=== PATIENT | female | born 1930 | race African-American/Black ===

== ENCOUNTER 2017-12-28 12:47 | Outpatient (CLI) | payer MEDICARE, BC ==
--- NOTE | 2017-12-28 15:48 | MRI ---
MRI OF BRAIN PERFORMED WITHOUT CONTRAST ENHANCEMENT: History: Unstable gait and dizziness for about a month. FINDINGS: There is some generalized ventricular and sulcal prominence. The ventricular size appears fairly cons istent with the degree of sulcal atrophy. There is increased T2 and FLAIR signal change within the wh ite matter most compatible with chronic ischemic white matter ischemic change in a patient of this ag e. On the diffusion weighted sequence there are no signs to suggest any type of acute infarct. No eviden ce of hemorrhage or mass effect. Incidental note is made of empty sella. IMPRESSION: 1. Atrophy and chronic white matter change. 2. Empty sella. POS: LUPE
== END 2017-12-28 12:48 | disposition home or self-care (01) ==
LOC: BICMRI 12:47
PROVIDERS: ATTEND Family Medicine
DX: R26.9 Unspecified abnormalities of gait and mobility (principal); G31.9 Degenerative disease of nervous system, unspecified
CPT/HCPCS: 70551

== ENCOUNTER 2018-05-31 12:52 | Outpatient (CLI) | payer MEDICARE, BC ==
--- NOTE | 2018-05-31 14:07 | ULT ---
RENAL ULTRASOUND: Comparison: 03-08-18 History: Chronic kidney disease stage IV. Technique: Multiplanar grayscale and color doppler images were obtained in a renal ultrasound. FINDINGS: There are anechoic cysts in both kidneys. The largest is seen on the left measuring 3.1 cm in greates t dimension. The kidneys demonstrate normal cortical echogenicity without hydronephrosis or calculi a nd measure 9.3 and 9.2 cm in length on the right and left, respectively. Urinary bladder is decompressed. IMPRESSION: Bilateral renal cysts. POS: TONO
== END 2018-05-31 12:53 | disposition home or self-care (01) ==
LOC: BICULT 12:52
PROVIDERS: ATTEND Internal Medicine Nephrology
DX: N18.4 Chronic kidney disease, stage 4 (severe) (principal); N28.1 Cyst of kidney, acquired
CPT/HCPCS: 76770

== ENCOUNTER 2018-06-27 17:05 | Inpatient (IN) | payer MEDICARE, BC ==
[2018-06-27 18:12] LABS: #Lymphocytes 1.3 thou/uL (1.20-3.40); #Monocytes 0.7 thou/uL (0.11-0.59); #Neutrophils 6.4 thou/uL (1.40-6.50); %Basophils 0.4 % (0.0-1.0); %Eosinophils 0.6 % (0.0-10.0); %Lymphocytes 15.1 % (21.0-51.0); %Monocytes 8.2 % (0.0-10.0); %Neutrophils 75.8 % (42.0-75.0); Hemoglobin 8.9 g/dL (12.0-16.0); Mean Corpuscular HGB CONC 30.5 g/dL (32.0-36.0); Mean Corpuscular Hemoglobin 26.1 pg (27.0-31.0); Mean Corpuscular Volume 85.6 fL (78.0-98.0); Mean Platelet Volume 10.7 fL (7.4-10.4); Platelet Count 192 thou/uL (130-400); RBC Distribution Width 14.7 % (11.5-14.5); Red Blood Cell (RBC) Count 3.41 mill/uL (4.20-5.40); White Blood Cell (WBC) Count 8.4 thou/uL (4.8-10.8)
--- NOTE | 2018-06-27 18:19 | RAD ---
CHEST ONE VIEW: History: Dyspnea. Comparison: 03-08-18 FINDINGS: Cardiac silhouette is magnified and enlarged. Pulmonary vasculature upper limits of normal. Ill-defin ed opacity at the left lateral lung base now obscures the left lateral cardiophrenic angle. Slight le ftward shift of the mediastinum with aortic calcification. No evidence of pneumothorax. Prominent deg enerative changes of the shoulders. IMPRESSION: 1. Increasing atelectasis at the left lung base. Cause is not evident. 2. Atherosclerosis. POS: TONO
[2018-06-27 18:25] LABS: ALT (SGPT) 28 U/L (8-55); AST (SGOT) 27 U/L (5-34); Alkaline Phosphatase 142 U/L (40-150); Anion Gap 14 mmol/L (10-20); BUN (Urea Nitrogen) 54 mg/dL (9.8-20.1); Bilirubin, Total 0.2 mg/dL (0.2-1.2); Calc. Creatinine Clearance 0 mL/min (70-130); Calcium 9.9 mg/dL (7.8-10.44); Carbon Dioxide 20 mmol/L (23-31); Chloride 109 mmol/L (98-107); Estimated GFR-MDRD 16; Globulin 4.1 g/dL (2.4-3.5); Glucose 122 mg/dL (83-110); Protein, Total 8.1 g/dL (6.0-8.3); Sodium 136 mmol/L (136-145)
[2018-06-27 18:51] LABS: Potassium 7.3 mmol/L (3.5-5.1)
[2018-06-27] MEDS ORDERED: Furosemide 40 MG/4 ML VIAL ONE (19:23)
[2018-06-27] MEDS ORDERED: Albumin 25% 25 GM/100 ML BOT IVPB SCH (19:45)
[2018-06-27 21:08] LABS: Bilirubin Negative (Negative); Blood, Urine Negative (Negative); Clarity CLOUDY (Clear); Glucose, Urine (Dipstick) Negative (Negative); Leukocyte Negative (Negative); Nitrite Negative (Negative); Protein, Urine (Dipstick) 100 mg/dL (Neg-Trace); Specific Gravity, Urine 1.021 (1.002-1.036); Urobilinogen 0.2 mg/dL (0.2-1.0)
[2018-06-27 21:13] LABS: Bacteria/HPF None Seen HPF (None Seen); Hyaline Casts/LPF 4-6 HYALINE CAST LPF (0-3 Hyaline); Pathc Cast-AUWi Flag 0.54 (0-2.49)
[2018-06-27 21:23] LABS: RBC/HPF 0-3 HPF (0-3)
[2018-06-27 21:33] LABS: Troponin I 0.015 ng/mL (< 0.028)
[2018-06-27] MEDS ORDERED: Calcium Chloride 1 GM/10 ML Abboject SYRINGE IVP SCH (22:30)
--- NOTE | 2018-06-27 23:25 | HP ---
PRIMARY CARE PHYSICIAN: Dr. Gutierrez. THE PATIENT'S LABORER BITUMINOUS PAVING: Dr. Ferrell. CHIEF COMPLAINT: "Swelling and I can't breathe." HISTORY OF PRESENT ILLNESS: Ms. Howard is a pleasant 88-year-old female, who has a history of hypertension as well as chronic kidney disease. She was in her usual state of health until she says about 3 weeks ago after she left the hospital. She was placed on a new medication for her diabetes and she says ever since then, she has been swelling and she could not breathe. She says it has been more or less progressive to the point where she had to come to the hospital for evaluation. She also notes some cramping in her legs and she says when she would wake up in the morning, her face and hands would be swollen. She notices a little bit of nausea as well. She denies any chest pain, however. She denies any orthopnea, but she does say that she has to get up through the night short of breath off and on. She is also noted to eat quite a bit of bananas a day and when she came to the ER for evaluation, she was found to have a potassium of 7.3, her creatinine was 3.2, a bit higher than her baseline and she was found to have some borderline cardiomegaly. Nephrology has been called from the ER and she has been given Kayexalate as well as Lasix and she is being admitted for further evaluation. REVIEW OF SYSTEMS: All systems were reviewed and are negative except for that mentioned in the history of present illness. PAST MEDICAL HISTORY: Significant for chronic kidney disease stage 4, hypertension, diabetes mellitus type 2, and hypothyroidism. PAST SURGICAL HISTORY: She has had thyroid surgery, appendectomy, and hysterectomy. ALLERGIES: NO KNOWN DRUG ALLERGIES. SOCIAL HISTORY: She is . She had 6 children, three are living. Her code status, she would like to be a full code. She has never designated a medical power of emr implementation specialist, but says her children will "know what to do." She has a history of cerebrovascular disease in her mother, and her father had cerebrovascular disease. FAMILY HISTORY: Significant for a mother who had heart disease. CURRENT MEDICATIONS: 1. Januvia 50 mg daily. 2. Tramadol 50 mg q.6 hours as needed. 3. Levothyroxine 75 mcg p.o. daily. 4. Crestor 40 mg p.o. at bedtime. 5. Omeprazole 20 mg daily. 6. Calcitriol 0.25 mcg daily. 7. Hydralazine 25 mg t.i.d. 8. Metoprolol 25 mg twice a day. 9. Vitamin D daily. 10. Iron daily. PHYSICAL EXAMINATION: GENERAL: She is alert and oriented. She appears to be in no acute distress. She is well developed and well nourished and very cooperative with the exam and a bit chronically ill appearing. VITAL SIGNS: Blood pressure was 151/80, heart rate 45, respiratory rate of 18, temperature is 98.6. HEENT: Her pupils are equal, round, and reactive to light. Extraocular muscles are intact. Her sclerae anicteric. Throat, she has poor dentition, no erythema, no exudates. NECK: There is no jugular venous distention. No bruits. LUNGS: She has some bibasilar rales and an occasional expiratory wheeze. No rhonchi. CARDIOVASCULAR: Heart rate is irregular and bradycardic. She has a grade 2/6 systolic murmur to the carotids. ABDOMEN: Obese, it is soft, it is nontender and nondistended. Positive for bowel sounds. There is no rebound, no guarding. No organomegaly. EXTREMITIES: She has 2+ pitting edema bilaterally. No calf pain. NEUROLOGIC: Her cranial nerves are intact. Her muscle strength is 5/5 in both her lower extremities. SKIN AND INTEGUMENT: No significant skin changes, although she does have some mycotic nails and some long nails. IMAGING STUDIES: On her chest x-ray, she has cardiomegaly as well as increased pulmonary vascular markings and this is by my reading. On her EKG, she has atrial fibrillation. Her heart rates in the 40s. There was some left axis deviation and some T-wave abnormality in leads II and III. LABORATORY DATA: Sodium 136, potassium 7.3, chloride is 109, CO2 is 20, BUN of 54, creatinine 3.2, glucose is 122. Her white blood cell count is 8.4, hemoglobin 8.9, hematocrit is 29.2, and platelet count is 192. Urinalysis is essentially negative. ASSESSMENT: This is a pleasant 88-year-old female, who presents to the emergency room with shortness of breath. She was also found to be hyperkalemic dangerously so and the hyperkalemia is the most critical aspect of her presentation. 1. Hyperkalemia. This is likely due to dietary intake of excessive potassium rich foods in the face of renal insufficiency. She has been given Lasix and Kayexalate in the ER. Calcium chloride was considered; however, her heart rate is bradycardic and this could exacerbate the bradycardia; therefore, we will hold on this. Nephrology has already been consulted and we will recheck her potassium through the night and further recommendations are from Nephrology. We will also consult dietitian for a low-potassium diet and renal appropriate diet. 2. Acute respiratory failure, likely as a result of congestive heart failure exacerbation. She has been given Lasix in the ER and we will also get an echocardiogram as well. Consider Cardiology consult if necessary. 3. Hypertension. We will reconcile and restart her home medications and adjust as needed. 4. Diabetes mellitus. Due to her advanced kidney disease, we will discontinue all oral medications, and insulin is likely the safest medication in her situation. She will need to be taught on how to use insulin and we will start with a low-dose Lantus as well as adding a sliding scale. 5. Hypothyroidism. Continue her home medications and she does appear to be euthyroid. Job ID: [id number]
[2018-06-27] MEDS ORDERED: HumaLOG 300 UNITS/3 ML VIAL SC PRN ×2 (23:50)
[2018-06-27] MEDS ORDERED: Dextrose 5% in Water 1,000 ML IV PRN (23:50)
[2018-06-27] MEDS ORDERED: Dextrose 50% Abboject 50 ML SYRINGE SLOW IVP PRN (23:50)
[2018-06-28 00:36] LABS: Troponin I 0.017 ng/mL (< 0.028)
[2018-06-28 01:30] LABS: Potassium 5.7 mmol/L (3.5-5.1)
[2018-06-28 02:03] VITALS: BMI 27.2
[2018-06-28] MEDS: hydrALAZINE 20 MG/ML VIAL SLOW IVP PRN ×2 (03:37→11:19)
[2018-06-28 05:37] LABS: #Eosinphils 0.1 thou/uL (0.0-0.7); #Lymphocytes 1.8 thou/uL (1.20-3.40); #Monocytes 1.1 thou/uL (0.11-0.59); #Neutrophils 5.1 thou/uL (1.40-6.50); %Basophils 0.5 % (0.0-1.0); %Eosinophils 0.7 % (0.0-10.0); %Lymphocytes 22.2 % (21.0-51.0); %Monocytes 13.8 % (0.0-10.0); %Neutrophils 62.8 % (42.0-75.0); Hemoglobin 8.3 g/dL (12.0-16.0); Mean Corpuscular HGB CONC 30.5 g/dL (32.0-36.0); Mean Corpuscular Hemoglobin 26.4 pg (27.0-31.0); Mean Corpuscular Volume 86.5 fL (78.0-98.0); Mean Platelet Volume 11.5 fL (7.4-10.4); Platelet Count 158 thou/uL (130-400); RBC Distribution Width 14.6 % (11.5-14.5); Red Blood Cell (RBC) Count 3.16 mill/uL (4.20-5.40); White Blood Cell (WBC) Count 8.1 thou/uL (4.8-10.8)
[2018-06-28 05:58] LABS: Anion Gap 18 mmol/L (10-20); BUN (Urea Nitrogen) 54 mg/dL (9.8-20.1); Calc. Creatinine Clearance 14 mL/min (70-130); Calcium 9.9 mg/dL (7.8-10.44); Carbon Dioxide 19 mmol/L (23-31); Chloride 112 mmol/L (98-107); Estimated GFR-MDRD 17; Glucose 86 mg/dL (83-110); Potassium 5.9 mmol/L (3.5-5.1); Sodium 143 mmol/L (136-145)
[2018-06-28] MEDS: Levothyroxine Sodium 75 MCG TAB PO SCH (06:30)
[2018-06-28] MEDS: Furosemide 100 MG/10 ML VIAL SLOW IVP SCH ×2 (06:31→15:04)
[2018-06-28] MEDS ORDERED: Albumin 25% 25 GM/100 ML BOT IVPB ONE (08:55)
[2018-06-28] MEDS: Heparin 5,000 UNITS/ML VIAL SC SCH ×3 (08:57→21:29)
[2018-06-28] MEDS: hydrALAZINE 25 MG TAB PO SCH ×3 (08:58→21:31)
[2018-06-28] MEDS: Metoprolol Tartrate 25 MG TAB PO SCH ×2 (08:58→21:32)
[2018-06-28] MEDS ORDERED: Epoetin (ESRD) 20,000 UNITS/ML SC SCH (09:00)
--- NOTE | 2018-06-28 09:27 | PDOC.PN ---
- Subjective Encounter Start Date: 06/28/18 Encounter Start Time: 11:10 Subjective: Patient reports decreased SOB. No chest pain. No cough. - Objective Resuscitation Status - Order Detail: 06/27/18 22:43 Resuscitation Status Routine Resuscitation Status: FULL: Full Resuscitation MAR Reviewed: Yes Vital Signs & Weight: Vital Signs (12 hours) Temp Pulse Resp BP BP Pulse Ox 06/28/18 08:58 65 141/69 H 06/28/18 07:20 98.1 F 63 16 136/67 97 06/28/18 06:35 59 L 154/82 H 06/28/18 04:00 98.2 F 63 19 191/77 H 96 06/28/18 03:37 67 191/77 H 06/27/18 23:50 98.8 F 72 16 146/67 H 95 Weight Weight 158 lb 9.6 oz I&O: 06/27/18 06/28/18 06/29/18 06:59 06:59 06:59 Intake Total 0 Balance 0 Result Diagrams: 06/28/18 05:13 06/28/18 05:13 Additional Labs: Accuchecks 06/28/18 05:24 POC Glucose 99 Phys Exam - Physical Examination Constitutional: NAD HEENT: moist MMs Respiratory: no wheezing, no rales, no rhonchi Cardiovascular: RRR, no significant murmur Gastrointestinal: soft Neurological: non-focal, moves all 4 limbs Psychiatric: normal affect, A&O x 3 Dx/Plan (1) Hyperkalemia Code(s): E87.5 - HYPERKALEMIA Status: Acute (2) Acute renal failure superimposed on stage 4 chronic kidney disease Code(s): N17.9 - ACUTE KIDNEY FAILURE, UNSPECIFIED; N18.4 - CHRONIC KIDNEY DISEASE, STAGE 4 (SEVERE) Status: Acute (3) DM2 (diabetes mellitus, type 2) Status: Chronic Comment: controlled off meds currently (4) HTN (hypertension) Code(s): I10 - ESSENTIAL (PRIMARY) HYPERTENSION Status: Chronic Comment: moderate elevations (5) Shortness of breath Code(s): R06.02 - SHORTNESS OF BREATH Status: Acute Comment: possibly due to volume overload/CHF from renal failure, given Lasix in ER, not requiring oxygen, ECHO pending (6) Hypothyroidism Code(s): E03.9 - HYPOTHYROIDISM, UNSPECIFIED Status: Chronic Comment: continue home medication (7) Tobacco abuse Code(s): Z72.0 - TOBACCO USE Status: Chronic - Plan cont current plan of care, DVT proph w/heparin, DVT proph w/SCDs * . - Discharge Day Encounter end time: 11:20
--- NOTE | 2018-06-28 09:55 | CON ---
DATE OF CONSULTATION: HISTORY OF PRESENT ILLNESS: Ms. Howard is an 88-year-old black female with known history of chronic renal failure secondary to a presumed diabetic nephropathy. She was admitted due to her hyperkalemia. She was also complaining of some leg edema as well as mild shortness of breath. Chest x-ray on admission shows no overt CHF per se. However, potassium was noted at 7.3, and for that reason, she was admitted for further management. In addition, her renal function slightly worse than her baseline. We are being consulted for her acute kidney injury on top of her chronic renal failure. Potassium this morning is much improved. It is currently at 5.9. She is currently being diuresed at the same time due to her mild shortness of breath and leg edema. I have decided to place her on a regular salt poor albumin infusion. REVIEW OF SYSTEMS: Positive for leg edema. Positive for mild shortness of breath. No chest pain. No syncopal episode. No productive cough. No diarrhea. No constipation. Appetite and energy level is fair. No headache. No diplopia. No fever or chills. No hematochezia. No melena. No dysuria. No urinary frequency. No abdominal pain. MEDICATIONS: Currently on, 1. Albumin 25 g IV q.6. 2. Procrit 7500 units subcu daily. 3. Ferrous sulfate 325 mg b.i.d. 4. Furosemide 80 mg IV q.12. 5. Humalog sliding scale. 6. Synthroid 75 mcg daily. 7. Lopressor 25 mg p.o. b.i.d. 8. Protonix 40 mg tablet once a day. PAST MEDICAL HISTORY: 1. Chronic renal failure from diabetic nephropathy, hypertension, status post acute kidney injury - prerenal. 2. Hypothyroidism. 3. Chronic anemia from chronic renal disease. 4. History of hyperlipidemia. 5. GERD. 6. DJD. PAST SURGICAL HISTORY: Status post hysterectomy, status post appendectomy, status post excision of lung nodule - benign finding, and status post colonoscopy. SOCIAL HISTORY: The patient has 3 children. She lives alone. She lives in [place]. She is . Smoked about one pack a day for the last 50 years. Alcohol, none. No IV drug abuse. No blood transfusion. Sedentary lifestyle. FAMILY HISTORY: No family history of ESRD. ALLERGIES: NONE. TRAUMA: None. IMMUNIZATIONS: Not up-to-date. HOSPITALIZATIONS: Please see past medical history. PHYSICAL EXAMINATION: VITAL SIGNS: Blood pressure is noted at 136/67, heart rate 63, respiratory rate 16, temperature 98.1, and pulse ox 97%. GENERAL: Noted to be awake, comfortable, but somewhat lethargic, not in overt distress. SKIN: Adequate turgor. HEENT: Pale conjunctivae. Anicteric sclerae. NECK: No neck mass. No carotid bruits. No JVD. CHEST: No deformities. LUNGS: Decreased breath sounds. No wheezing. No crackles. HEART: Normal sinus rhythm. No murmur. No gallops. No rubs. ABDOMEN: Globular, soft, and nontender. No masses. EXTREMITIES: Positive for edema. NEUROLOGICAL: Awake, intermittently confused, not in distress. LABORATORY DATA: Laboratories of June 28, 2018; white count 8.1, hemoglobin 8.3. Sodium 143, potassium 5.9, chloride 112, carbon dioxide 19, BUN 54, creatinine 3.19, GFR 17 mL/minute, glucose 86, and calcium 9.9. Troponin I 0.017. IMAGING DATA: Chest x-ray, no overt CHF. ASSESSMENT AND PLAN: 1. Leg edema - currently on Lasix at 80 mg IV q.12. Adjust Lasix as needed. Continue to monitor renal function. 2. Acute kidney injury on top of her chronic renal failure. I suspect a prerenal etiology. Due to the current diuretic regimen, I have added albumin 25 g IV q.6 in the hope that she will tolerate the current diuretic regimen. I do not see any indication for acute dialysis with this patient. 3. Anemia. Start iron supplementation and Epogen. This patient may eventually need prison placement. I do not think she is able to care for herself at home. We will recheck basic metabolic panel and CBC in a.m. Job ID: [id number]
[2018-06-28] MEDS: Albumin 25% 25 GM/100 ML BOT IVPB SCH ×2 (11:07→18:06)
[2018-06-28] MEDS: Ferrous Sulfate 325 MG TAB PO SCH (18:06)
--- NOTE | 2018-06-28 18:58 | CON ---
DATE OF CONSULTATION: REASON FOR CONSULTATION: Shortness of breath, bradycardia, and atrial fibrillation. HISTORY OF PRESENT ILLNESS: Ms. Howard is an 88-year-old woman with no previous coronary artery disease, recently presented with a shortness of breath and ? atrial fibrillation with slow ventricular response. After reviewing her EKG, it appeared to be a junctional rhythm with PACs. Her shortness of breath per family and the patient have been slowly increasing over the last several months. She is also complaining of lower extremity edema. Her most recent echo suggested a normal LVEF with moderate aortic insufficiency and diastolic dysfunction. Current rate is a sinus rhythm. She has been on beta ajit therapy for hypertension. PAST MEDICAL HISTORY: Chronic kidney disease, diastolic dysfunction, hypertension, diabetes mellitus, and hypothyroidism. ALLERGIES: NONE. SOCIAL HISTORY: Currently . She has 3 living children. REVIEW OF SYSTEMS: Ten-point review of systems is reviewed and as above, otherwise negative. PHYSICAL EXAMINATION: VITAL SIGNS: Blood pressure 200/80 and down to 141/63, pulse 71, and respirations 20. GENERAL: Patient is a pleasant female, who is in no acute distress. The patient appears their stated age. NEUROLOGIC: The patient is alert and oriented x3 with no focal neurologic deficits. HEENT: Sclerae without icterus. Mouth has moist mucous membranes with normal pallor. NECK: No JVD. Carotid upstroke brisk. No bruits bilaterally. LUNGS: Clear to auscultation with unlabored respirations. BACK: No scoliosis or kyphosis. CARDIAC: Regular rate and rhythm with normal S1 and S2. No S3 or S4 noted. No significant rubs, murmurs, thrills, or gallops noted throughout the precordium. PMI is not displaced. There is no parasternal heave. ABDOMEN: Soft, nontender, nondistended. No peritoneal signs present. No hepatosplenomegaly. No abnormal striae. EXTREMITIES: 2+ femoral and 2+ dorsalis pedis pulses. No cyanosis, clubbing, or edema. SKIN: No gross abnormalities. PERTINENT LABORATORY DATA: Hemoglobin 8.3. Creatinine 3.19, potassium 5.9, and sodium 143. EKG as above. IMPRESSION: 1. Bradycardia. 2. Diastolic dysfunction. 3. Moderate aortic insufficiency. 4. Chronic kidney disease. RECOMMENDATIONS: At this point, we will stop beta ajit therapy. We would like to see her heart rate increased. She did appear to have junctional rhythm. May consider outpatient 3-week event recorder. Diuresis per Dr. Ferrell. She is currently on Lasix. Otherwise, aggressive blood pressure management is recommended. Continue conservative therapy. Job ID: [id number]
[2018-06-29] MEDS: Albumin 25% 25 GM/100 ML BOT IVPB SCH ×5 (00:36→20:13)
[2018-06-29 05:03] LABS: #Eosinphils 0.1 thou/uL (0.0-0.7); #Lymphocytes 1.5 thou/uL (1.20-3.40); #Monocytes 0.9 thou/uL (0.11-0.59); #Neutrophils 3.5 thou/uL (1.40-6.50); %Basophils 0.7 % (0.0-1.0); %Eosinophils 1.2 % (0.0-10.0); %Lymphocytes 25.3 % (21.0-51.0); %Monocytes 14.5 % (0.0-10.0); %Neutrophils 58.3 % (42.0-75.0); Hemoglobin 7.3 g/dL (12.0-16.0); Mean Corpuscular HGB CONC 31.8 g/dL (32.0-36.0); Mean Corpuscular Hemoglobin 26.9 pg (27.0-31.0); Mean Corpuscular Volume 84.8 fL (78.0-98.0); Mean Platelet Volume 10.7 fL (7.4-10.4); Platelet Count 150 thou/uL (130-400); RBC Distribution Width 14.4 % (11.5-14.5); Red Blood Cell (RBC) Count 2.69 mill/uL (4.20-5.40)
[2018-06-29 05:12] LABS: Anion Gap 15 mmol/L (10-20); BUN (Urea Nitrogen) 55 mg/dL (9.8-20.1); Calc. Creatinine Clearance 14 mL/min (70-130); Calcium 9.8 mg/dL (7.8-10.44); Carbon Dioxide 25 mmol/L (23-31); Chloride 106 mmol/L (98-107); Estimated GFR-MDRD 16; Glucose 75 mg/dL (83-110); Potassium 4.3 mmol/L (3.5-5.1); Sodium 142 mmol/L (136-145)
[2018-06-29] MEDS: Furosemide 100 MG/10 ML VIAL SLOW IVP SCH ×2 (05:41→10:18)
[2018-06-29] MEDS: Levothyroxine Sodium 75 MCG TAB PO SCH (05:41)
--- NOTE | 2018-06-29 06:10 | PDOC.CTH ---
Cardiology Progress Note - Subjective feels better overall. No complaints. - Objective Vital Signs Temp Pulse Resp BP BP Pulse Ox 06/28/18 21:31 65 138/61 06/28/18 19:30 99.3 F 65 16 138/61 99 Weight 158 lb 9.6 oz 06/27/18 06/28/18 06/29/18 06:59 06:59 06:59 Intake Total 0 500 Output Total 600 Balance 0 -100 - Physical Examination General/Neuro: NAD Neck: carotid US brisk, no JVD present Lungs: CTA, unlabored respirations Heart: PMI normal, RRR Abdomen: NT/ND, soft Extremities: + femoral B - Labs Result Diagrams: 06/29/18 03:50 06/29/18 03:50 Troponin/CKMB Troponin I 0.017 ng/mL (< 0.028) 06/28/18 00:03 - Assessment/Plan Dysrythmia SOB Anemia Moderate AI Diastolic dysfunction CKD Symptoms multifactorial Pt with CKD, Grade I diastolic dysfunction, anemia and moderate AI which all con contribute to current symptoms Treat each condition separately Pt with moderate AI(conservative treatment) in addition to diastolic dysfunction. Treat conservatively with lasix for now (Treatment per Dr. Ferrell) No new recommendations
[2018-06-29] MEDS ORDERED: Albumin 25% 25 GM/100 ML BOT IVPB ONE (07:57)
[2018-06-29] MEDS ORDERED: Furosemide 100 MG/10 ML VIAL SLOW IVP SCH (08:15)
--- NOTE | 2018-06-29 08:21 | PRG ---
DATE OF SERVICE: 06/29/2018 SUBJECTIVE: Ms. Howard is an 88-year-old black female with chronic renal failure, was admitted for mild shortness of breath as well as worsening leg edema. She has been started on diuretics. In addition, due to the worsening renal dysfunction, I started her on albumin infusion. Furthermore, Cardiology has evaluated this patient. The feeling is that she may have some degree of diastolic dysfunction. Creatinine is relatively stable. We will continue current management. The patient is feeling better. OBJECTIVE: VITAL SIGNS: Blood pressure 163/79, heart rate 64, respiratory rate 16, temperature 98.5, and pulse ox 96%. GENERAL: Awake, alert, comfortable, not in distress. SKIN: Adequate turgor. HEENT: Slightly pale conjunctivae. Anicteric sclerae. No neck mass. No carotid bruits. No JVD. CHEST: No deformities. LUNGS: Clear breath sounds. No wheezing. HEART: Normal sinus rhythm. Grade 2/6 systolic murmur. No gallops. No rubs. ABDOMEN: Globular, soft, nontender. EXTREMITIES: Positive for edema. MEDICATIONS: Medications of June 29, 2018, was reviewed. LABORATORY DATA: Laboratories of June 29, 2018; white count 6.6, hemoglobin 7.3, sodium 142, potassium 4.3, chloride 106, carbon dioxide 25, BUN 55, creatinine 3.28, GFR 16 mL/minute, calcium 9.8. ASSESSMENT AND PLAN: 1. Hyperkalemia much improved. Serum potassium is now within normal. 2. Mild congestive heart failure-diastolic dysfunction-clinically much improved. Adjust Lasix to 40 mg IV q.12. 3. Anemia, continuing weekly Epogen. Since the patient is symptomatic, we will give 1 unit of packed RBC. 4. Acute kidney injury on top of her chronic renal failure, relatively stable renal function. Continue albumin infusion. Continue judicious use of diuretics. There is no indication for any emergent dialysis with this patient. Recheck basic metabolic profile and CBC in a.m. Job ID: [id number]
[2018-06-29] MEDS: Ferrous Sulfate 325 MG TAB PO SCH ×2 (08:41→16:23)
[2018-06-29] MEDS: Metoprolol Tartrate 25 MG TAB PO SCH ×2 (08:43→20:23)
[2018-06-29] MEDS: Heparin 5,000 UNITS/ML VIAL SC SCH ×3 (08:43→20:22)
[2018-06-29] MEDS: hydrALAZINE 25 MG TAB PO SCH ×3 (08:43→20:23)
--- NOTE | 2018-06-29 09:11 | PDOC.PN ---
- Subjective Encounter Start Date: 06/29/18 Encounter Start Time: 11:00 Subjective: Patient feeling better. Diuresing well. No SOB/Cough. - Objective Resuscitation Status - Order Detail: 06/27/18 22:43 Resuscitation Status Routine Resuscitation Status: FULL: Full Resuscitation MAR Reviewed: Yes Vital Signs & Weight: Vital Signs (12 hours) Temp Pulse Resp BP BP Pulse Ox 06/29/18 07:33 98.5 F 64 16 163/79 H 96 06/28/18 21:31 65 138/61 Weight Weight 158 lb 9.6 oz I&O: 06/28/18 06/29/18 06/30/18 06:59 06:59 06:59 Intake Total 0 950 Output Total 2250 Balance 0 -1300 Result Diagrams: 06/29/18 03:50 06/29/18 03:50 Additional Labs: Accuchecks 06/29/18 06/28/18 06/28/18 05:57 20:40 17:31 POC Glucose 90 90 128 H 06/28/18 10:41 POC Glucose 89 Phys Exam - Physical Examination Constitutional: NAD HEENT: moist MMs Respiratory: no rales, no rhonchi occ wheeze Cardiovascular: RRR, no significant murmur Gastrointestinal: soft, non-tender, positive bowel sounds trace edema Psychiatric: normal affect, A&O x 3 Dx/Plan (1) Hyperkalemia Code(s): E87.5 - HYPERKALEMIA Status: Resolved (2) Acute renal failure superimposed on stage 4 chronic kidney disease Code(s): N17.9 - ACUTE KIDNEY FAILURE, UNSPECIFIED; N18.4 - CHRONIC KIDNEY DISEASE, STAGE 4 (SEVERE) Status: Acute Comment: stable, albumin and lasix (3) DM2 (diabetes mellitus, type 2) Status: Chronic Comment: controlled off meds currently (4) HTN (hypertension) Code(s): I10 - ESSENTIAL (PRIMARY) HYPERTENSION Status: Chronic Comment: moderate elevations (5) Shortness of breath Code(s): R06.02 - SHORTNESS OF BREATH Status: Acute Comment: possibly due to volume overload/CHF from renal failure, given Lasix in ER, not requiring oxygen, ECHO with AI and mild diastolic dysfunction, treat with diuresis as tolerated (6) Hypothyroidism Code(s): E03.9 - HYPOTHYROIDISM, UNSPECIFIED Status: Chronic Comment: continue home medication (7) Tobacco abuse Code(s): Z72.0 - TOBACCO USE Status: Chronic - Plan cont current plan of care, PT/OT, DVT proph w/heparin, DVT proph w/SCDs * . - Discharge Day Encounter end time: 11:10
[2018-06-30] MEDS: hydrALAZINE 20 MG/ML VIAL SLOW IVP PRN ×2 (03:54→16:56)
[2018-06-30] MEDS: Albumin 25% 25 GM/100 ML BOT IVPB SCH ×4 (03:58→20:36)
[2018-06-30] MEDS: Acetaminophen 325 MG TAB PO PRN (03:58)
[2018-06-30] MEDS: Levothyroxine Sodium 75 MCG TAB PO SCH (06:33)
[2018-06-30] MEDS: Furosemide 100 MG/10 ML VIAL SLOW IVP SCH (06:33)
[2018-06-30 07:29] LABS: Anion Gap 19 mmol/L (10-20); BUN (Urea Nitrogen) 59 mg/dL (9.8-20.1); Calc. Creatinine Clearance 13 mL/min (70-130); Calcium 10.6 mg/dL (7.8-10.44); Carbon Dioxide 24 mmol/L (23-31); Chloride 104 mmol/L (98-107); Eosinophils 1 % (0-10); Estimated GFR-MDRD 16; Glucose 77 mg/dL (83-110); Hemoglobin 8.9 g/dL (12.0-16.0); Lymphocytes 24 % (21-51); MDiff Complete? YES; Mean Corpuscular HGB CONC 31.6 g/dL (32.0-36.0); Mean Corpuscular Hemoglobin 26.5 pg (27.0-31.0); Mean Platelet Volume 10.7 fL (7.4-10.4); Monocytes 16 % (0-10); Neutrophil 59 % (42-75); Platelet Count 151 thou/uL (130-400); Platelet Morphology Comment Appears Adequate; Potassium 3.7 mmol/L (3.5-5.1); RBC Distribution Width 14.6 % (11.5-14.5); Red Blood Cell (RBC) Count 3.34 mill/uL (4.20-5.40); Sodium 143 mmol/L (136-145); White Blood Cell (WBC) Count 7.3 thou/uL (4.8-10.8)
[2018-06-30] MEDS ORDERED: Albumin 25% 25 GM/100 ML BOT IVPB ONE (08:17)
[2018-06-30] MEDS: Ferrous Sulfate 325 MG TAB PO SCH ×2 (08:25→16:56)
[2018-06-30] MEDS: Metoprolol Tartrate 25 MG TAB PO SCH ×2 (08:26→20:36)
[2018-06-30] MEDS: hydrALAZINE 25 MG TAB PO SCH ×3 (08:26→20:36)
[2018-06-30] MEDS: Furosemide 40 MG/4 ML VIAL SLOW IVP SCH (08:34)
[2018-06-30] MEDS: Heparin 5,000 UNITS/ML VIAL SC SCH ×3 (08:35→20:36)
--- NOTE | 2018-06-30 08:39 | PRG ---
DATE OF SERVICE: 06/30/2018 SUBJECTIVE: Ms. Howard is an 88-year-old black female, who was admitted from mild shortness of breath with leg edema. She was started on diuresis. In addition, cardiac echo showed diastolic dysfunction. Cardiology is also following. I have further adjusted her Lasix downwards. Albumin infusion was given in the last 2 days. She was also noted to be anemic, and we gave her 1 unit of packed RBC. In addition, she has been started on iron and Procrit. No new complaints today. Denies any chest pain or shortness of breath. OBJECTIVE: VITAL SIGNS: Blood pressure 149/67, heart rate 65, respiratory rate 16, temperature 99.7, and pulse ox 97% on room air. GENERAL: Awake, alert, comfortable, not in distress. SKIN: Adequate turgor. HEENT: Slightly pale conjunctivae. Anicteric sclerae. No neck mass. No carotid bruits. No JVD. CHEST: No deformities. LUNGS: Decreased breath sounds. HEART: Normal sinus rhythm. No murmurs, no gallops, no rubs. ABDOMEN: Globular, soft, nontender. No masses. EXTREMITIES: No edema. MEDICATIONS: Medications of June 30, 2018, was reviewed. LABORATORY DATA: Laboratories of June 30, 2018; white count 7.3, hemoglobin 8.9, hematocrit 28.1. Sodium 143, potassium 3.7, chloride 104, carbon dioxide 24, BUN 59, creatinine 3.32, glucose 77, and calcium 10.6. ASSESSMENT AND PLAN: 1. Acute kidney injury/chronic renal failure. Creatinine minimally elevated 3.32 when compared yesterday. I have decreased the furosemide from 40 mg IV q.12 to once a day. We will give her one more day of albumin infusion. No indication for any dialytic intervention. 2. Anemia, status post blood transfusion. Continuing iron supplementation and Procrit. 3. Shortness of breath secondary to diastolic dysfunction. Currently, on a diuretic regimen. Diuretics have been adjusted. 4. Recheck basic metabolic profile, CBC in a.m. Job ID: [id number]
[2018-06-30] MEDS ORDERED: Furosemide 100 MG/10 ML VIAL SLOW IVP SCH (09:00)
--- NOTE | 2018-06-30 09:30 | PDOC.PN ---
- Subjective Encounter Start Date: 06/30/18 Encounter Start Time: 11:10 Subjective: No CP/SOB/Cough/Wheezing. Doing well. - Objective Resuscitation Status - Order Detail: 06/27/18 22:43 Resuscitation Status Routine Resuscitation Status: FULL: Full Resuscitation MAR Reviewed: Yes Vital Signs & Weight: Vital Signs (12 hours) Temp Pulse Resp BP BP Pulse Ox 06/30/18 08:26 68 06/30/18 08:19 97.9 F 68 20 179/75 H 96 06/30/18 05:12 65 149/67 H 06/30/18 03:54 65 190/78 H 06/30/18 03:34 99.7 F H 63 16 190/78 H 97 06/29/18 23:32 98.5 F 56 L 22 H 169/69 H 99 Weight Weight 149 lb 3.2 oz I&O: 06/29/18 06/30/18 07/01/18 06:59 06:59 06:59 Intake Total 950 1950 Output Total 2250 2000 Balance -1300 -50 Result Diagrams: 06/30/18 06:43 06/30/18 06:43 Additional Labs: Accuchecks 06/30/18 06/29/18 06/29/18 05:12 20:12 16:44 POC Glucose 81 137 H 87 06/29/18 11:09 POC Glucose 112 H Phys Exam - Physical Examination Constitutional: NAD HEENT: moist MMs Respiratory: no wheezing, no rales, no rhonchi Cardiovascular: RRR Gastrointestinal: soft, positive bowel sounds Neurological: non-focal, moves all 4 limbs Psychiatric: normal affect, A&O x 3 Dx/Plan (1) Hyperkalemia Code(s): E87.5 - HYPERKALEMIA Status: Resolved (2) Acute renal failure superimposed on stage 4 chronic kidney disease Code(s): N17.9 - ACUTE KIDNEY FAILURE, UNSPECIFIED; N18.4 - CHRONIC KIDNEY DISEASE, STAGE 4 (SEVERE) Status: Acute Comment: stable, albumin and lasix (3) DM2 (diabetes mellitus, type 2) Status: Chronic Comment: controlled off meds currently (4) HTN (hypertension) Code(s): I10 - ESSENTIAL (PRIMARY) HYPERTENSION Status: Chronic Comment: moderate elevations (5) Shortness of breath Code(s): R06.02 - SHORTNESS OF BREATH Status: Acute Comment: possibly due to volume overload/CHF from renal failure, given Lasix in ER, not requiring oxygen, ECHO with AI and mild diastolic dysfunction, treat with diuresis as tolerated (6) Hypothyroidism Code(s): E03.9 - HYPOTHYROIDISM, UNSPECIFIED Status: Chronic Comment: continue home medication (7) Tobacco abuse Code(s): Z72.0 - TOBACCO USE Status: Chronic - Plan cont current plan of care, PT/OT, DVT proph w/heparin, DVT proph w/SCDs Dr. Ferrell decreasing Lasix, one more day of albumin, possibly home tomorrow -: if ok from renal standpoint * . - Discharge Day Encounter end time: 11:20
[2018-06-30] MEDS ORDERED: Rosuvastatin 10 MG TAB PO SCH (21:00)
[2018-07-01] MEDS: Levothyroxine Sodium 75 MCG TAB PO SCH (04:47)
[2018-07-01] MEDS: Albumin 25% 25 GM/100 ML BOT IVPB SCH (04:47)
[2018-07-01 06:43] LABS: Anion Gap 18 mmol/L (10-20); BUN (Urea Nitrogen) 68 mg/dL (9.8-20.1); Calc. Creatinine Clearance 13 mL/min (70-130); Calcium 10.6 mg/dL (7.8-10.44); Carbon Dioxide 23 mmol/L (23-31); Chloride 104 mmol/L (98-107); Estimated GFR-MDRD 15; Glucose 82 mg/dL (83-110); Potassium 3.6 mmol/L (3.5-5.1); Sodium 141 mmol/L (136-145)
[2018-07-01 07:14] LABS: Hemoglobin 9.1 g/dL (12.0-16.0); Mean Corpuscular HGB CONC 31.5 g/dL (32.0-36.0); Mean Corpuscular Hemoglobin 26.7 pg (27.0-31.0); Mean Platelet Volume 10.7 fL (7.4-10.4); Platelet Count 158 thou/uL (130-400); RBC Distribution Width 14.6 % (11.5-14.5); Red Blood Cell (RBC) Count 3.41 mill/uL (4.20-5.40); White Blood Cell (WBC) Count 7.2 thou/uL (4.8-10.8)
[2018-07-01 07:52] LABS: Anisocytosis SLIGHT = 6-15 cells (100X) (0-5/hpf); Band 2 % (5-11); Elliptocytes SLIGHT = 2-5 cells (100X) (0-1/hpf); Eosinophils 1 % (0-10); Hypochromia SLIGHT = 6-15 cells (100X) (0-5/hpf); Lymphocytes 23 % (21-51); MDiff Complete? YES; Monocytes 3 % (0-10); Neutrophil 70 % (42-75); Ovalocytes SLIGHT = 2-5 cells (100X) (0-1/hpf); Platelet Morphology Comment Appears Adequate; Poikilocytosis SLIGHT = 6-15 cells (100X) (0-5/hpf); Polychromasia SLIGHT = 2-3 cells (100X) (0-2/hpf); Schistocytes SLIGHT = 2-5 cells (100X) (0-1/hpf)
[2018-07-01] MEDS: Heparin 5,000 UNITS/ML VIAL SC SCH (08:14)
[2018-07-01] MEDS: Metoprolol Tartrate 25 MG TAB PO SCH (08:15)
[2018-07-01] MEDS: Ferrous Sulfate 325 MG TAB PO SCH (08:15)
[2018-07-01] MEDS: hydrALAZINE 25 MG TAB PO SCH (08:15)
[2018-07-01] MEDS: Furosemide 40 MG/4 ML VIAL SLOW IVP SCH (08:15)
[2018-07-01] MEDS ORDERED: Furosemide 20 MG/2 ML VIAL SLOW IVP SCH (09:00)
[2018-07-01] MEDS ORDERED: Calcitriol 0.25 MCG CAP PO SCH (09:00)
[2018-07-01] MEDS ORDERED: Furosemide 40 MG/4 ML VIAL SLOW IVP SCH (09:21)
--- NOTE | 2018-07-01 09:54 | PRG ---
DATE OF SERVICE: 07/01/2018 SUBJECTIVE: Ms. Howard is an 88-year-old black female, who was seen by the Renal Service for her hyperkalemia and acute kidney injury on top of her chronic renal failure. She initially was admitted for mild shortness of breath and complained of leg edema. She has been diuresing given albumin infusion. Renal function is relatively stable except for the smaller incremental increase in the creatinine. I have further adjusted the diuretics today downwards. Her leg edema is much improved. She denies any chest pain or shortness of breath. OBJECTIVE: VITAL SIGNS: Blood pressure 179/69, heart rate 60, respiratory rate 17, temperature 98.8, and pulse ox 97%. GENERAL: Awake, alert, sitting comfortable, not in distress. SKIN: Adequate turgor. HEENT: She has a slightly pale conjunctivae. Anicteric sclerae. NECK: No neck mass. No carotid bruits. No JVD. CHEST: No deformities. LUNGS: Clear breath sounds. No wheezing. No crackles. HEART: Normal sinus rhythm. No murmurs. No gallops. No rubs. ABDOMEN: Globular, soft, and nontender. No masses. EXTREMITIES: No edema. No deformities. MEDICATIONS: Medications of July 01, 2018, reviewed. LABORATORY DATA: Laboratories of July 01, 2018, white count 7.2 and hemoglobin 9.1. On June 30, 2018; sodium was 143, potassium 3.7, chloride 104, carbon dioxide 24, BUN 59, creatinine 3.32, and calcium 10.6. ASSESSMENT AND PLAN: 1. Acute kidney injury/chronic renal failure - superimposed prerenal azotemia. Continue adjusting diuretics downwards. No indication for any dialytic intervention. 2. Anemia. The patient has been started on iron supplementation and Epogen. 3. Congestive heart failure, clinically much improved. 4. Leg edema dramatically much improved. Continue current management. Recheck basic metabolic and CBC in a.m. Job ID: [id number]
[2018-07-01 10:19] LABS: Anion Gap 16 mmol/L (10-20); BUN (Urea Nitrogen) 67 mg/dL (9.8-20.1); Calc. Creatinine Clearance 12 mL/min (70-130); Calcium 10.6 mg/dL (7.8-10.44); Carbon Dioxide 24 mmol/L (23-31); Chloride 104 mmol/L (98-107); Estimated GFR-MDRD 15; Glucose 133 mg/dL (83-110); Potassium 3.2 mmol/L (3.5-5.1); Sodium 141 mmol/L (136-145)
--- NOTE | 2018-07-01 11:04 | DIS ---
DATE OF ADMISSION: 06/27/2018 DATE OF DISCHARGE: 07/01/2018 DISCHARGE DIAGNOSES: 1. Acute on chronic diastolic heart failure. 2. Acute respiratory failure with hypoxia. 3. Hyperkalemia. 4. Acute kidney injury. 5. Chronic kidney disease, stage 4. 6. Hypothyroidism. 7. Hypertension. 8. Type 2 diabetes mellitus. 9. Anemia of chronic disease/chronic kidney disease. 10. Bradycardia. 11. Moderate aortic regurgitation. 12. Obesity. 13. Physical deconditioning. CONSULTS: 1. Nephrology. 2. Cardiology. HOSPITAL COURSE: An 88-year-old female with known history of CKD, hypertension, and type 2 diabetes, who was admitted due to worsening shortness of breath and swelling. The patient was found on presentation to have severe hyperkalemia with potassium of 7.3. She also was noted to have irregular heart rate and bradycardia. Impression of acute respiratory failure with hypoxia due to acute CHF was made and the patient was treated for hyperkalemia with dextrose/insulin, Kayexalate and others with resolution. She also was started on diuretics with improvement of swelling and shortness of breath and was subsequently weaned off oxygen. Due to irregular heart rate and rhythm, the patient was felt to have atrial fibrillation and Cardiology consult was obtained. However, review of the rhythm showed junctional rhythm and bradycardia. This was felt to be due to hyperkalemia and beta-ajit. Beta-ajit was stopped and heart rate improved and was subsequently restarted. The patient also was noted to have hypertension, which was not well controlled. Hence, antihypertensives were adjusted appropriately with improvement in blood pressure control. She also was found to have elevation in creatinine consistent with BIRDIE and CKD, stage 4. Nephrology consult was obtained and diuretics was adjusted, and the patient also received colloid with improvement. The patient received physical therapy and was ambulating. She remained hemodynamically stable and was subsequently discharged home with home health. Of note, the patient was on Januvia 50 mg p.o. daily prior to admission, but this was decreased to 25 mg p.o. daily in line with kidney function. PHYSICAL EXAMINATION: VITAL SIGNS: Temperature 98.8, pulse 60, respiratory rate 17, SpO2 of 97 on room air, and blood pressure 179/69. GENERAL: Elderly female, in no obvious distress. Afebrile. Anicteric. Acyanotic. HEENT: Normocephalic, atraumatic. Oral mucosa is moist. Pupils are equal and reacting to light. CARDIOVASCULAR: Regular rhythm and rate with normal sounds 1 and 2. Systolic murmur heard at aortic area. RESPIRATORY: Good air entry bilaterally with no obvious crackle or rhonchi or use of accessory muscles. GASTROINTESTINAL: Abdomen is obese, soft, nontender, and nondistended with normal bowel sounds. EXTREMITIES: Grossly normal looking and atraumatic. No edema was appreciated. NEUROLOGIC: Conscious and alert and oriented x3 with appropriate mental status. Cranial nerves II through XII are intact. The patient moves all extremities. She ambulates with a walker. DISCHARGE MEDICATIONS: 1. Tramadol 50 mg p.o. q.6 p.r.n. 2. Levothyroxine 75 mcg p.o. daily. 3. Omeprazole 20 mg p.o. daily. 4. Crestor 40 mg p.o. daily at bedtime. 5. Tylenol 650 mg p.o. q.6 p.r.n. 6. Amlodipine 5 mg p.o. daily. 7. Calcitriol 0.25 mcg p.o. daily. 8. Cholecalciferol 1000 units p.o. daily. 9. Ferrous sulfate 325 mg p.o. b.i.d. 10. Lasix 40 mg p.o. b.i.d. 11. Hydralazine 50 mg p.o. t.i.d. 12. Metoprolol 25 mg p.o. b.i.d. 13. Januvia 25 mg p.o. daily. CONDITION AT DISCHARGE: Improved and stable. FOLLOWUP: The patient is to follow with PCP in 1 week. She is to follow with economics instructor in 2 weeks. She also is to follow with electrical prospector in 3 to 4 weeks. TIME SPENT: This discharge took more than 38 minutes. Job ID: [id number]
[2018-07-01 11:45] VITALS: BP 146/66; TEMP 98.3
[2018-07-01] MEDS: Acetaminophen 325 MG TAB PO PRN (12:05)
--- NOTE | 2018-07-02 21:51 | EKG ---
Test Reason : Blood Pressure : / mmHG Vent. Rate : 043 BPM Atrial Rate : 040 BPM P-R Int : 000 ms QRS Dur : 088 ms QT Int : 508 ms P-R-T Axes : 000 -36 044 degrees QTc Int : 429 ms Atrial fibrillation with slow ventricular response Left axis deviation Voltage criteria for left ventricular hypertrophy Abnormal ECG Confirmed by BANDAR HADLEY, DRE ([id number]), videotape editor TONY AGARWAL ([id number]) on 07/02/2018 9:51:27 PM Referred By: Confirmed By:DRE PORTILLO MD
== END 2018-07-01 13:46 | disposition home health service (06) | DRG 640 ==
LOC: ERS 17:05 → ERHOLD 21:13 → 2NO 23:27
PROVIDERS: ADMIT Internal Medicine; ATTEND Internal Medicine
DX: E87.5 Hyperkalemia (principal); I50.33 Acute on chronic diastolic (congestive) heart failure; J96.01 Acute respiratory failure with hypoxia; I13.0 Hypertensive heart and chronic kidney disease with heart failure and stage 1 through stage 4 chronic kidney disease, or unspecified chronic kidney disease; N17.9 Acute kidney failure, unspecified; N18.4 Chronic kidney disease, stage 4 (severe); E03.9 Hypothyroidism, unspecified; E11.22 Type 2 diabetes mellitus with diabetic chronic kidney disease; D63.1 Anemia in chronic kidney disease; I35.1 Nonrheumatic aortic (valve) insufficiency; K21.9 Gastro-esophageal reflux disease without esophagitis; M19.90 Unspecified osteoarthritis, unspecified site; Z90.710 Acquired absence of both cervix and uterus; Z90.49 Acquired absence of other specified parts of digestive tract; Z72.0 Tobacco use; Z79.4 Long term (current) use of insulin; Z79.899 Other long term (current) drug therapy
CPT/HCPCS: 36415; 36416; 36430; 71045; 80048; 80053; 81003; 81015; 84132; 84484; 85025; 86850; 86900; 86901; 87086; 93005; 93306; 93798; 96365; 96366; 96375; J0360; J1644; J1940; J7620; P9016; P9047; Q4081

== ENCOUNTER 2018-10-13 01:05 | Inpatient (IN) | payer MEDICARE, BC ==
[2018-10-13] MEDS ORDERED: methylPREDNISolone Sod Succ/PF 125 MG/2 ML VIAL ONE (01:11)
[2018-10-13 01:40] LABS: Mean Corpuscular Volume 86.8 fL (78.0-98.0)
[2018-10-13 01:51] LABS: #Eosinphils 0.1 thou/uL (0.0-0.7); #Lymphocytes 2.9 thou/uL (1.20-3.40); #Neutrophils 4.9 thou/uL (1.40-6.50); %Basophils 0.5 % (0.0-1.0); %Eosinophils 0.8 % (0.0-10.0); %Lymphocytes 32.5 % (21.0-51.0); %Monocytes 11.6 % (0.0-10.0); %Neutrophils 54.5 % (42.0-75.0); ALT (SGPT) 24 U/L (8-55); AST (SGOT) 25 U/L (5-34); Albumin 3.5 g/dL (3.4-4.8); Alkaline Phosphatase 97 U/L (40-150); Anion Gap 13 mmol/L (10-20); Anisocytosis SLIGHT = 6-15 cells (100X) (0-5/hpf); BUN (Urea Nitrogen) 51 mg/dL (9.8-20.1); Bilirubin, Total 0.2 mg/dL (0.2-1.2); Calc. Creatinine Clearance 0 mL/min (70-130); Calcium 9.9 mg/dL (7.8-10.44); Carbon Dioxide 18 mmol/L (23-31); Chloride 114 mmol/L (98-107); Estimated GFR-MDRD 18; Globulin 2.9 g/dL (2.4-3.5); Glucose 119 mg/dL (83-110); Hemoglobin 8.5 g/dL (12.0-16.0); MDiff Complete? YES; Mean Corpuscular HGB CONC 29.5 g/dL (32.0-36.0); Mean Corpuscular Hemoglobin 25.6 pg (27.0-31.0); Mean Platelet Volume 10.8 fL (7.4-10.4); Platelet Count 165 thou/uL (130-400); Potassium 6.4 mmol/L (3.5-5.1); Protein, Total 6.4 g/dL (6.0-8.3); RBC Distribution Width 17.1 % (11.5-14.5); Red Blood Cell (RBC) Count 3.33 mill/uL (4.20-5.40); Sodium 139 mmol/L (136-145)
[2018-10-13] MEDS ORDERED: Furosemide 40 MG/4 ML VIAL ONE (04:13)
[2018-10-13] MEDS ORDERED: traMADol HCl 50 MG TAB ONE ×2 (05:07→05:10)
--- NOTE | 2018-10-13 08:04 | RAD ---
Exam: Chest one view HISTORY:Dyspnea Comparison: 06/27/2018 FINDINGS: Lungs: Interstitial opacities bilaterally Cardiac silhouette:Enlarged Pulmonary vessels: Engorgement is demonstrated, centrally Pleural Spaces: Mild blunting of each costophrenic sulcus, similar appearing. Pneumothorax: None Vascular calcification. Osseous abnormalities: None of acuity. IMPRESSION: CHF with edema
[2018-10-13] MEDS ORDERED: Ondansetron PF 4 MG/2 ML Vial IVP PRN (12:22)
[2018-10-13] MEDS ORDERED: Ondansetron ODT 4 MG TAB PO PRN (12:22)
[2018-10-13] MEDS ORDERED: Acetaminophen 650 MG Suppository PR PRN (12:22)
[2018-10-13] MEDS ORDERED: Dextrose 5% in Water 1,000 ML IV PRN (14:58)
[2018-10-13] MEDS ORDERED: HumaLOG 300 UNITS/3 ML VIAL SC PRN (14:58)
[2018-10-13] MEDS ORDERED: Dextrose 50% Abboject 50 ML SYRINGE SLOW IVP PRN (14:58)
[2018-10-13] MEDS ORDERED: Furosemide 20 MG TAB PO SCH (15:30)
[2018-10-13 15:39] VITALS: BMI 27.6
--- NOTE | 2018-10-13 16:06 | HP ---
CHIEF COMPLAINT: Shortness of breath. HISTORY OF PRESENT ILLNESS: Ms. Christopher Howard is a pleasant 88-year-old woman, who is known to have COPD and uses oxygen at home intermittently, who presented yesterday with complaints of shortness of breath. The patient states she was at home when her daughter had plugged in a new air freshener which she states she does often and the patient suddenly developed cough. She states she could not tolerate the smell of the air freshener and attempted to unplug it, but continued to cough causing her to become short of breath. She therefore called EMS. On arrival of the EMS crew, she was noted to be saturating 100% on room air. She was given 2 nebulizer treatments en route to the hospital. The patient states she often experiences triggers with air fresheners and sometimes with freshly mowed lawn at her home. She is usually able to manage this with her oxygen. The patient states she does continue to smoke, but usually goes through 1 pack in a month. She denies any recent fevers, chills, or sweats. She does have a cough at baseline that is dry and not worse than usual. Denies any hemoptysis. Has not had any chest pain. No abdominal pain or cramping. Reports a decreased appetite since she was diagnosed with hypothyroidism, but she continues to make herself food and eats well in order to take her regular medications. She denies having any headaches, she occasionally feels lightheaded when standing. All other review of systems are negative. PAST MEDICAL HISTORY: 1. End-stage renal disease, seen by Dr. Ferrell. 2. Type 2 diabetes mellitus. 3. Hypothyroidism. 4. Hypertension. 5. COPD. 6. Tobacco use. PAST SURGICAL HISTORY: 1. Left lung, benign tumor removed. 2. Appendectomy. 3. Hysterectomy. 4. Thyroidectomy. 5. Tonsillectomy. SOCIAL HISTORY: The patient lives with her daughter. She continues to smoke and states she will smoke 1 pack per month. Has been smoking for the last 30 years and previously smoked 2 packs per day. Denies any illicit drug use. No alcohol consumption. ALLERGIES: NO KNOWN DRUG ALLERGIES. CURRENT MEDICATIONS: 1. Omeprazole. 2. Tramadol. 3. Hydralazine. 4. Januvia. 5. Calcitriol. 6. Levothyroxine. 7. Metoprolol tartrate. 8. Vitamin D3. 9. Crestor. PHYSICAL EXAMINATION: GENERAL: The patient appears thin, well developed, and in no acute distress. VITAL SIGNS: Temperature 98.5, pulse 43, respirations 22, O2 saturation 97% on room air, blood pressure 123/50. HEENT: Normocephalic and atraumatic. Pupils are equal, round, reactive to light. Sclerae without icterus. Oropharynx is clear. NECK: Supple. CARDIAC: Notable for loud holosystolic murmur. LUNGS: Notable for expiratory wheezing throughout all lung ceron. No crackles. ABDOMEN: Soft, nontender, nondistended. Normoactive bowel sounds present. EXTREMITIES: Without lower leg edema. NEUROLOGIC: Alert and oriented x3. SKIN: Without rash or jaundice. LABORATORY DATA: White blood count 9, hemoglobin 8.5, stable, platelet 165. Sodium 139, potassium 6.4, BUN 51, creatinine 3.1. Glucose 119. LFTs unremarkable. Lactic acid 1.2. BNP 495.9. Troponin negative. IMAGING DATA: Chest x-ray shows mild CHF. IMPRESSION AND PLAN: Ms. Hoawrd is a very pleasant 88-year-old woman, who is being referred for management of the following. 1. Chronic obstructive pulmonary disease exacerbation. The patient states shortness of breath and coughing was triggered by air fresheners. She usually has a reaction to at home. No evidence of infective process. We will continue DuoNeb's as the patient does have wheezing on exam. We will continue to monitor O2 saturations. 2. Congestive heart failure. The patient with known history of heart failure with an elevated BNP. Echocardiogram requested. We will give a low dose of Lasix 20 mg p.o., given she does have end-stage renal disease. We will hold off on any fluids. 3. Bradycardia. Metoprolol held with morning meds in the ED, due to bradycardia , HR remains in 40-low 50s. Cardiology consult requested. 4. End-stage renal disease. Renal function appears stable. We will consult Dr. Ferrell, her gas analyst. 5. Gastrointestinal prophylaxis. 6. Deep venous thrombosis prophylaxis with mechanical sequential compression devices. 7. Code status full. Surrogate decision makers are her daughters, which are Alex Osei and Daniella Osei. The patient's case was discussed with Dr. Keller, who agrees upon care as described above. Job ID: [id number] MTDD
[2018-10-13] MEDS: HumaLOG 300 UNITS/3 ML VIAL SC PRN (16:52)
[2018-10-13] MEDS ORDERED: traMADol HCl 50 MG TAB PO PRN (16:54)
[2018-10-13] MEDS ORDERED: EPOETIN ALFA-EPBX (ESRD) 4,000 UNIT/ML VIAL SC SCH (17:45)
--- NOTE | 2018-10-13 18:05 | CON ---
DATE OF CONSULTATION: 10/13/2018 REASON FOR CONSULTATION: Heart failure. HISTORY OF PRESENT ILLNESS: Ms. Howard is a pleasant 88-year-old female patient of Dr. Escobar, who comes to the hospital for shortness of breath. She was at home and she says that there is an air freshener that is really aggravating to her as far as the smell is concern, eventually started to get short of breath and was brought into the hospital. She had some lower extremity edema, was started on IV Lasix, and has already diuresed some and is feeling much better back to her baseline. She denies any chest pain, tightness, or pressure. Her breathing is at baseline. PAST MEDICAL HISTORY: 1. She has history of COPD, on home oxygen. She only uses it when she needs it at home. 2. Chronic kidney disease stage 4, followed by Dr. Ferrell. 3. Type 2 diabetes. 4. Hypothyroidism. 5. Hypertension. 6. Tobacco use, one pack lasts for about a month. PAST SURGICAL HISTORY: 1. Left lung tumor removed. 2. Appendectomy. 3. Hysterectomy. 4. Thyroidectomy. 5. Tonsillectomy. SOCIAL HISTORY: Lives with her daughter. Continues to smoke a pack lasts for a whole month. She has done so for the last 30 years. Used to be 2 packs a day. No drug use. No alcohol use. OUTPATIENT MEDICATIONS: Include; 1. Omeprazole. 2. Tramadol. 3. Hydralazine. 4. Januvia. 5. Calcitriol. 6. Levothyroxine. 7. Metoprolol tartrate. 8. Vitamin D3. 9. Crestor. ALLERGIES: NO KNOWN DRUG ALLERGIES. REVIEW OF SYSTEMS: A 12-point review of systems was done and was all negative unless stated in the history of present illness. PHYSICAL EXAMINATION: VITAL SIGNS: Temperature 98.1, pulse 63, respiratory rate 20, saturating 98% on room air, and blood pressure 174/89. In the ER, her blood pressure was 144/60 on arrival. GENERAL: Awake, alert, and oriented x3, in no distress. HEENT: Normocephalic and atraumatic. NECK: Supple. LUNGS: Clear. CARDIOVASCULAR: S1 and S2. No S3 or S4. No murmurs. ABDOMEN: Soft. Positive bowel sounds. EXTREMITIES: No edema. SKIN: Warm and dry. LABORATORY DATA: Laboratory work was reviewed. CBC with a white count of 9, hemoglobin of 8.5, hematocrit 28, platelet count of 165. Chemistry; sodium of 139, potassium 6.4, chloride 114, carbon dioxide of 18, anion gap of 13, BUN of 51, creatinine 3.01, GFR of 18, glucose of 119. Lactic acid was normal. BNP was mildly elevated at 495. Troponin was negative x1. IMAGING STUDIES: EKG was reviewed. Most recent echo was done in June of this year, EF of 55% to 60%. There was LVH and diastolic dysfunction. ASSESSMENT AND PLAN: 1. Acute on chronic diastolic heart failure. 2. Chronic obstructive pulmonary disease exacerbation, most likely mild. PLAN: 1. Agree with diuresis. I would give her one more dose of IV Lasix at 20 mg once, and if she remains as she looks right now, she should be able to go home tomorrow as she is quite stable for now. 2. We would continue home regimen, but would increase her hydralazine to 50 t.i.d. to control her blood pressure a little bit better. Thank you for letting us to participate in the care of your patient. We will continue to follow. Job ID: [id number]
[2018-10-13] MEDS ORDERED: hydrALAZINE 25 MG TAB PO SCH (21:00)
[2018-10-13] MEDS: hydrALAZINE 25 MG TAB PO SCH (21:21)
[2018-10-13] MEDS: Rosuvastatin 20 MG TAB PO SCH (21:21)
[2018-10-13] MEDS: Famotidine/PF 20 mg/2ml Vial SLOW IVP SCH (21:22)
--- NOTE | 2018-10-13 23:43 | CON ---
DATE OF CONSULTATION: HISTORY OF PRESENT ILLNESS: Ms. Howard is an 88-year-old black female with chronic renal failure from presumed diabetic nephropathy and admitted for shortness of breath. The etiology of her shortness of breath is multifactorial - COPD exacerbation/from CHF. She was given one-time dose of Lasix in addition. Neb treatment has been started. According to the patient, her shortness of breath was precipitated by exposure to an allergen? She was in the clinic about 2 weeks ago. At that time, she was asymptomatic. Please note, review of her meds shows that she was not on any diuretic at that time. Recently, she has been started on diuresis by her PCP? We are now being consulted for her mild hyperkalemia as well as worsening renal dysfunction - creatinine is now noted at 3.01. Previously, this was 2.54. A Cardiology consult has been also done with Dr. Blair. REVIEW OF SYSTEMS: Positive for shortness of breath. No chest pain. No nausea. No vomiting. No syncopal episode. Positive for nonproductive cough. No abdominal pain. Appetite and energy level are fair. No headache. No diplopia. No syncopal episode. No fever or chills. No dysuria. No melena. No hematemesis. HOME MEDICATIONS: Shows the following, 1. Furosemide 40 mg p.o. b.i.d. 2. Amlodipine 5 mg daily. 3. Acetaminophen 650 mg q.4 p.r.n. 4. Vitamin D3 at 1000 international daily. 5. Ferrous sulfate 325 mg p.o. b.i.d. 6. Furosemide 40 mg p.o. b.i.d. 7. Levothyroxine 75 mcg tablet daily. 8. Rosuvastatin 40 mg tablet at bedtime. 9. Metoprolol tartrate 25 mg p.o. b.i.d. 10. Omeprazole 20 mg once a day. 11. Hydralazine 50 mg p.o. t.i.d. 12. Januvia 25 mg daily. 13. Tramadol 50 mg q.6 p.r.n. 14. Calcitriol 0.25 mcg tablet daily. PAST MEDICAL HISTORY: 1. Status post CHF. 2. Chronic renal failure from diabetic nephropathy. 3. Hypertension. 4. Type 2 diabetes mellitus. 5. Hyperlipidemia. 6. Hypothyroidism. 7. Chronic anemia. 8. Chronic pain. 9. History of GERD. PAST SURGICAL HISTORY: Status post hysterectomy, status post excision of lung nodule, status post appendectomy, status post colonoscopy. SOCIAL HISTORY: The patient lives alone. She has good support from her children. She lives in [place]. She is . Smoked 1 pack a day for the last 50 years - occasional smoking. Alcohol none. No drug abuse. No blood transfusion. Sedentary lifestyle. FAMILY HISTORY: No family history of ESRD. ALLERGIES: NONE. TRAUMA: None. IMMUNIZATION: Not up to date. HOSPITALIZATIONS: Please see past medical history. PHYSICAL EXAMINATION: VITAL SIGNS: Blood pressure is 174/89, heart rate 58, respiratory rate 16, pulse ox 98% on room air. GENERAL: Awake, alert, comfortable, not in distress. SKIN: Adequate turgor. HEENT: Slightly pale conjunctivae. Anicteric sclerae. NECK: No neck mass. No carotid bruits. No JVD. CHEST: No deformities. LUNGS: Decreased breath sounds. HEART: She has normal sinus rhythm. She has grade 2/6 systolic murmur. No gallops. No rubs. ABDOMEN: Globular, soft, nontender. No masses. EXTREMITIES: No edema. No deformities. LABORATORY DATA: Laboratories of October 13, 2018; white count 9, hemoglobin 8.5. Sodium 139, potassium 6.4, chloride 104, carbon dioxide 18, BUN 51, creatinine 3.01, glucose 119, calcium 9.9, AST 25, ALT 24, alkaline phosphatase 97, albumin is 3.5. BNP is 495. Chest x-ray of October 13, 2018, shows interstitial opacities bilaterally. ASSESSMENT AND PLAN: 1. Chronic renal failure from diabetic nephropathy. Creatinine has worsened from 2.54 to most recent value of 3.01. Currently, she is at stage 4 chronic renal failure. There may be a prerenal component - ? from CHF. 2. Continue supportive care. P.r.n. diuretics as needed. I would probably resume her Lasix at 40 mg tablet once a day. 3. Mild hyperkalemia. Kayexalate 30 g with lactulose 30 mL one-time dose. I do not think there is indication for any emergent dialysis with this patient. 4. Anemia. Continue iron supplementation. We will add Epogen at 7500 units subcu q. week. 5. Secondary hyperparathyroidism. Continue calcitriol. 6. Recheck basic metabolic profile, CBC in a.m. 7. Chronic obstructive pulmonary disease exacerbation. Consider starting the patient on neb treatment if she has not been started on this. Job ID: [id number]
[2018-10-14] MEDS: Levothyroxine Sodium 75 MCG TAB PO SCH (04:11)
[2018-10-14 04:46] LABS: #Lymphocytes 1.7 thou/uL (1.20-3.40); #Monocytes 1.4 thou/uL (0.11-0.59); #Neutrophils 10.1 thou/uL (1.40-6.50); %Basophils 0.2 % (0.0-1.0); %Lymphocytes 13.1 % (21.0-51.0); %Monocytes 10.7 % (0.0-10.0); %Neutrophils 76.1 % (42.0-75.0); Hemoglobin 8.5 g/dL (12.0-16.0); Mean Corpuscular HGB CONC 29.9 g/dL (32.0-36.0); Mean Corpuscular Hemoglobin 25.7 pg (27.0-31.0); Mean Platelet Volume 10.5 fL (7.4-10.4); Platelet Count 147 thou/uL (130-400); White Blood Cell (WBC) Count 13.3 thou/uL (4.8-10.8)
[2018-10-14 05:05] LABS: Anion Gap 13 mmol/L (10-20); BUN (Urea Nitrogen) 51 mg/dL (9.8-20.1); Calc. Creatinine Clearance 17 mL/min (70-130); Calcium 9.9 mg/dL (7.8-10.44); Carbon Dioxide 20 mmol/L (23-31); Chloride 110 mmol/L (98-107); Estimated GFR-MDRD 19; Glucose 93 mg/dL (83-110); Potassium 5.1 mmol/L (3.5-5.1); Sodium 138 mmol/L (136-145)
[2018-10-14] MEDS: Acetaminophen 325 MG TAB PO PRN ×2 (06:19→15:20)
[2018-10-14] MEDS: Calcitriol 0.25 MCG CAP PO SCH (08:56)
[2018-10-14] MEDS: Furosemide 40 MG TAB PO SCH (08:56)
[2018-10-14] MEDS: Alogliptin 6.25 MG TAB PO SCH (08:56)
[2018-10-14] MEDS: Doxycycline 100 MG CAP PO SCH ×2 (08:57→20:52)
[2018-10-14] MEDS: hydrALAZINE 25 MG TAB PO SCH ×3 (08:58→20:53)
[2018-10-14] MEDS ORDERED: predniSONE 20 MG TAB PO SCH (09:00)
[2018-10-14 09:06] LABS: Lactic Acid 1.8 mmol/L (0.5-2.2)
--- NOTE | 2018-10-14 09:40 | PRG ---
DATE OF SERVICE: 10/14/2018 SUBJECTIVE: Ms. Howard is 88-year-old black female admitted initially for mild shortness of breath. The feeling of this could be multifactorial. Most likely from chronic obstructive pulmonary disease exacerbation. She was empirically given one time dose of Lasix and currently placed on maintenance at 40 mg tablet once a day. Renal function is now much improved. She was also noted to have been hyperkalemic and she received one dose of Kayexalate. Potassium is also much improved. No new complaints today. No chest pain or shortness of breath. OBJECTIVE: VITAL SIGNS: Blood pressure 129/61, heart rate 86, respiratory rate 16, temperature 98.8, pulse ox 98%. GENERAL: Awake, sitting comfortable, not in distress. SKIN: Adequate turgor. HEENT: Slightly pale conjunctivae. Anicteric sclerae. No neck mass. No carotid bruits. No JVD. CHEST: No deformities. LUNGS: Clear breath sounds. No wheezing. No crackles. HEART: Normal sinus rhythm. Grade 2/6 systolic murmur. No gallops or rubs. ABDOMEN: Globular, soft, nontender. No masses. EXTREMITIES: No edema. No deformities. MEDICATIONS: Medications of October 14, 2018, was reviewed. LABORATORY DATA: Laboratories of October 14, 2018, sodium 138, potassium 5.1, chloride 110, carbon dioxide 20, BUN 51, creatinine 2.82, GFR 19 mL/minute, glucose 93, calcium 9.9. Hemoglobin 8.5. ASSESSMENT AND PLAN: 1. Shortness of breath, multifactorial etiology. Considering chronic obstructive pulmonary disease exacerbation as well as mild congestive heart failure. Currently on neb treatment. Currently on maintenance Lasix 40 mg tablet once a day. She is tolerating the said medication. 2. Acute kidney injury/chronic renal failure, stabilizing renal function. Creatinine now is near baseline. Continue current management. Continue current dose of the diuretics. There is no indication for any dialytic intervention. 3. Anemia. Epogen has been started. 4. Overall agree with current management. Job ID: [id number]
[2018-10-14 11:47] LABS: Bilirubin Negative (Negative); Blood, Urine Negative (Negative); Clarity Clear (Clear); Glucose, Urine (Dipstick) Normal (Negative); Leukocyte Negative Leu/uL (Negative); Nitrite Negative (Negative); Protein, Urine (Dipstick) Negative (Neg-Trace); RBC/HPF 0-3 HPF (0-3); Squamous Epithelial 0-3 HPF (0-3); Urobilinogen Normal mg/dL (Less than 2); WBC/HPF None Seen HPF (0-3)
[2018-10-14 11:57] LABS: Bacteria/HPF None Seen HPF (None Seen)
[2018-10-14 11:58] LABS: Urine Culture Reflex No No
--- NOTE | 2018-10-14 12:50 | PDOC.CTH ---
Cardiology Progress Note - Subjective She is doing well. No chest pain, breathing at baseline on room air. - Objective Vital Signs Temp Pulse Resp BP BP Pulse Ox 10/14/18 10:55 98.4 F 89 20 159/69 H 96 10/14/18 10:41 92 16 97 10/14/18 08:58 86 10/14/18 07:48 98.8 F 86 16 129/61 98 10/14/18 06:37 82 16 98 10/14/18 04:07 99.2 F 84 21 H 109/50 L 97 Weight 162 lb 6.4 oz 10/13/18 10/14/18 10/15/18 06:59 06:59 06:59 Intake Total 625 300 Balance 625 300 - Physical Examination General/Neuro: alert & oriented x3, NAD Neck: no JVD present Lungs: CTA, unlabored respirations Heart: RRR Abdomen: NT/ND Extremities: other: (no edema) - Telemetry Telemetry Rhythm: NSR - Labs Result Diagrams: 10/14/18 04:21 10/14/18 04:21 Troponin/CKMB Troponin I 0.015 ng/mL (< 0.028) 10/13/18 01:21 - Assessment/Plan 1. Acute on chronic diastolic heart failure. 2. COPD. 3. Mild and moderate AR on recent echo. PLAN: - Continue home regimen. - Continue increased dose of Hydralazine at 50 mg TID from now on. - May discharge from cardiac perspective any time. - Follow up in the office with Dr Escobar in 1-2 months.
--- NOTE | 2018-10-14 13:33 | RAD ---
XR Chest Pa Lat STANDARD HISTORY: Cough COMPARISON: Previous day FINDINGS: The heart is enlarged. The aorta is tortuous. There is mild pulmonary vascular congestion w ithout lobar consolidation, pneumothoraces or large effusions.
[2018-10-14] MEDS: Nicotine 7 MG PATCH TD SCH (15:21)
--- NOTE | 2018-10-14 16:00 | PDOC.PN ---
- Subjective Encounter Start Date: 10/14/18 Encounter Start Time: 12:59 Subjective: Patient complaining of SOB and feeling weak. Denies any chest pain. -: No cough. When seen this morning she was feeling great and without any -: complaints. She states she feels generally unwell. Noted to be tachy. She denies any palpitations. Has been getting scheduled nebs. No other complaints. Eating/drinking without difficulty. No n/v. - Objective Resuscitation Status - Order Detail: 10/13/18 12:22 Resuscitation Status Routine Co-Sign Provider: Resuscitation Status: FULL: Full Resuscitation Vital Signs & Weight: Vital Signs (12 hours) Temp Pulse Resp BP BP BP Pulse Ox 10/14/18 15:35 98.7 F 122 H 20 187/74 H 98 10/14/18 14:45 110 H 16 170/72 H 96 10/14/18 14:30 106 H 16 98 10/14/18 10:55 98.4 F 89 20 159/69 H 96 10/14/18 10:41 92 16 97 10/14/18 08:58 86 10/14/18 07:48 98.8 F 86 16 129/61 98 10/14/18 06:37 82 16 98 10/14/18 04:07 99.2 F 84 21 H 109/50 L 97 Weight Weight 162 lb 6.4 oz I&O: 10/13/18 10/14/18 10/15/18 06:59 06:59 06:59 Intake Total 625 540 Balance 625 540 Result Diagrams: 10/14/18 04:21 10/14/18 04:21 Additional Labs: Accuchecks 10/14/18 10/13/18 10/13/18 11:07 20:45 16:49 POC Glucose 132 H 200 H 182 H Phys Exam - Physical Examination Appears fatigued, no severe distress HEENT: moist MMs, sclera anicteric, oral pharynx no lesions Neck: no nodes, supple, full ROM Respiratory: no wheezing, no rales, no rhonchi, clear to auscultation bilateral diminished at the bases bilaterally Cardiovascular: RRR Gastrointestinal: soft, non-tender, no distention Musculoskeletal: no edema, pulses present Neurological: non-focal, normal sensation, moves all 4 limbs Psychiatric: normal affect, A&O x 3 Skin: no rash, normal turgor Dx/Plan (1) CHF (congestive heart failure) Code(s): I50.9 - HEART FAILURE, UNSPECIFIED Status: Chronic Plan: (2) Acute renal failure superimposed on stage 4 chronic kidney disease Code(s): N17.9 - ACUTE KIDNEY FAILURE, UNSPECIFIED; N18.4 - CHRONIC KIDNEY DISEASE, STAGE 4 (SEVERE) Status: Acute Comment: stable, albumin and lasix (3) Chronic obstructive asthma with exacerbation Code(s): J44.1 - CHRONIC OBSTRUCTIVE PULMONARY DISEASE W (ACUTE) EXACERBATION; J45.901 - UNSPECIFIED ASTHMA WITH (ACUTE) EXACERBATION Status: Acute (4) DM2 (diabetes mellitus, type 2) Status: Chronic Comment: controlled off meds currently (5) HTN (hypertension) Code(s): I10 - ESSENTIAL (PRIMARY) HYPERTENSION Status: Chronic Comment: moderate elevations - Plan cont current plan of care CXR: Mild CHF with edema, treated with Lasix 40 mg. -: Tachy in 100s to 130s. No chest pain/palpitations. EKG HR 106. -: Per Dr. Blair, give Lasix IV and monitor overnight, possible d/c tmrw. -: Nebs scheduled and possibly contributing to tachycardia, changed to PRN. -: Patient now agreeable to Nicotine patch. Dr. Keller aware and in agreement with plan as above. Of note, I was notified by [facility] Echo was cancelled at Dr. Ruiz direction due to Echo done in 06/2018.
[2018-10-14] MEDS: HumaLOG 300 UNITS/3 ML VIAL SC PRN (17:01)
[2018-10-14] MEDS ORDERED: Furosemide 40 MG/4 ML VIAL SLOW IVP SCH (17:30)
[2018-10-14] MEDS: Rosuvastatin 20 MG TAB PO SCH (20:53)
[2018-10-14] MEDS: Famotidine/PF 20 mg/2ml Vial SLOW IVP SCH (20:53)
[2018-10-15] MEDS: Levothyroxine Sodium 75 MCG TAB PO SCH (05:55)
[2018-10-15 06:04] LABS: #Lymphocytes 1.2 thou/uL (1.20-3.40); #Monocytes 1.3 thou/uL (0.11-0.59); #Neutrophils 8.6 thou/uL (1.40-6.50); %Basophils 0.1 % (0.0-1.0); %Eosinophils 0.1 % (0.0-10.0); %Lymphocytes 10.5 % (21.0-51.0); %Monocytes 11.4 % (0.0-10.0); %Neutrophils 77.9 % (42.0-75.0); Hemoglobin 8.3 g/dL (12.0-16.0); Mean Corpuscular HGB CONC 28.8 g/dL (32.0-36.0); Mean Corpuscular Hemoglobin 24.7 pg (27.0-31.0); Mean Corpuscular Volume 85.7 fL (78.0-98.0); Mean Platelet Volume 10.8 fL (7.4-10.4); Platelet Count 159 thou/uL (130-400); RBC Distribution Width 17.1 % (11.5-14.5); Red Blood Cell (RBC) Count 3.35 mill/uL (4.20-5.40); White Blood Cell (WBC) Count 11.1 thou/uL (4.8-10.8)
[2018-10-15 06:25] LABS: Anion Gap 15 mmol/L (10-20); BUN (Urea Nitrogen) 55 mg/dL (9.8-20.1); Calc. Creatinine Clearance 16 mL/min (70-130); Calcium 9.8 mg/dL (7.8-10.44); Carbon Dioxide 21 mmol/L (23-31); Chloride 109 mmol/L (98-107); Estimated GFR-MDRD 19; Glucose 81 mg/dL (83-110); Potassium 4.8 mmol/L (3.5-5.1); Sodium 140 mmol/L (136-145)
--- NOTE | 2018-10-15 06:56 | PRG ---
DATE OF SERVICE: 10/15/2018 HISTORY OF PRESENT ILLNESS: Ms. Howard is an 88-year-old black female, who was admitted for shortness of breath. Chest x-ray showed CHF. The other possibility, there is also contribution of COPD exacerbation. This morning, she is feeling better. She is currently on maintenance Lasix at 40 mg tablet once a day. Yesterday afternoon, she developed some shortness of breath. A chest x-ray was repeated. This was relatively unchanged from admission. There is a suggestion that there is a mild CHF. The patient denies any chest pain. OBJECTIVE: VITAL SIGNS: Blood pressure is 145/67, heart rate 108, respiratory rate 18, temperature 98.3, and pulse ox 99 percent room air. GENERAL EXAM: Awake, alert, comfortable, not in overt distress. SKIN: Adequate turgor. HEENT: She has a slightly pale conjunctivae. Anicteric sclerae. No neck mass. No carotid bruits. No JVD. LUNGS: Clear breath sounds with occasional wheezing. HEART: Normal sinus rhythm. Grade 2/6 systolic murmur. No gallops. No rubs. ABDOMEN: Globular, soft, nontender. EXTREMITIES: No edema, no deformities. MEDICATIONS: Medications of October 15, 2018, was reviewed. LABORATORY DATA: Laboratories of October 15, 2018; white count 11.1, hemoglobin 8.3. Sodium 140, potassium 4.8, chloride 109, carbon dioxide 21, BUN 55, creatinine 2.82, glucose 81, calcium 9.8. ASSESSMENT AND PLAN: 1. Acute kidney injury/chronic renal failure, superimposed prerenal azotemia, improving renal function, tolerating current diuretic regimen. Continue Lasix 40 mg tablet once daily. There is no indication for any dialytic intervention with this patient. 2. Hyperkalemia, resolved. 3. Shortness of breath, multifactorial etiology. 4. Continue Lasix 40 mg tablet once daily. 5. Please note, neb treatment placed on hold due to the tachycardia. 6. She does have some wheezing. However, the patient remains asymptomatic today. We will be rechecking another basic metabolic profile and CBC tomorrow, if the patient is still here. Job ID: [id number]
[2018-10-15] MEDS: Doxycycline 100 MG CAP PO SCH ×2 (08:38→20:45)
[2018-10-15] MEDS: predniSONE 20 MG TAB PO SCH (08:38)
[2018-10-15] MEDS: Calcitriol 0.25 MCG CAP PO SCH (08:38)
[2018-10-15] MEDS: hydrALAZINE 25 MG TAB PO SCH ×3 (08:38→20:45)
[2018-10-15] MEDS: Alogliptin 6.25 MG TAB PO SCH (08:38)
[2018-10-15] MEDS: Furosemide 40 MG TAB PO SCH (08:38)
--- NOTE | 2018-10-15 11:17 | PDOC.PN ---
- Subjective Encounter Start Date: 10/15/18 Encounter Start Time: 11:16 Subjective: Patient states shes feeling weak and short of breath. She had an episode of -: chest pain at 6am this morning, sharp and lasting an hour. It settled on -: its own. She was afraid to bother anyone therefore did not tell her nurse. She is pain free now. Reports feeling weak and lightheaded. Has been up to bedside commode. Denies any fevers or chills. Had a headache last night that resolved with Tylenol. No n/v. Eating without difficulty. - Objective Resuscitation Status - Order Detail: 10/13/18 12:22 Resuscitation Status Routine Co-Sign Provider: Resuscitation Status: FULL: Full Resuscitation Vital Signs & Weight: Vital Signs (12 hours) Temp Pulse Resp BP BP BP Pulse Ox 10/15/18 08:38 84 180/85 H 10/15/18 07:26 98.1 F 84 20 180/85 H 98 10/15/18 03:11 98.3 F 108 H 18 145/67 H 99 10/14/18 23:57 99.4 F 100 20 139/64 97 Weight Weight 157 lb 14.4 oz I&O: 10/14/18 10/15/18 10/16/18 06:59 06:59 06:59 Intake Total 625 890 Output Total 400 Balance 625 490 Result Diagrams: 10/15/18 05:28 10/15/18 05:28 Additional Labs: Accuchecks 10/15/18 10/14/18 10/14/18 06:06 20:52 16:37 POC Glucose 99 202 H 188 H Phys Exam - Physical Examination Constitutional: NAD Appears fatigued. HEENT: PERRLA, sclera anicteric, oral pharynx no lesions Neck: no nodes, no JVD, supple, full ROM Respiratory: wheezing present shallow breaths with expiratory wheezing Cardiovascular: RRR murmur (known moderate ) Gastrointestinal: soft, non-tender, no distention, positive bowel sounds Musculoskeletal: no edema, pulses present Neurological: non-focal, normal sensation, moves all 4 limbs Psychiatric: normal affect, A&O x 3 Skin: no rash Dx/Plan (1) Chest pain Code(s): R07.9 - CHEST PAIN, UNSPECIFIED Status: Acute Plan: Recurring episode of chest pain this am. Repeat EKG. Troponins. For cardiology review. (2) CHF exacerbation Code(s): I50.9 - HEART FAILURE, UNSPECIFIED Status: Acute Plan: - Patient with mild CHF/edema on initial CXR - Started on Lasix 40 mg PO, repeat CXR showed pulmonary congestion. - Patient with SOB. Given additional dose of IV Lasix 40 mg yesterday PM. - Seen and cleared by Dr. Blair, however advised to keep patient overnight given tachycardia (100s to 130s). EKG: Sinus tach HR 106. - Echo was cancelled by [facility] yesterday per Dr. Blair. Recent Echo in 2018 with moderate . (3) Chronic obstructive asthma with exacerbation Code(s): J44.1 - CHRONIC OBSTRUCTIVE PULMONARY DISEASE W (ACUTE) EXACERBATION; J45.901 - UNSPECIFIED ASTHMA WITH (ACUTE) EXACERBATION Status: Acute Plan: Patient improved with Prednisone 40 mg PO daily and Duo nebs Q4H scheduled. Cleared by cardiology and due to persisting tachycardia, prednisone decreased to 20 mg PO daily and duonebs moved to PRN. She has not been receiving them but wheezing again. - ABG. PRN O2 which she uses at home. Continuous O2 sat monitoring. - Duo nebs scheduled Q6H. Continue oral abx. (no evidence of pneumonia on CXR, afebrile, WCC normal). (4) CHF (congestive heart failure) Code(s): I50.9 - HEART FAILURE, UNSPECIFIED Status: Chronic (5) Acute renal failure superimposed on stage 4 chronic kidney disease Code(s): N17.9 - ACUTE KIDNEY FAILURE, UNSPECIFIED; N18.4 - CHRONIC KIDNEY DISEASE, STAGE 4 (SEVERE) Status: Chronic Comment: stable, albumin and lasix (6) DM2 (diabetes mellitus, type 2) Status: Chronic Comment: controlled off meds currently (7) HTN (hypertension) Code(s): I10 - ESSENTIAL (PRIMARY) HYPERTENSION Status: Chronic Comment: moderate elevations - Plan * .
[2018-10-15 14:04] LABS: Actual Bicarbonate (HCO3a) 20.8 mEq/L (22-28); Analyzer IN Cardio OR; CO2 Tension 36.7 mmHg (35.0-45.0); Calcium, Ionized 1.21 mmol/L (1.12-1.30); Carboxyhemoglobin (COHb) 0.2 gm% (0.0-3.0); Hemoglobin (Hb) 10.1 g/dL (12.0-16.0); O2 Tension (PaO2) 83.9 mmHg (> 60.0); Potassium - ABG Lab 4.38 mmol/L (3.70-5.30); pH, Arterial 7.37 (7.35-7.45)
[2018-10-15 14:05] LABS: ALV-art Gradient 19.955 (0-20); Puncture Site LR
--- NOTE | 2018-10-15 14:45 | NM ---
NUCLEAR MEDICINE LUNG VENTILATORY AND PERFUSION EVALUATION INDICATION: Shortness of breath, chest pain, elevated d-dimer, history of COPD, CHF and renal failure Radiopharmaceutical: Ventilation: 15 mCi xenon-133 mCi xenon-133 inhaled. Perfusion: 6 mCi of technetium 99m MAA IV mCi technetium 99m MAA IV. COMPARISON: Chest radiograph dated 10/14/2018 at 1:32 PM FINDINGS: Ventilation: The ventilatory examination was unsuccessful due to patient's inability to achieve a hong p breath and inhale completely. Perfusion: There are patchy areas of subsegmental perfusion defects within the right and left lung. T he cardiac silhouette obscures portions of the lingula and left lower lobe Mismatch: Cannot be assessed Additional findings: None. IMPRESSION: Patchy areas of subsegmental perfusion abnormalities involving the right and left lung ar e nonspecific can be seen with air trapping or small subsegmental pulmonary emboli. Ventilatory examination could not be performed due to patient's inability to perform breath-hold.
--- NOTE | 2018-10-15 16:06 | ULT ---
EXAM: Bilateral lower extremity venous duplex: Deep veins evaluated with color Doppler, spectral analysis, and compression. INDICATIONS: Bilateral lower extremity pain and edema. FINDINGS: Deep veins interrogated include common femoral vein, femoral vein, popliteal vein, and post erior tibial vein. These veins show normal compression and blood flow. No evidence of DVT. IMPRESSION: Negative Bilateral venous duplex exam.
[2018-10-15] MEDS: Nicotine 7 MG PATCH TD SCH (17:07)
[2018-10-15] MEDS: Rosuvastatin 20 MG TAB PO SCH (20:47)
[2018-10-15] MEDS ORDERED: Famotidine 20 MG TAB PO SCH (21:00)
[2018-10-16 06:14] LABS: #Basophils 0.1 thou/uL (0.0-0.2); #Lymphocytes 1.7 thou/uL (1.20-3.40); #Monocytes 1.2 thou/uL (0.11-0.59); #Neutrophils 6.1 thou/uL (1.40-6.50); %Basophils 0.7 % (0.0-1.0); %Eosinophils 0.4 % (0.0-10.0); %Lymphocytes 18.7 % (21.0-51.0); %Monocytes 13.1 % (0.0-10.0); %Neutrophils 67.1 % (42.0-75.0); Hemoglobin 8.1 g/dL (12.0-16.0); Mean Corpuscular HGB CONC 30.3 g/dL (32.0-36.0); Mean Corpuscular Hemoglobin 27.2 pg (27.0-31.0); Mean Corpuscular Volume 89.6 fL (78.0-98.0); Mean Platelet Volume 8.2 fL (7.4-10.4); Platelet Count 192 thou/uL (130-400); RBC Distribution Width 16.8 % (11.5-14.5); Red Blood Cell (RBC) Count 2.97 mill/uL (4.20-5.40); White Blood Cell (WBC) Count 9.1 thou/uL (4.8-10.8)
[2018-10-16] MEDS: Levothyroxine Sodium 75 MCG TAB PO SCH (06:21)
[2018-10-16 06:34] LABS: Anion Gap 12 mmol/L (10-20); BUN (Urea Nitrogen) 61 mg/dL (9.8-20.1); Calc. Creatinine Clearance 17 mL/min (70-130); Calcium 9.6 mg/dL (7.8-10.44); Carbon Dioxide 23 mmol/L (23-31); Chloride 108 mmol/L (98-107); Estimated GFR-MDRD 20; Glucose 80 mg/dL (83-110); Potassium 4.2 mmol/L (3.5-5.1); Sodium 139 mmol/L (136-145)
[2018-10-16] MEDS: Furosemide 40 MG TAB PO SCH (07:58)
[2018-10-16] MEDS: Alogliptin 6.25 MG TAB PO SCH (08:00)
[2018-10-16] MEDS: predniSONE 20 MG TAB PO SCH (08:00)
[2018-10-16] MEDS: hydrALAZINE 25 MG TAB PO SCH ×2 (08:00→15:45)
[2018-10-16] MEDS: Calcitriol 0.25 MCG CAP PO SCH (08:00)
[2018-10-16] MEDS: Doxycycline 100 MG CAP PO SCH (08:00)
--- NOTE | 2018-10-16 10:41 | PRG ---
DATE OF SERVICE: 10/16/2018 SUBJECTIVE: Ms. Howard is an 88-year-old black female with known history of chronic renal failure. She is followed up by the Renal Service for her acute kidney injury. The shortness of breath is multifactorial-COPD exacerbation/mild CHF. Please note, this patient has also underlying aortic stenosis. She has been having still intermittent shortness of breath. This morning, she remains asymptomatic. She denies any chest pain or shortness of breath. Doppler of the lower extremity was done, which showed no DVT. V/Q scan was done on October 15, 2018, and it shows patchy subsegmental perfusion involving the right and left lung and said to be nonspecific and could be seen with air trapping and small subsegmental pulmonary embolism. The ventilatory examination was not done. No other complaints today. OBJECTIVE: VITAL SIGNS: Blood pressure is 177/76, heart rate 77, respiratory rate 18, temperature 98.4, and pulse ox 98%. GENERAL: Awake, alert, comfortable, not in overt distress. SKIN: Adequate turgor. HEENT: She has a slightly pale conjunctivae. Anicteric sclerae. NECK: No neck mass. No carotid bruits. No JVD. CHEST: No deformities. LUNGS: Clear breath sounds. HEART: Normal sinus rhythm. No murmur. No gallops. No rubs. ABDOMEN: Globular, soft, nontender. No masses. EXTREMITIES: No edema. No deformities. MEDICATIONS: Medications of October 16, 2018, reviewed. LABORATORY DATA: Laboratories of October 16, 2018, white count 9.1, hemoglobin 8.1. Sodium 139, potassium 4.2, chloride 108, carbon dioxide 23, BUN 61, creatinine 2.78, glucose 80, calcium 9.6. ASSESSMENT AND PLAN: 1. Shortness of breath-stable. Multifactorial etiology-chronic obstructive pulmonary disease exacerbation/mild congestive heart failure. Currently, on a diuretic regimen. Continue neb treatment. V/Q scan was not definitive-of note doppler of the lower extremities was negative for any deep venous thrombosis. 2. Chronic renal failure from underlying diabetic nephropathy. 3. Acute kidney injury. This is from hemodynamically mediated dysfunction. Tolerating current diuretic regimen. There is no indication for any dialysis with this patient. 4. Anemia. We have started this patient on Epogen at 7500 units subcutaneously weekly. 5. Continue current management. Job ID: [id number]
--- NOTE | 2018-10-16 11:01 | PRG ---
DATE OF SERVICE: 10/15/2018 TIME OF VISIT: 12:40 p.m. SUBJECTIVE: Ms. Howard is stable. She has no new complaints today. Overnight, she did have some nonsustained ventricular tachycardia on telemetry. The nurse also mentioned she continues to have chronic shortness of breath. A D-dimer was drawn, it was elevated at 14. Further workup of that is pending. PHYSICAL EXAMINATION: GENERAL: The patient is alert, awake, and oriented x3. NEUROLOGIC: As above. VITAL SIGNS: Reviewed and stable. The patient was . Weight is 157 pounds. CHEST: Decreased breath sounds bilaterally. No wheezing or rhonchi. CARDIOVASCULAR: Regular rate and rhythm. ABDOMEN: Soft. EXTREMITIES: No cyanosis or edema. LABORATORY DATA: Reviewed. Of note, hemoglobin 8.3, hematocrit 28.7. CMP shows BUN 55, creatinine 2.82 which is relatively stable. IMPRESSION: 1. Shortness of breath. 2. Chronic obstructive pulmonary disease. 3. Elevated D-dimer. 4. Nonsustained ventricular tachycardia. 5. Chronic kidney disease. 6. Chronic anemia. At this time, I have made no adjustments to her medications. Regarding her nonsustained ventricular tachycardia, she had a recent echocardiogram which showed normal EF. She has not had a recent stress test. I am hesitant to do so with hemoglobin of 8.3 and creatinine of 2.82 given the fact that she will be high risk for further angiogram if her stress test was abnormal. She could benefit from a beta ajit. She has been tachycardic in the last few hours here at 100 to 120. Of note, there are multiple EKG tracings upon admission showing a pulse rate of 50 to 51 beats per minute. Nurses mentioned V/Q scan being ordered. I will await and reviewed the V/Q scan results prior to making further recommendations regarding the V/Q. Job ID: [id number]
[2018-10-16] MEDS ORDERED: Metoprolol Tartrate 25 MG TAB PO SCH (12:00)
--- NOTE | 2018-10-16 13:02 | DIS ---
DATE OF ADMISSION: 10/15/2018 DATE OF DISCHARGE: 10/16/2018 DISCHARGE DIAGNOSES: 1. Acute on chronic diastolic congestive heart failure with preserved ejection fraction of 55%. 2. Chronic obstructive pulmonary disease with exacerbation, improved. 3. Tobacco abuse ongoing. 4. Chronic kidney disease, stage 4. 5. Hypertension, stable. 6. Sinus tachycardia, improved. 7. Chronic normocytic anemia. CONSULTATIONS: 1. Dr. Blair with Cardiology Service. 2. Dr. Ferrell with Nephrology Service. PERTINENT LABORATORY AND X-RAY FINDINGS: Creatinine ranged between 2.78 to 3.01. Estimated GFR ranged between 18 to 20. BNP 496. LFTs within normal limits. Magnesium 1.9. CBC showed hemoglobin ranged between 8.1 to 8.5, MCV 90. Portable chest x-ray dated 10/13/2018, showed bilateral pulmonary edema. Portable chest x-ray dated 10/14/2018, showed mild pulmonary vascular congestion. Ventilation perfusion study dated 10/15/2018 showed subsegmental perfusion abnormalities of the right and left lung ceron. Nonspecific in nature likely due to chronic obstructive pulmonary disease. Bilateral lower extremity venous Doppler study dated 10/15/2018, showed no evidence for DVT. HOSPITAL COURSE: The patient was initially admitted for increasing shortness of breath in the context of known chronic obstructive pulmonary disease and ongoing tobacco abuse as well as chest imaging showing evidence of bilateral pulmonary edema and concern for congestive heart failure exacerbation. 2D transthoracic echocardiogram dated 06/28/2018, showed preserved ejection fraction of 55% to 60% with diastolic dysfunction. The patient received IV Lasix and was evaluated by the Cardiology Service. Current recommendations are for medical management with volume removal and general supportive care. The patient was initially noted with bradycardia, at which point, metoprolol was held at the time of admission. The patient developed a sinus tachycardia, at which point, metoprolol was reinstituted with overall improvement in heart rate trend. The patient received general pulmonary supportive management in regard to bronchodilator therapy and prednisone. The patient's overall respiratory status stabilized and the patient was cautioned regarding ongoing tobacco use. Overall, the patient remained clinically stable during the hospital course, tolerating regular oral intake. I have examined the patient at the time of discharge and discussed followup instructions. The patient verbalized understanding and in agreement and ready for discharge on 10/16/2018. DISCHARGE MEDICATIONS: 1. Synthroid 75 mcg p.o. daily. 2. Omeprazole 20 mg p.o. daily. 3. Crestor 40 mg p.o. at bedtime. 4. Tramadol 50 mg p.o. q.6 hours p.r.n. pain. 5. Calcitriol 0.25 mcg p.o. daily. 6. Vitamin D3 of 1000 units p.o. daily. 7. Lasix 40 mg p.o. daily. 8. Hydralazine 50 mg p.o. t.i.d. 9. Metoprolol tartrate 12.5 mg p.o. b.i.d. 10. Prednisone 20 mg 1 tablet p.o. daily x3 days, followed by half a tab p.o. daily x3 days. FOLLOWUP: The patient may follow up with her primary care provider, Dr. Denver Gutierrez within 7 days of discharge. The patient will follow up with Dr. Darion Escobar with Cardiology Service in 2 to 3 weeks after discharge. The patient may follow up with Dr. Ferrell with Nephrology Service. CONDITION ON DISCHARGE: Fair. ACTIVITY: Ad-bart. SPECIAL INSTRUCTIONS: The patient will receive home health services with [facility]. DIET: Heart healthy. CODE STATUS: Full. DISPOSITION: Home on 10/16/2018. TIME SPENT: Total time preparing and coordinating discharge is 32 minutes. Job ID: [id number]
--- NOTE | 2018-10-16 14:15 | PDOC.CTH ---
Cardiology Progress Note - Subjective No complaints. Still with tachycardia. Asymptomatic. - Objective Vital Signs Temp Pulse Pulse Pulse Pulse Resp BP 10/16/18 13:13 101 H 16 10/16/18 11:02 98.3 F 100 18 10/16/18 10:42 10/16/18 09:58 97 122 H 108 H 134/58 L 10/16/18 07:25 65 16 10/16/18 07:16 98.4 F 77 18 10/16/18 04:00 98.6 F 75 17 BP BP BP BP Pulse Ox Pulse Ox Pulse Ox 10/16/18 13:13 98 10/16/18 11:02 163/75 H 98 10/16/18 10:42 147/70 H 10/16/18 09:58 195/86 H 181/79 H 97 99 10/16/18 07:25 95 10/16/18 07:16 177/76 H 98 10/16/18 04:00 145/64 H 98 Pulse Ox 10/16/18 13:13 10/16/18 11:02 10/16/18 10:42 10/16/18 09:58 99 10/16/18 07:25 10/16/18 07:16 10/16/18 04:00 Weight 161 lb 4.8 oz 10/15/18 10/16/18 10/17/18 06:59 06:59 06:59 Intake Total 890 1020 Output Total 400 2850 Balance 490 -1830 - Physical Examination General/Neuro: alert & oriented x3 Neck: no JVD present Lungs: CTA Heart: other: (Regular) Abdomen: NT/ND - Telemetry Telemetry Rhythm: ST; NSR - Labs Result Diagrams: 10/16/18 05:49 10/16/18 05:49 Troponin/CKMB Troponin I 0.015 ng/mL (< 0.028) 10/13/18 01:21 - Assessment/Plan 1. Acute on chronic diastolic heart failure. 2. COPD. 3. NSVT 4. Tachycardia Euvolemic. Low dose metoprolol added. Patient has been discharged by primary team. F/U in office in two weeks.
[2018-10-16 15:45] VITALS: BP 167/77; TEMP 98.7
[2018-10-16] MEDS: Nicotine 7 MG PATCH TD SCH (15:58)
--- NOTE | 2018-10-17 16:58 | EKG ---
Test Reason : Blood Pressure : / mmHG Vent. Rate : 106 BPM Atrial Rate : 106 BPM P-R Int : 160 ms QRS Dur : 086 ms QT Int : 354 ms P-R-T Axes : 066 -47 078 degrees QTc Int : 470 ms Sinus tachycardia Left anterior fascicular block Moderate voltage criteria for LVH, may be normal variant Abnormal ECG Confirmed by JENNIFER CASTAÑEDA ([id number]) on 10/17/2018 4:58:21 PM Referred By: MARCELLO Confirmed By:JENNIFER CASTAÑEDA
--- NOTE | 2018-10-17 17:06 | EKG ---
Test Reason : Blood Pressure : / mmHG Vent. Rate : 095 BPM Atrial Rate : 095 BPM P-R Int : 160 ms QRS Dur : 098 ms QT Int : 368 ms P-R-T Axes : 050 -42 091 degrees QTc Int : 462 ms Sinus rhythm with occasional Premature ventricular complexes Possible Left atrial enlargement Left axis deviation Moderate voltage criteria for LVH, may be normal variant T wave abnormality, consider lateral ischemia Abnormal ECG Confirmed by JENNIFER CASTAÑEDA ([id number]) on 10/17/2018 5:06:41 PM Referred By: MARCELLO Confirmed By:JENNIFER CASTAÑEDA
== END 2018-10-16 16:40 | disposition home health service (06) | DRG 291 ==
LOC: ERS 01:05 → ERHOLD 05:40 → 2SW 15:35 → OBSVTOIN 10-15 18:29 → 2NO 10-15 20:15
PROVIDERS: ADMIT Family Medicine; ATTEND Family Medicine
DX: I13.0 Hypertensive heart and chronic kidney disease with heart failure and stage 1 through stage 4 chronic kidney disease, or unspecified chronic kidney disease (principal); I50.33 Acute on chronic diastolic (congestive) heart failure; J44.1 Chronic obstructive pulmonary disease with (acute) exacerbation; N25.81 Secondary hyperparathyroidism of renal origin; N17.9 Acute kidney failure, unspecified; N18.4 Chronic kidney disease, stage 4 (severe); I47.2 Ventricular tachycardia; F17.210 Nicotine dependence, cigarettes, uncomplicated; E03.9 Hypothyroidism, unspecified; E11.22 Type 2 diabetes mellitus with diabetic chronic kidney disease; E11.21 Type 2 diabetes mellitus with diabetic nephropathy; E78.5 Hyperlipidemia, unspecified; D63.1 Anemia in chronic kidney disease; K21.9 Gastro-esophageal reflux disease without esophagitis; E87.5 Hyperkalemia; I35.2 Nonrheumatic aortic (valve) stenosis with insufficiency; Z90.710 Acquired absence of both cervix and uterus; Z99.81 Dependence on supplemental oxygen; Z79.4 Long term (current) use of insulin; Z79.899 Other long term (current) drug therapy
CPT/HCPCS: 36415; 36416; 71045; 71046; 78582; 80048; 80053; 81001; 82805; 83605; 83735; 83880; 84484; 85025; 85379; 93005; 93010; 93970; 94640; 96374; 96375; A9540; A9558; J1940; J2930; J7512; J7620; Q5105; S0028

== ENCOUNTER 2018-12-27 12:16 | Emergency (ER) | payer MEDICARE, BC ==
--- NOTE | 2018-12-27 13:00 | RAD ---
Right hand 3 views: 12/27/2018 COMPARISON: None HISTORY: Right hand pain FINDINGS: No fracture or dislocation. There is osteopenia. There is prominent degenerative change at the first carpometacarpal joint with joint space narrowing, subchondral sclerosis, and osteophyte formation. There is significant degenerative change at the first carpometacarpal joint as well. IMPRESSION: Osteopenia and prominent degenerative change with no acute fracture or dislocation seen.
[2018-12-27] MEDS ORDERED: Acetaminophen 500 MG TAB ONE (13:28)
== END 2018-12-27 13:38 | disposition home or self-care (01) ==
LOC: ERS 12:16
DX: M10.9 Gout, unspecified (principal); E03.9 Hypothyroidism, unspecified; J44.9 Chronic obstructive pulmonary disease, unspecified; E11.22 Type 2 diabetes mellitus with diabetic chronic kidney disease; I12.0 Hypertensive chronic kidney disease with stage 5 chronic kidney disease or end stage renal disease; F17.210 Nicotine dependence, cigarettes, uncomplicated; Z79.891 Long term (current) use of opiate analgesic; Z79.899 Other long term (current) drug therapy
CPT/HCPCS: 36415; 84550; 93005

== ENCOUNTER 2019-01-12 09:27 | Outpatient (CLI) | payer MEDICARE, BC ==
--- NOTE | 2019-01-12 09:55 | RAD ---
EXAM: Left hip 2 views: HISTORY: Left hip pain COMPARISON: None FINDINGS: Vascular calcifications. Degenerative changes. No acute fracture or dislocation or other significant acute osseous abnormality. IMPRESSION: No significant acute process.
--- NOTE | 2019-01-12 09:56 | RAD ---
EXAM: Right hip 2 views: HISTORY: Right hip pain COMPARISON: 09/13/2015 FINDINGS: Bony demineralization with some arthrosis of the right hip joint. Minimal vascular calcifications. Degenerative changes. No acute fracture or dislocation or other significant acute osseous abnormality. IMPRESSION: No significant acute process.
== END 2019-01-12 09:28 | disposition home or self-care (01) ==
LOC: BICRAD 09:27
PROVIDERS: ATTEND Family Medicine
DX: M25.551 Pain in right hip (principal); M25.552 Pain in left hip

== ENCOUNTER 2019-01-16 01:52 | Inpatient (IN) | payer MEDICARE, BC ==
[2019-01-16 02:44] LABS: #Lymphocytes 1.5 thou/uL (1.20-3.40); #Monocytes 0.9 thou/uL (0.11-0.59); %Basophils 0.1 % (0.0-1.0); %Eosinophils 0.1 % (0.0-10.0); %Monocytes 7.2 % (0.0-10.0); %Neutrophils 80.7 % (42.0-75.0); Hemoglobin 9.9 g/dL (12.0-16.0); Mean Corpuscular HGB CONC 31.5 g/dL (32.0-36.0); Mean Corpuscular Hemoglobin 25.4 pg (27.0-31.0); Mean Corpuscular Volume 80.4 fL (78.0-98.0); Mean Platelet Volume 10.6 fL (7.4-10.4); Platelet Count 194 thou/uL (130-400); RBC Distribution Width 15.8 % (11.5-14.5); Red Blood Cell (RBC) Count 3.91 mill/uL (4.20-5.40); White Blood Cell (WBC) Count 12.4 thou/uL (4.8-10.8)
[2019-01-16] MEDS ORDERED: Ondansetron PF 4 MG/2 ML Vial ONE (02:52)
[2019-01-16] MEDS ORDERED: Morphine 4 MG/ML VIAL ONE (02:52)
[2019-01-16 02:57] LABS: ALT (SGPT) 29 U/L (8-55); AST (SGOT) 21 U/L (5-34); Albumin 3.9 g/dL (3.4-4.8); Alkaline Phosphatase 86 U/L (40-110); Anion Gap 14 mmol/L (10-20); BUN (Urea Nitrogen) 72 mg/dL (9.8-20.1); Bilirubin, Total 0.4 mg/dL (0.2-1.2); CK (CPK) 51 U/L (29-168); Calc. Creatinine Clearance 0 mL/min (70-130); Calcium 10.3 mg/dL (7.8-10.44); Carbon Dioxide 25 mmol/L (23-31); Chloride 104 mmol/L (98-107); Estimated GFR-MDRD 21; Globulin 3.4 g/dL (2.4-3.5); Glucose 135 mg/dL (83-110); Lipase 29 U/L (8-78); Potassium 4.1 mmol/L (3.5-5.1); Protein, Total 7.3 g/dL (6.0-8.3); Sodium 139 mmol/L (136-145)
[2019-01-16 03:20] LABS: Bacteria/HPF None Seen HPF (None Seen); Bilirubin Negative (Negative); Blood, Urine Negative (Negative); Clarity Clear (Clear); Glucose, Urine (Dipstick) Normal (Negative); Leukocyte Negative Leu/uL (Negative); Nitrite Negative (Negative); Protein, Urine (Dipstick) 30 mg/dL (Neg-Trace); RBC/HPF 0-3 HPF (0-3); Squamous Epithelial 0-3 HPF (0-3); Urobilinogen Normal mg/dL (Less than 2); WBC/HPF 0-3 HPF (0-3)
[2019-01-16] MEDS ORDERED: Piperacillin/Tazobactam 4.5 GM VIAL ONE (04:30)
[2019-01-16 06:34] LABS: Lactic Acid 2.2 mmol/L (0.5-2.2)
[2019-01-16] MEDS ORDERED: Acetaminophen 325 MG TAB PO PRN (07:09)
[2019-01-16] MEDS ORDERED: Ondansetron ODT 4 MG TAB SL PRN (07:09)
[2019-01-16] MEDS ORDERED: Ondansetron PF 4 MG/2 ML Vial IVP PRN (07:09)
[2019-01-16 07:17] VITALS: BMI 28.3
[2019-01-16] MEDS: Dextrose 5 %-0.45 % NaCl 1,000 ML IV SCH ×2 (08:50→22:44)
[2019-01-16] MEDS: Sodium Chloride 0.9% 1,000 ML IV SCH (08:51)
[2019-01-16] MEDS: metroNIDAZOLE 500 MG in Premix Bag 1 BAG IVPB SCH ×3 (08:51→23:05)
--- NOTE | 2019-01-16 08:54 | CT ---
PRELIMINARY REPORT/[facility]/EMERGENCY AFTER HOURS PROCEDURE PROCEDURE INFORMATION: Exam: CT Abdomen And Pelvis Without Contrast Exam date and time: 01/16/2019 4:09 AM Clinical history: 89 years old, female; Patient HX: 89 yo F with pmh dm, HTN, hypothyroidism, gout pr esents for "unable to have a bowel movement. " patient reports it has been 3 days since she stooled. She took milk of magnesia which did not help. She reports vomiting x3 that was white. Reports muscle pain in her legs. Denies headache/fever/chills. Reports lower abdominal pain. TECHNIQUE: Imaging protocol: Computed tomography of the abdomen and pelvis without contrast. COMPARISON: No relevant prior studies available. FINDINGS: Limitations: Study is limited by the absence of contrast. Heart: Mild/moderate cardiac enlargement. Liver: Normal. No mass. Gallbladder and bile ducts: Gallbladder distention. Mild intra-and extrahepatic biliary duct dilatati on. Pancreas: Normal. No ductal dilation. Spleen: Normal. No splenomegaly. Adrenals: Left adrenal 3 cm adrenal myelolipoma calcifications and macroscopic fat. Kidneys and ureters: Vague low attenuating area in the left kidney measuring 2.8 cm without meeting c riteria for a simple cyst. Consider followup with ultrasound or contrast images. Mild left renal mey ecting system dilatation. Stomach and bowel: Excess stool in the colon and especially the rectum with some minimal adjacent str anding, question stercoral colitis. Moderate diverticulosis coli without acute inflammation. Gastric wall thickening and distention, correlate for gastritis, or delayed emptying. Appendix: Appendectomy. Intraperitoneal space: Unremarkable. No free air. No significant fluid collection. Vasculature: Pronounced aortic atherosclerosis with suspected at least moderate distal aortic stenosi s. Phlebolith versus 3 mm calculus in the left ureter as it abuts the iliac branches on series 2 imag e 55. Lymph nodes: Unremarkable. No enlarged lymph nodes. Bladder: Unremarkable as visualized. Reproductive: Unremarkable as visualized. Bones/joints: Severe lumbar spondylosis with multilevel severe spinal stenosis. Chronic pubic rami fractures are healed. Bones are demineralized. Soft tissues: Tiny right inguinal/femoral fat protruding hernia. IMPRESSION: 1. Excess stool in the colon and especially the rectum with some minimal adjacent stranding, question stercoral colitis. 2. Moderate diverticulosis coli without acute inflammation. 3. Severe lumbar spondylosis with multilevel severe spinal stenosis. 4. Pronounced aortic atherosclerosis with suspected at least moderate distal aortic stenosis. 5. Gastric wall thickening and distention, correlate for gastritis, or delayed emptying. 6. Left adrenal 3 cm adrenal myelolipoma calcifications and macroscopic fat. 7. Vague low attenuating area in the left kidney measuring 2.8 cm without meeting criteria for a simp le cyst. Consider followup with ultrasound or contrast images. 8. Phlebolith versus 3 mm calculus in the left ureter as it abuts the iliac branches on series 2 imag e 55. Thank you for allowing us to participate in the care of your patient. Dictated and Authenticated by: Rudi Vu MD 01/16/2019 5:02 AM Central Time ([place] & [place]) FINAL REPORT CT ABDOMEN AND PELVIS WITHOUT CONTRAST: HISTORY: Unable to have a bowel movement. COMPARISON: 03/08/2018 FINDINGS: ABDOMEN: Limited evaluation due to lack of IV contrast. Grossly no solid organ abnormality. The heart is enlarged. No significant pericardial fluid. Stable hypodensity emanating from the left renal cortex, measuring 3 cm, compatible with a complex cy st. Bilaterally no obstructive uropathy. Mixed attenuation lesion associated with the left adrenal gland with areas of calcification, unchange d. There is evidence of microscopic fat. Bilaterally no obstructive uropathy. There is diverticulosis. There is a copious amount of fecal material in the rectum with fat stranding . Correlate for stercoral colitis. IMPRESSION: This report is in agreement with the preliminary report by C. Excessive stool, worrisome for stercoral colitis. Additional findings as detailed in the preliminary report by C. CODE QA POS: [facility]
[2019-01-16] MEDS ORDERED: Cefepime 1 GM in Sodium Chloride 0.9% 100 ML IVPB SCH ×2 (09:00→11:00)
--- NOTE | 2019-01-16 09:02 | CT ---
PRELIMINARY REPORT/[facility]/EMERGENCY AFTER HOURS PROCEDURE: PROCEDURE INFORMATION: Exam: CT Head Without Contrast Exam date and time: 01/16/2019 4:04 AM Clinical history: 89 years old, female; Patient HX: 89 yo F with pmh dm, HTN, hypothyroidism, gout pr esents for "unable to have a bowel movement. " patient reports it has been 3 days since she stooled. She took milk of magnesia which did not help. She reports vomiting x3 that was white. Reports muscle pain in her legs. Denies headache/fever/chills. Reports lower abdominal pain. Dizzines s TECHNIQUE: Imaging protocol: Computed tomography of the head without contrast. COMPARISON: No relevant prior studies available. FINDINGS: Brain: No midline shift, mass, fluid collection, or evidence of hemorrhage. Moderate chronic white ma tter disease and cerebral volume loss. Falx calcifications. Ventricles: Normal. No ventriculomegaly. Bones/joints: Mild incidental hyperostosis frontalis of the calvarium. Sinuses: Visualized sinuses are unremarkable. No fluid levels. Mastoid air cells: Visualized mastoid air cells are well aerated. Soft tissues: Left forehead protuberance with soft tissue density measuring 2.1 cm, question hematoma . Other findings: Mild motion artifact limited. IMPRESSION: Left forehead protuberance with soft tissue density measuring 2.1 cm, question hematoma. Thank you for allowing us to participate in the care of your patient. Dictated and Authenticated by: Rudi Vu MD 01/16/2019 4:49 AM Central Time ([place] & [place]) FINAL REPORT EMERGENT AFTER HOURS CT OF THE BRAIN WITHOUT CONTRAST: FINDINGS/IMPRESSION: I agree with the findings and impression given in the preliminary report per [facility] physician. No michel dence of acute intracranial abnormality. POS: [facility]
[2019-01-16] MEDS ORDERED: Mineral Oil ENEMA PR SCH (09:15)
[2019-01-16] MEDS ORDERED: Dextrose 50% Abboject 50 ML SYRINGE SLOW IVP PRN (09:28)
[2019-01-16] MEDS ORDERED: Dextrose 5% in Water 1,000 ML IV PRN (09:28)
[2019-01-16] MEDS ORDERED: HumaLOG 300 UNITS/3 ML VIAL SC PRN ×2 (09:28)
[2019-01-16] MEDS ORDERED: Piperacillin/Tazobactam 4.5 GM in Sodium Chloride 0.9% 100 ML IVPB SCH (10:30)
--- NOTE | 2019-01-16 10:55 | HP ---
PRIMARY CARE PHYSICIAN: Denver Gutierrez MD CHIEF COMPLAINT: Abdominal pain and constipation. HISTORY OF PRESENT ILLNESS: Ms. Howard is an 89-year-old female with past medical history of hypertension, diabetes mellitus type 2, hypothyroidism, gout, presents to the ED late last night due to unable to have a bowel movement over the last three days. She states that she has also become nauseous with 3 episodes of vomiting since . She states that she has been taking her home milk of magnesia, which has not helped. She then also stated that she had noticed the left lower quadrant abdominal pain began about Wednesday morning and progressively getting worse over the last few days. She also reports some pain and cramping in her legs and some generalized weakness. She had, however, denied any fever or chills; any headache, blurred vision, or dizziness; any chest pain, palpitations, or shortness of breath. In the ED, she underwent a CT abdomen and pelvis, which reveals an excess stool in colon and especially in the rectum with some adjacent straining, question for stercoral colitis, with moderate diverticulosis coli without acute inflammation noted with gastric wall thickening and distention for possible gastritis. She was treated with IV antibiotics including Zosyn and was given morphine and Zofran for her symptoms. Currently, the patient feels better; however, is still having the pain. She also reported having a small bowel movement earlier this morning. REVIEW OF SYSTEMS: All other systems reviewed and found to be negative unless mentioned in the HPI. PAST MEDICAL HISTORY: Hypertension, hypothyroidism, diabetes mellitus type 2, chronic obstructive pulmonary disease, chronic kidney disease. 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 PSYCHIATRIC HISTORY: None. SOCIAL HISTORY: The patient denies alcohol or illicit drug use. She is a current tobacco smoker. She smokes about 2 packs per week. KNOWN ALLERGIES: No known drug allergies. CURRENT HOME MEDICATIONS: 1. Calcitriol 0.25 mcg p.o. daily. 2. Furosemide 40 mg p.o. daily. 3. Hydralazine 50 mg p.o. t.i.d. 4. Levothyroxine 75 mcg p.o. daily. 5. Metoprolol 12.5 mg p.o. b.i.d. 6. Rosuvastatin 40 mg p.o. at bedtime. 7. Januvia 25 mg p.o. daily. 8. Tramadol 50 mg p.o. q.6 hours as needed for pain. PHYSICAL EXAMINATION: VITAL SIGNS: BP 124/74, pulse 85, respirations 14, temp 98.3, O2 saturation 99% on room air. GENERAL: The patient is awake, alert, and oriented x3. She is currently lying comfortably in bed and in no acute distress. HEENT: Atraumatic and normocephalic. Pupils are round and reactive to light. Extraocular muscles intact. Moist mucous membranes noted. Poor oral hygiene noted. NECK: Soft and supple. Trachea midline. CARDIOVASCULAR: Positive S1 and S2. Regular rate and rhythm. A 2/6 systolic murmur auscultated. RESPIRATORY: Clear to auscultation bilaterally. No wheezes, rales, rhonchi. ABDOMEN: Soft. Mild tenderness in the left lower quadrant with faint bowel sounds present. EXTREMITIES: Moves all extremities equal. Pedal and radial pulses 2+ bilaterally. No edema noted. NEUROLOGIC: Cranial nerves 2 through 12 grossly intact. No focal deficits noted. Speech intact and normal. Gait not assessed. SKIN: Warm, dry, and intact. No rashes. No ulceration noted. PSYCHIATRIC: Good mood and affect. LABORATORY DATA: WBC 12.4, RBC 3.91, hemoglobin 9.9, hematocrit 31.4, platelets 194. Sodium 139, potassium 4.1, anion gap 14, BUN 72, creatinine 2.61, estimated GFR 21, glucose 135. Lactic acid 2.8 down to 2.2. CK 51. Lipase 29. Urinalysis shows 30 proteins, otherwise unremarkable. DIAGNOSTIC IMAGING: CT abdomen and pelvis shows excess stool in the colon and especially in the rectum with some minimal adjacent stranding. Question for stercoral colitis. Moderate diverticulosis coli without acute inflammation. Severe lumbar spondylosis with multilevel severe spinal stenosis noted. Pronounced aortic atherosclerosis with suspected at least moderate distal right aortic stenosis, gastric wall thickening, and distention. Correlate for gastritis or delayed emptying. CT brain without contrast showed left forehead protuberance with soft tissue density measuring 2.1 cm, question hematoma. ASSESSMENT AND PLAN: 1. Constipation. The patient will be started on a bowel regimen at this time including Senokot, milk of magnesia, and enema. We will monitor the patient for any further bowel movements. At this time, we will monitor her symptoms closely. We will also order PT and OT and encourage increased activity. 2. Gastritis. 3. Questionable colitis. The patient was treated with IV antibiotics in the ED, and was started on IV cefepime and metronidazole, we will await blood cultures at this time and repeat CBC and BMP in the morning. Her lactic acid is trending down to 2.2. 4. Hypertension, currently stable. Monitor blood pressure and other vital signs closely and restart home medications. 5. Diabetes mellitus. Continue home regimen, started on insulin sliding scale with frequent Accu-Cheks. 6. Hypothyroidism. Continue home dose of levothyroxine. 7. Chronic kidney disease, currently at her baseline. She follows with Dr. Ferrell as outpatient. 8. History of chronic obstructive pulmonary disease, currently stable at this time. 9. Deep venous thrombosis and gastrointestinal prophylaxis. 10. Code status, full code. 11. Surrogate decision maker is her daughters, Abbey. DISPOSITION: Pending further workup and clinical findings. Job ID: [id number]
[2019-01-16] MEDS: Milk Of Magnesia 30 ML UDCUP PO PRN (12:27)
[2019-01-16] MEDS: hydrALAZINE 25 MG TAB PO SCH ×2 (16:01→22:34)
[2019-01-16] MEDS: Piperacillin/Tazobactam 2.25 GM in Sodium Chloride 0.9% 100 ML IVPB SCH (16:05)
[2019-01-16] MEDS ORDERED: Glycerin Adult Supp. (12 ct jar) PR PRN (18:45)
[2019-01-16] MEDS ORDERED: Rosuvastatin 20 MG TAB PO SCH (21:00)
[2019-01-16] MEDS: Metoprolol Tartrate 25 MG TAB PO SCH (22:35)
[2019-01-16] MEDS: Famotidine 20 MG TAB PO SCH (22:35)
[2019-01-16] MEDS: Senokot S 8.6-50 MG TAB PO SCH (22:35)
[2019-01-17 04:55] LABS: #Lymphocytes 1.3 thou/uL (1.20-3.40); #Monocytes 1.2 thou/uL (0.11-0.59); #Neutrophils 10.7 thou/uL (1.40-6.50); %Basophils 0.2 % (0.0-1.0); %Eosinophils 0.2 % (0.0-10.0); %Lymphocytes 9.6 % (21.0-51.0); %Monocytes 9.3 % (0.0-10.0); %Neutrophils 80.6 % (42.0-75.0); Hemoglobin 8.5 g/dL (12.0-16.0); Mean Corpuscular HGB CONC 31.2 g/dL (32.0-36.0); Mean Corpuscular Hemoglobin 25.9 pg (27.0-31.0); Mean Corpuscular Volume 82.9 fL (78.0-98.0); Mean Platelet Volume 10.5 fL (7.4-10.4); Platelet Count 164 thou/uL (130-400); RBC Distribution Width 15.8 % (11.5-14.5); Red Blood Cell (RBC) Count 3.29 mill/uL (4.20-5.40); White Blood Cell (WBC) Count 13.3 thou/uL (4.8-10.8)
[2019-01-17 05:11] LABS: Anion Gap 9 mmol/L (10-20); BUN (Urea Nitrogen) 48 mg/dL (9.8-20.1); Calc. Creatinine Clearance 21 mL/min (70-130); Calcium 9.2 mg/dL (7.8-10.44); Carbon Dioxide 25 mmol/L (23-31); Chloride 110 mmol/L (98-107); Estimated GFR-MDRD 26; Glucose 99 mg/dL (83-110); Potassium 4.6 mmol/L (3.5-5.1); Sodium 139 mmol/L (136-145)
[2019-01-17] MEDS: Levothyroxine Sodium 75 MCG TAB PO SCH (05:14)
[2019-01-17] MEDS: Piperacillin/Tazobactam 2.25 GM in Sodium Chloride 0.9% 100 ML IVPB SCH (05:14)
[2019-01-17] MEDS: Acetaminophen 325 MG TAB PO PRN ×2 (06:38→10:30)
[2019-01-17] MEDS ORDERED: Furosemide 40 MG TAB PO SCH (07:30)
[2019-01-17] MEDS: metroNIDAZOLE 500 MG in Premix Bag 1 BAG IVPB SCH (08:13)
[2019-01-17] MEDS: Calcitriol 0.25 MCG CAP PO SCH (08:20)
[2019-01-17] MEDS: Senokot S 8.6-50 MG TAB PO SCH ×2 (08:21→21:31)
[2019-01-17] MEDS: Metoprolol Tartrate 25 MG TAB PO SCH ×2 (08:21→21:31)
[2019-01-17] MEDS: Enoxaparin Sodium 30 MG/0.3 ML SYRINGE SC SCH (08:28)
[2019-01-17] MEDS: hydrALAZINE 25 MG TAB PO SCH ×3 (08:35→21:31)
[2019-01-17] MEDS: Alogliptin 6.25 MG TAB PO SCH (10:25)
[2019-01-17] MEDS: Milk Of Magnesia 30 ML UDCUP PO PRN (10:39)
[2019-01-17] MEDS ORDERED: Cefepime 0.5 GM, Admixture Fee 1 EACH in Sodium Chloride 0.9% 100 ML IVPB SCH (11:00)
[2019-01-17] MEDS ORDERED: Bisacodyl 10 MG SUPP PR PRN (12:36)
--- NOTE | 2019-01-17 12:38 | PDOC.HOSPP ---
- Subjective Encounter Date: 01/17/19 Encounter Time: 11:15 Subjective: still has lower quadrant colic says she didn't pass much stool with enema/digital evacuation attempts - Objective Vital Signs & Weight: Vital Signs (12 hours) Temp Pulse Resp BP BP BP Pulse Ox 01/17/19 08:35 76 145/74 H 01/17/19 07:25 97.7 F 76 14 145/74 H 94 L 01/17/19 03:38 98.8 F 74 16 136/76 95 Weight Weight 165 lb I&O: 01/16/19 01/17/19 01/18/19 06:59 06:59 06:59 Intake Total 3040 Balance 3040 Result Diagrams: 01/17/19 04:06 01/17/19 04:06 Additional Labs: Accuchecks 01/17/19 01/17/19 01/16/19 12:03 05:55 21:57 POC Glucose 117 H 101 139 H 01/16/19 01/16/19 15:46 11:38 POC Glucose 122 H 146 H Hospitalist ROS - Medication Medications: Active Medications Generic Name Dose Route Start Last Admin Trade Name Freq PRN Reason Stop Dose Admin Acetaminophen 650 mg 01/17/19 05:38 01/17/19 10:30 Tylenol PO 650 mg Q4H PRN Administration Headache/Fever or Pain Alogliptin Benzoate 6.25 mg 01/17/19 09:00 01/17/19 10:25 Alogliptin PO 6.25 mg DAILY ANNA Administration Calcitriol 0.25 mcg 01/17/19 09:00 01/17/19 08:20 Rocaltrol PO 0.25 mcg DAILY ANNA Administration Enoxaparin Sodium 30 mg 01/17/19 09:00 01/17/19 08:28 Lovenox SC 30 mg 0900 ANNA Administration Famotidine 20 mg 01/16/19 21:00 01/16/19 22:35 Pepcid PO 20 mg Q24HR ANNA Administration Furosemide 40 mg 01/17/19 07:30 01/17/19 06:38 Lasix PO 40 mg DAILY-AC ANNA Administration Glycerin 1 each 01/16/19 18:45 01/16/19 19:18 Adult Glycerin [place] 1 each DAILYPRN PRN Administration Constipation Hydralazine HCl 50 mg 01/16/19 15:00 01/17/19 08:35 Apresoline PO 50 mg TID ANNA Administration Metronidazole 500 mg/ Device 100 mls @ 100 mls/hr 01/16/19 08:00 01/17/19 08: 13 IVPB 100 mls 0800,1600,2359 ANNA Administration Dextrose/Sodium Chloride 1,000 mls @ 75 mls/hr 01/16/19 06:15 01/16/19 22:44 D5 1/2 Ns IV 1,000 mls .[id number] ANNA Administration Piperacillin Sod/Tazobactam 100 mls @ 200 mls/hr 01/16/19 17:00 01/17/19 05: 14 Sod 2.25 gm/ Sodium Chloride IVPB 100 mls 0500,1700 ANNA Administration Cefepime HCl 0.5 gm/ 100 mls @ 200 mls/hr 01/17/19 11:00 01/17/19 11:44 Miscellaneous Medication 1 IVPB 100 mls each/ Sodium Chloride 1100 ANNA Administration Levothyroxine Sodium 75 mcg 01/17/19 06:00 01/17/19 05:14 Synthroid PO 75 mcg 0600 ANNA Administration Magnesium Hydroxide 30 ml 01/16/19 09:10 01/17/19 10:39 Milk Of Magnesium PO 30 ml DAILYPRN PRN Administration Constipation Metoprolol Tartrate 12.5 mg 01/16/19 21:00 01/17/19 08:21 Lopressor PO 12.5 mg BID ANNA Administration Senna/Docusate Sodium 1 tab 01/16/19 21:00 01/17/19 08:21 Senokot S PO 1 tab BID ANNA Administration - Exam General Appearance: NAD, awake alert Eye: PERRL, anicteric sclera ENT: no oropharyngeal lesions, moist mucosa Neck: supple, no JVD Heart: RRR, no murmur Respiratory: no wheezes, no rales Gastrointestinal: soft, non-distended, normal bowel sounds, no guarding, no rigidity Extremities: no cyanosis, 1+ LE edema Neurological: cranial nerve grossly intact, no focal deficits Psychiatric: normal affect, A&O x 3 Hosp A/P (1) Fecal impaction Code(s): K56.41 - FECAL IMPACTION Status: Acute (2) BIRDIE (acute kidney injury) Code(s): N17.9 - ACUTE KIDNEY FAILURE, UNSPECIFIED Status: Acute (3) CKD (chronic kidney disease) Code(s): N18.9 - CHRONIC KIDNEY DISEASE, UNSPECIFIED Status: Chronic Qualifiers: Chronic kidney disease stage: stage 3 (moderate) Qualified Code(s): N18.3 - Chronic kidney disease, stage 3 (moderate) (4) CHF (congestive heart failure) Code(s): I50.9 - HEART FAILURE, UNSPECIFIED Status: Chronic Qualifiers: Heart failure type: unspecified (5) DM2 (diabetes mellitus, type 2) Status: Chronic Qualifiers: Diabetes mellitus long term acute care registered nurse insulin use: without long term acute care registered nurse use Diabetes mellitus complication status: with kidney complications Diabetes mellitus complication detail: with chronic kidney disease Chronic kidney disease stage : stage 3 (moderate) Qualified Code(s): E11.22 - Type 2 diabetes mellitus with diabetic chronic kidney disease; N18.3 - Chronic kidney disease, stage 3 ( moderate) (6) HTN (hypertension) Code(s): I10 - ESSENTIAL (PRIMARY) HYPERTENSION Status: Chronic Qualifiers: Hypertension type: essential hypertension Qualified Code(s): I10 - Essential (primary) hypertension (7) Hypochromic microcytic anemia Code(s): D50.9 - IRON DEFICIENCY ANEMIA, UNSPECIFIED Status: Chronic (8) Hypothyroidism Code(s): E03.9 - HYPOTHYROIDISM, UNSPECIFIED Status: Chronic Qualifiers: Hypothyroidism type: unspecified Qualified Code(s): E03.9 - Hypothyroidism , unspecified (9) Tobacco abuse Code(s): Z72.0 - TOBACCO USE Status: Chronic - Plan dulcolax suppository q8h, senna, colace and 1 liter golytely will get GI opinion may dc antibiotics continue iv fluids, hydralazine, alogliptin, synthroid and lopressor to ambulate as tolerated
[2019-01-17] MEDS ORDERED: GoLYTELY 4,000 ml Bottle PO SCH (12:45)
[2019-01-17] MEDS: Dextrose 5 %-0.45 % NaCl 1,000 ML IV SCH ×2 (16:43→23:49)
--- NOTE | 2019-01-17 17:13 | CON ---
DATE OF CONSULTATION: 01/17/2019 REQUESTING PHYSICIAN: Dr. Bedolla. REASON FOR CONSULTATION: Rectal fecal impaction. HISTORY OF PRESENT ILLNESS: Vivien Howard is an 89-year-old woman previously seen by my GI colleague, Dr. Prisca Mccray. She has a history of diabetes, gout, COPD, and chronic kidney disease, as well as hypothyroidism. It looks like she had a colonoscopy in 2010, which demonstrated left-sided diverticulosis and tortuous colon. Ms. Howard was admitted to the hospital yesterday reporting 3 days, now 4 days, without any bowel movement. She normally does not deal with such severe constipation and will take some milk of magnesia p.r.n. She took some at home, but this had no effect. She had worsening lower abdominal pain, particularly in the left lower quadrant, as well as nausea and a few episodes of nonbloody emesis and this is what prompted her presentation. Overnight, she received more milk of magnesia, Senokot, and glycerin suppository. This morning, she has gotten through about half a bottle of GoLYTELY. Nursing reports she had one large liquidy bowel movement. Earlier today, the patient continues to have lower abdominal discomfort, though her nausea has improved a bit. REVIEW OF SYSTEMS: Full review of systems including constitutional, head, eyes, ears, nose, throat, GI, , cardiovascular, respiratory, musculoskeletal, and neurologic systems is negative except as noted in the HPI. PAST MEDICAL HISTORY: Diabetes, hypertension, gout, hypothyroidism, COPD, chronic kidney disease, appendectomy, hysterectomy, and thyroidectomy. SOCIAL HISTORY: She does smoke. No alcohol or drug abuse. FAMILY HISTORY: Noncontributory. ALLERGIES: NO KNOWN DRUG ALLERGIES. OUTPATIENT MEDICATIONS: 1. Milk of magnesia p.r.n. 2. Calcitriol. 3. Furosemide. 4. Hydralazine. 5. Levothyroxine. 6. Metoprolol. 7. Rosuvastatin. 8. Januvia. 9. Tramadol p.r.n. PHYSICAL EXAMINATION: VITAL SIGNS: Temperature 97.7, pulse 76, blood pressure 135/78, and 94% oxygen saturation on room air. GENERAL: Elderly 89-year-old woman, frail, lying in bed, in mild distress from lower abdominal discomfort. HEENT: Eyes; no scleral icterus. Extraocular movements intact. ENT, mucous membranes moist. No oral lesions. SKIN: No jaundice. No rashes were palpable. She has some bruising to the face from a recent fall. LYMPH: No submandibular or supraclavicular lymphadenopathy. THYROID: Nontender to palpation. HEART: Regular rate and rhythm. LUNGS: Clear to auscultation bilaterally. ABDOMEN: Mild distention, soft. Bowel sounds are present, but faint throughout some mild tenderness to palpation in the lower abdomen, but no guarding or rebound tenderness. EXTREMITIES: No peripheral edema. VESSELS: Radial pulses 2+ bilaterally. NEUROLOGIC: Cranial nerves 2 through 12 intact bilaterally. No focal deficits. RECTAL: Rectal exam was performed. The patient has a copious amount of hard solid stool within the rectal vault with liquid stool sliding around it. I spent about 5 minutes manually disimpacting the patient. Thankfully, I was eventually able to completely clear the rectum of impacted stool as far as I can reach. No palpable masses within the rectal vault. The patient does have hemorrhoids. LABORATORY STUDIES: WBC 13.3, hemoglobin 8.5, platelets 164, MCV 82.9. Sodium 139, potassium 4.6, BUN 48, creatinine 2.19, glucose 117, calcium 9.2. LFTs all normal with total bilirubin 0.4, alkaline phosphatase 86, AST 21, ALT 29, and albumin 3.9. Lipase only 29. Urinalysis negative. IMAGING STUDIES: CT of the abdomen and pelvis without contrast showed normal appearing liver and spleen. There was some distention of the gallbladder. Mild intra and extrahepatic biliary dilation. The left renal cyst, colonic diverticulosis, and extensive stool throughout the colon and particularly in the rectum with some adjacent stranding in the rectum suggestive of stercoral colitis. She also has severe atherosclerotic disease of the aorta. ASSESSMENT AND PLAN: 1. Rectal fecal impaction, now resolved after manual disimpaction at bedside today. 2. Constipation, acute on chronic. I advised the patient that she ought to just continue with a gallon of GoLYTELY and try to completely finish it over the course of the rest of the day. Now that the rectal impaction is resolved, hopefully this will give her a good cleanout. At that point, would simply recommend being more aggressive with a daily bowel regimen to keep this from happening again. I would advise that she be on MiraLAX 17 g. This should be titrated from 1 to 4 times daily as needed for a goal of daily bowel movement. Milk of magnesia or magnesium citrate could be used on top of this on a p.r.n. basis. The patient can follow up in the GI outpatient Clinic with Dr. Mccray. GI will sign off, but please call back with questions or concerns. Job ID: [id number]
[2019-01-17] MEDS: Docusate 100 MG CAP PO SCH (21:31)
[2019-01-17] MEDS: Famotidine 20 MG TAB PO SCH (21:31)
[2019-01-18] MEDS: Levothyroxine Sodium 75 MCG TAB PO SCH (05:12)
[2019-01-18] MEDS: Docusate 100 MG CAP PO SCH ×2 (08:47→19:52)
[2019-01-18] MEDS: Calcitriol 0.25 MCG CAP PO SCH (08:47)
[2019-01-18] MEDS: hydrALAZINE 25 MG TAB PO SCH ×3 (08:47→19:51)
[2019-01-18] MEDS: Senokot S 8.6-50 MG TAB PO SCH ×2 (08:47→19:52)
[2019-01-18] MEDS: Polyethylene Glycol 3350 17 GM Packet PO SCH (08:48)
[2019-01-18] MEDS: Metoprolol Tartrate 25 MG TAB PO SCH ×2 (08:50→19:50)
[2019-01-18] MEDS: Enoxaparin Sodium 30 MG/0.3 ML SYRINGE SC SCH (08:50)
--- NOTE | 2019-01-18 10:37 | PQF ---
CLINICAL DOCUMENTATION IMPROVEMENT CLARIFICATION FORM: ICD-10 Updated PLEASE DO AN ADDENDUM TO THE PROGRESS NOTE WITH ANY DOCUMENTATION UPDATES OR ADDITIONS AND CARRY THROUGH TO DC SUMMARY. THANK YOU. DATE: 01/18/19 ATTN: DR. ABDUL Please exercise your independent, professional judgment in responding to the clarification form. Clinical indicators are provided on the bottom of this form for your review Please check appropriate box(s) to clarify if the following diagnosis has been ruled in or ruled out: "SEPSIS" [ ] Ruled in diagnosis [ ] Continue to treat [ ] Resolved [ x ] Ruled out diagnosis [ ] Cannot rule out diagnosis [ ] Other diagnosis [ ] Unable to determine In addition, please specify: Present on Admission (POA): [ ] Yes [ ] No [ ] Unable to determine For continuity of documentation, please document condition throughout progress notes and discharge summary. Thank You. CLINICAL INDICATORS - SIGNS / SYMPTOMS / LABS ER NOTE 01/14: "PT WAS ADMITTED FOR SEPSIS 2/2 STERCOLITIS" "MEETS SEVERE SEPSIS CRITERIA W/ TACHYCARDIA, LEUKOCYTOSIS, LACTIC ACID OVER 2. PULSE 125 RR 20 WBC 01/17: 13.3 LACTIC ACID 01/16: 2.8 RISKS: STERCOLITIS (ER NOTE 01/14) H/O DIABETES (H&P 01/16) BIRDIE (PROGRESS NOTE 01/17) TREATMENT: IV ZOSYN (ER 01/14) IV FLUIDS (ER 01/14-PRESENT) [employer] (This form is maintained as a part of the permanent medical record) 2014 [employer]. All Rights Reserved [email or web address] Office: [phone] [facility]
[2019-01-18] MEDS: Alogliptin 6.25 MG TAB PO SCH (11:23)
[2019-01-18] MEDS: Dextrose 5 %-0.45 % NaCl 1,000 ML IV SCH (14:52)
[2019-01-18] MEDS ORDERED: Hydrocortisone Sod Succ/PF 100 mg/2 ml Vial IVP SCH (15:15)
[2019-01-18] MEDS: Famotidine 20 MG TAB PO SCH (19:52)
[2019-01-19] MEDS: Dextrose 5 %-0.45 % NaCl 1,000 ML IV SCH ×2 (02:50→13:05)
[2019-01-19] MEDS: Levothyroxine Sodium 75 MCG TAB PO SCH (05:23)
[2019-01-19 08:29] LABS: #Lymphocytes 1.2 thou/uL (1.20-3.40); #Neutrophils 6.7 thou/uL (1.40-6.50); %Basophils 0.1 % (0.0-1.0); %Eosinophils 0.3 % (0.0-10.0); %Lymphocytes 13.5 % (21.0-51.0); Hemoglobin 8.3 g/dL (12.0-16.0); Mean Corpuscular HGB CONC 30.1 g/dL (32.0-36.0); Mean Corpuscular Hemoglobin 25.5 pg (27.0-31.0); Mean Corpuscular Volume 84.7 fL (78.0-98.0); Mean Platelet Volume 10.3 fL (7.4-10.4); Platelet Count 142 thou/uL (130-400); RBC Distribution Width 15.7 % (11.5-14.5); Red Blood Cell (RBC) Count 3.26 mill/uL (4.20-5.40); White Blood Cell (WBC) Count 8.9 thou/uL (4.8-10.8)
[2019-01-19] MEDS: Polyethylene Glycol 3350 17 GM Packet PO SCH ×2 (08:41)
[2019-01-19] MEDS: Alogliptin 6.25 MG TAB PO SCH (08:41)
[2019-01-19] MEDS: Enoxaparin Sodium 30 MG/0.3 ML SYRINGE SC SCH (08:41)
[2019-01-19] MEDS: hydrALAZINE 25 MG TAB PO SCH ×2 (08:42→16:05)
[2019-01-19] MEDS: Calcitriol 0.25 MCG CAP PO SCH (08:42)
[2019-01-19] MEDS: Metoprolol Tartrate 25 MG TAB PO SCH (08:43)
[2019-01-19] MEDS: Docusate 100 MG CAP PO SCH (08:45)
[2019-01-19] MEDS: Senokot S 8.6-50 MG TAB PO SCH (08:45)
[2019-01-19 08:51] LABS: Anion Gap 9 mmol/L (10-20); BUN (Urea Nitrogen) 31 mg/dL (9.8-20.1); Calc. Creatinine Clearance 24 mL/min (70-130); Calcium 9.3 mg/dL (7.8-10.44); Carbon Dioxide 26 mmol/L (23-31); Chloride 108 mmol/L (98-107); Estimated GFR-MDRD 30; Glucose 120 mg/dL (83-110); Potassium 3.9 mmol/L (3.5-5.1); Sodium 139 mmol/L (136-145)
--- NOTE | 2019-01-19 12:25 | PDOC.HOSPP ---
- Subjective Encounter Date: 01/19/19 Encounter Time: 09:00 Subjective: stool is still watery after drinking golytely no abd pain or nausea but has loss of appetite she can drink 3 cans of ensure/boost. - Objective Vital Signs & Weight: Vital Signs (12 hours) Temp Pulse Resp BP BP Pulse Ox 01/19/19 08:42 72 121/67 01/19/19 08:00 98 01/19/19 07:35 98.9 F 72 20 121/67 98 01/19/19 05:37 75 16 100 01/19/19 04:15 98.8 F 73 16 159/71 H 95 Weight Weight 165 lb I&O: 01/18/19 01/19/19 01/20/19 06:59 06:59 06:59 Intake Total 2835 1000 Balance 2835 1000 Result Diagrams: 01/19/19 08:14 01/19/19 08:14 Additional Labs: Accuchecks 01/19/19 01/19/19 01/18/19 11:15 05:24 20:20 POC Glucose 107 112 H 287 H 01/18/19 15:52 POC Glucose 111 H Hospitalist ROS - Medication Medications: Active Medications Generic Name Dose Route Start Last Admin Trade Name Freq PRN Reason Stop Dose Admin Acetaminophen 650 mg 01/17/19 05:38 01/17/19 10:30 Tylenol PO 650 mg Q4H PRN Administration Headache/Fever or Pain Albuterol/Ipratropium 3 ml 01/18/19 01:57 01/19/19 05:37 Duoneb NEB 3 ml Q4H PRN Administration SOB &/or Wheezing Alogliptin Benzoate 6.25 mg 01/17/19 09:00 01/19/19 08:41 Alogliptin PO 6.25 mg DAILY ANNA Administration Calcitriol 0.25 mcg 01/17/19 09:00 01/19/19 08:42 Rocaltrol PO 0.25 mcg DAILY ANNA Administration Docusate Sodium 100 mg 01/17/19 21:00 01/19/19 08:45 Colace PO 100 mg BID ANNA Administration Enoxaparin Sodium 30 mg 01/17/19 09:00 01/19/19 08:41 Lovenox SC 30 mg 0900 ANNA Administration Famotidine 20 mg 01/16/19 21:00 01/18/19 19:52 Pepcid PO 20 mg Q24HR ANNA Administration Hydralazine HCl 50 mg 01/16/19 15:00 01/19/19 08:42 Apresoline PO 50 mg TID ANNA Administration Dextrose/Sodium Chloride 1,000 mls @ 75 mls/hr 01/16/19 06:15 01/19/19 02:50 D5 1/2 Ns IV Not Given .[id number] [facility] Insulin Human Lispro 0 units 01/16/19 09:28 01/18/19 20:37 Humalog SC 3 unit .BEDTIME SLIDING SC PRN Administration Bedtime Correctional Scale Levothyroxine Sodium 75 mcg 01/17/19 06:00 01/19/19 05:23 Synthroid PO 75 mcg 0600 ANNA Administration Magnesium Hydroxide 30 ml 01/16/19 09:10 01/17/19 10:39 Milk Of Magnesium PO 30 ml DAILYPRN PRN Administration Constipation Metoprolol Tartrate 12.5 mg 01/16/19 21:00 01/19/19 08:43 Lopressor PO 12.5 mg BID ANNA Administration Polyethylene Glycol 17 gm 01/18/19 09:00 01/19/19 08:41 Miralax PO 17 gm DAILY ANNA Administration Senna/Docusate Sodium 1 tab 01/16/19 21:00 01/19/19 08:45 Senokot S PO 1 tab BID ANNA Administration - Exam General Appearance: NAD, awake alert Eye: PERRL, anicteric sclera ENT: no oropharyngeal lesions, moist mucosa Neck: supple, no JVD Heart: RRR, no murmur Respiratory: no wheezes, no rales Gastrointestinal: soft, non-tender, non-distended, normal bowel sounds Extremities: no cyanosis, no edema Neurological: cranial nerve grossly intact, no focal deficits Psychiatric: normal affect, A&O x 3 Hosp A/P (1) Fecal impaction Code(s): K56.41 - FECAL IMPACTION Status: Resolved (2) BIRDIE (acute kidney injury) Code(s): N17.9 - ACUTE KIDNEY FAILURE, UNSPECIFIED Status: Acute (3) CKD (chronic kidney disease) Code(s): N18.9 - CHRONIC KIDNEY DISEASE, UNSPECIFIED Status: Chronic Qualifiers: Chronic kidney disease stage: stage 3 (moderate) Qualified Code(s): N18.3 - Chronic kidney disease, stage 3 (moderate) (4) CHF (congestive heart failure) Code(s): I50.9 - HEART FAILURE, UNSPECIFIED Status: Chronic Qualifiers: Heart failure type: unspecified (5) DM2 (diabetes mellitus, type 2) Status: Chronic Qualifiers: Diabetes mellitus fdc insulin use: without fdc use Diabetes mellitus complication status: with kidney complications Diabetes mellitus complication detail: with chronic kidney disease Chronic kidney disease stage : stage 3 (moderate) Qualified Code(s): E11.22 - Type 2 diabetes mellitus with diabetic chronic kidney disease; N18.3 - Chronic kidney disease, stage 3 ( moderate) (6) HTN (hypertension) Code(s): I10 - ESSENTIAL (PRIMARY) HYPERTENSION Status: Chronic Qualifiers: Hypertension type: essential hypertension Qualified Code(s): I10 - Essential (primary) hypertension (7) Hypochromic microcytic anemia Code(s): D50.9 - IRON DEFICIENCY ANEMIA, UNSPECIFIED Status: Chronic (8) Hypothyroidism Code(s): E03.9 - HYPOTHYROIDISM, UNSPECIFIED Status: Chronic Qualifiers: Hypothyroidism type: unspecified Qualified Code(s): E03.9 - Hypothyroidism , unspecified (9) Tobacco abuse Code(s): Z72.0 - TOBACCO USE Status: Chronic - Plan stool impaction resolved. hemostable, has deconditioning, awaiting rehab approval, may dc if approved continue hydralazine, alogliptin, synthroid and lopressor to ambulate as tolerated bowel regimen once her diarrhea resolves
--- NOTE | 2019-01-19 12:27 | PDOC.HOSPP ---
- Subjective Encounter Date: 01/18/19 Encounter Time: 13:00 Subjective: says she got cleaned out no nausea doesn't feel like eating much has ambulated 40ft with PT - Objective Vital Signs & Weight: Vital Signs (12 hours) Temp Pulse Resp BP BP Pulse Ox 01/19/19 08:42 72 121/67 01/19/19 08:00 98 01/19/19 07:35 98.9 F 72 20 121/67 98 01/19/19 05:37 75 16 100 01/19/19 04:15 98.8 F 73 16 159/71 H 95 Weight Weight 165 lb I&O: 01/18/19 01/19/19 01/20/19 06:59 06:59 06:59 Intake Total 2835 1000 Balance 2835 1000 Result Diagrams: 01/19/19 08:14 01/19/19 08:14 Additional Labs: Accuchecks 01/19/19 01/19/19 01/18/19 11:15 05:24 20:20 POC Glucose 107 112 H 287 H 01/18/19 15:52 POC Glucose 111 H Hospitalist ROS - Medication Medications: Active Medications Generic Name Dose Route Start Last Admin Trade Name Freq PRN Reason Stop Dose Admin Acetaminophen 650 mg 01/17/19 05:38 01/17/19 10:30 Tylenol PO 650 mg Q4H PRN Administration Headache/Fever or Pain Albuterol/Ipratropium 3 ml 01/18/19 01:57 01/19/19 05:37 Duoneb NEB 3 ml Q4H PRN Administration SOB &/or Wheezing Alogliptin Benzoate 6.25 mg 01/17/19 09:00 01/19/19 08:41 Alogliptin PO 6.25 mg DAILY ANNA Administration Calcitriol 0.25 mcg 01/17/19 09:00 01/19/19 08:42 Rocaltrol PO 0.25 mcg DAILY ANNA Administration Docusate Sodium 100 mg 01/17/19 21:00 01/19/19 08:45 Colace PO 100 mg BID ANNA Administration Enoxaparin Sodium 30 mg 01/17/19 09:00 01/19/19 08:41 Lovenox SC 30 mg 0900 ANNA Administration Famotidine 20 mg 01/16/19 21:00 01/18/19 19:52 Pepcid PO 20 mg Q24HR ANNA Administration Hydralazine HCl 50 mg 01/16/19 15:00 01/19/19 08:42 Apresoline PO 50 mg TID ANNA Administration Dextrose/Sodium Chloride 1,000 mls @ 75 mls/hr 01/16/19 06:15 01/19/19 02:50 D5 1/2 Ns IV Not Given .[id number] [facility] Insulin Human Lispro 0 units 01/16/19 09:28 01/18/19 20:37 Humalog SC 3 unit .BEDTIME SLIDING SC PRN Administration Bedtime Correctional Scale Levothyroxine Sodium 75 mcg 01/17/19 06:00 01/19/19 05:23 Synthroid PO 75 mcg 0600 ANNA Administration Magnesium Hydroxide 30 ml 01/16/19 09:10 01/17/19 10:39 Milk Of Magnesium PO 30 ml DAILYPRN PRN Administration Constipation Metoprolol Tartrate 12.5 mg 01/16/19 21:00 01/19/19 08:43 Lopressor PO 12.5 mg BID ANNA Administration Polyethylene Glycol 17 gm 01/18/19 09:00 01/19/19 08:41 Miralax PO 17 gm DAILY ANNA Administration Senna/Docusate Sodium 1 tab 01/16/19 21:00 01/19/19 08:45 Senokot S PO 1 tab BID ANNA Administration - Exam General Appearance: NAD, awake alert Eye: PERRL, anicteric sclera ENT: no oropharyngeal lesions, moist mucosa Neck: supple, no JVD Heart: RRR, no murmur Respiratory: no wheezes, no rales Gastrointestinal: soft, non-tender, non-distended, normal bowel sounds Extremities: no cyanosis, no edema Neurological: cranial nerve grossly intact, no focal deficits Psychiatric: normal affect, A&O x 3 Hosp A/P (1) Fecal impaction Code(s): K56.41 - FECAL IMPACTION Status: Resolved (2) BIRDIE (acute kidney injury) Code(s): N17.9 - ACUTE KIDNEY FAILURE, UNSPECIFIED Status: Acute (3) CKD (chronic kidney disease) Code(s): N18.9 - CHRONIC KIDNEY DISEASE, UNSPECIFIED Status: Chronic Qualifiers: Chronic kidney disease stage: stage 3 (moderate) Qualified Code(s): N18.3 - Chronic kidney disease, stage 3 (moderate) (4) CHF (congestive heart failure) Code(s): I50.9 - HEART FAILURE, UNSPECIFIED Status: Chronic Qualifiers: Heart failure type: unspecified (5) DM2 (diabetes mellitus, type 2) Status: Chronic Qualifiers: Diabetes mellitus tank terminal gauger insulin use: without jail use Diabetes mellitus complication status: with kidney complications Diabetes mellitus complication detail: with chronic kidney disease Chronic kidney disease stage : stage 3 (moderate) Qualified Code(s): E11.22 - Type 2 diabetes mellitus with diabetic chronic kidney disease; N18.3 - Chronic kidney disease, stage 3 ( moderate) (6) HTN (hypertension) Code(s): I10 - ESSENTIAL (PRIMARY) HYPERTENSION Status: Chronic Qualifiers: Hypertension type: essential hypertension Qualified Code(s): I10 - Essential (primary) hypertension (7) Hypochromic microcytic anemia Code(s): D50.9 - IRON DEFICIENCY ANEMIA, UNSPECIFIED Status: Chronic (8) Hypothyroidism Code(s): E03.9 - HYPOTHYROIDISM, UNSPECIFIED Status: Chronic Qualifiers: Hypothyroidism type: unspecified Qualified Code(s): E03.9 - Hypothyroidism , unspecified (9) Tobacco abuse Code(s): Z72.0 - TOBACCO USE Status: Chronic - Plan stool impaction resolved. Renal function is slowly trending down to baseline. hemostable, has deconditioning, pt prefers to go home and not be placed. continue hydralazine, alogliptin, synthroid and lopressor to ambulate as tolerated
[2019-01-19 15:46] VITALS: BP 120/73; TEMP 98
--- NOTE | 2019-01-19 20:04 | DIS ---
DATE OF ADMISSION: 01/16/2019 DATE OF DISCHARGE: 01/19/2019 DISCHARGE DISPOSITION: Inpatient rehab. PRIMARY DISCHARGE DIAGNOSES: Fecal impaction, resolved; deconditioning, resolving; acute kidney injury with moderate dehydration, resolved; chronic kidney disease, stage 3; history of congestive heart failure with diastolic dysfunction; diabetes mellitus, type 2; hypertension; chronic anemia; hypothyroidism. PROCEDURES DONE DURING HOSPITALIZATION: Abdominal pelvic CAT scan done on the day of admission showed excess stool in the colon, especially the rectum with some minimal adjacent stranding. Moderate diverticulosis coli without inflammation. Severe lumbar spondylosis with multilevel severe spinal stenosis. There is pronounced aortic atherosclerosis. A CT brain done on the day of admission showed no acute CVA. There was left forehead soft tissue density, likely hematoma. Hemoglobin and hematocrit were 8.3 and 27, platelet count 142, MCV is 84, white count of 8. Discharge BUN and creatinine are 31 and 1.9, serum bicarb of 26 on the day of discharge. Admitting BUN and creatinine were 72 and 2.6, with serum bicarb of 25. DISCHARGE MEDICATIONS: 1. Levothyroxine 75 mcg p.o. daily. 2. Omeprazole 20 mg p.o. daily. 3. Crestor 40 mg p.o. at bedtime. 4. Ultram q.6 hourly p.r.n. 5. Calcitriol 0.25 mcg p.o. daily. 6. Vitamin D3, 1000 units p.o. daily. 7. Colace 100 mg twice daily. 8. MiraLax 17 g daily. 9. Hydralazine 50 mg three times daily. 10. Lopressor 12.5 mg twice daily. 11. Lasix 40 mg daily. 12. Januvia 25 mg p.o. daily. 13. The patient to continue her prednisone as before, which she has been taking for chronic back pain. DISCHARGE PLAN: The patient is being discharged to inpatient rehab. BRIEF COURSE DURING HOSPITALIZATION: The patient initially came to ER with complaints of abdominal pain in the lower quadrants, constipation for 3 days, and nausea and vomiting with loss of appetite. She has had her initial CT scan done, which showed large volume of stool in the colon, specifically rectum. Multiple attempts at digital removal of stool from rectum initially failed, but subsequently this was accomplished by Dr. Rudi Elizalde, steamer operator. She was subsequently given a liter of GoLYTELY and has completely cleaned out her bowels. She had moderate to severe dehydration with acute kidney injury with an underlying chronic kidney disease, stage 3. She was volume resuscitated and has responded well. In view of deconditioning, she is being discharged to inpatient rehab for further recuperation prior to going home. She is otherwise hemodynamically stable. Please note, the patient is on prednisone at home and this needs to be slowly tapered and discontinued if possible via her primary care physician, Dr. Gutierrez. She also needs to see Dr. Ferrell in 1 week. Job ID: [id number]
--- NOTE | 2019-01-21 15:07 | EKG ---
Test Reason : Blood Pressure : / mmHG Vent. Rate : 126 BPM Atrial Rate : 126 BPM P-R Int : 144 ms QRS Dur : 098 ms QT Int : 324 ms P-R-T Axes : 000 -54 081 degrees QTc Int : 469 ms Sinus tachycardia Left anterior fascicular block Voltage criteria for left ventricular hypertrophy Abnormal ECG Confirmed by DELANEY ROSS DO ([id number]), art editor KUNAL WHITNEY ([id number]) on 01/21/2019 3:07:20 PM Referred By: Confirmed By:DELANEY ROSS DO
== END 2019-01-19 17:35 | DRG 389 ==
LOC: ERS 01:52 → SURG A 05:26
PROVIDERS: ADMIT Internal Medicine; ATTEND Internal Medicine
DX: K56.41 Fecal impaction (principal); I13.0 Hypertensive heart and chronic kidney disease with heart failure and stage 1 through stage 4 chronic kidney disease, or unspecified chronic kidney disease; N17.9 Acute kidney failure, unspecified; I50.32 Chronic diastolic (congestive) heart failure; E11.22 Type 2 diabetes mellitus with diabetic chronic kidney disease; N18.3 Chronic kidney disease, stage 3 (moderate); D64.9 Anemia, unspecified; E03.9 Hypothyroidism, unspecified; M48.061 Spinal stenosis, lumbar region without neurogenic claudication; E86.0 Dehydration; R53.81 Other malaise; M10.9 Gout, unspecified; J44.9 Chronic obstructive pulmonary disease, unspecified; F17.210 Nicotine dependence, cigarettes, uncomplicated; M79.81 Nontraumatic hematoma of soft tissue; K57.90 Diverticulosis of intestine, part unspecified, without perforation or abscess without bleeding; Z90.89 Acquired absence of other organs; Z90.710 Acquired absence of both cervix and uterus; Z79.899 Other long term (current) drug therapy; Z79.4 Long term (current) use of insulin
CPT/HCPCS: 36415; 36416; 51701; 70450; 74176; 80048; 80053; 81003; 81015; 82550; 83605; 83690; 85025; 87040; 87149; 93005; 94640; 96361; 96365; 96375; A4353; J0692; J1650; J1720; J2270; J2405; J2543; J3490; J7620

== ENCOUNTER 2019-08-04 14:13 | Inpatient (IN) | payer MEDICARE, BC, OTHER ==
--- NOTE | 2019-08-04 15:11 | CT ---
Exam: Head CT without contrast HISTORY: Generalized weakness and dizziness, x1 week. COMPARISON: 01/16/2019 FINDINGS: Hemorrhage: No intraparenchymal hemorrhage or extra-axial hematoma. Brain parenchyma: Cortical mendoza-white matter differentiation is preserved. No mass effect or midline shift. Basilar cisterns are patent.Stable white matter hypodensities due to chronic small vessel ischemic change. Ventricular system: Ventricles and sulci are patent and symmetric. Calvarium: Intact. Note is made of a mild hyperostosis from talus interna. Sinuses and mastoid air cells: Adequate aeration. IMPRESSION: No acute intracranial process.
--- NOTE | 2019-08-04 15:21 | RAD ---
RADIOGRAPH CHEST 1 VIEW: DATE: 08/04/2019 TIME: 2:42 PM HISTORY: 89-year-old female with malaise COMPARISON: 10/14/2018 FINDINGS: Left lung base is excluded from the [id number]. Cannot rule out left lower lobe consolidation. Nod ular density with ill-defined margins at right midlung zone of approximately 2 to 3 cm in size, change from prior study. No vega pulmonary edema. No pneumothorax. Right lateral costophrenic angle is sharp. IMPRESSION: 1. Suboptimal study. Suboptimal positioning. 2. Questionable left lower lobe consolidation. 3. Apparent focal pulmonary nodule in right midlung field.
[2019-08-04] MEDS ORDERED: Meclizine HCl 25 MG TAB ONE (15:37)
[2019-08-04 15:45] LABS: #Lymphocytes 1.2 thou/uL (1.20-3.40); #Monocytes 0.8 thou/uL (0.11-0.59); #Neutrophils 6.4 thou/uL (1.40-6.50); %Basophils 0.3 % (0.0-1.0); %Eosinophils 0.1 % (0.0-10.0); %Lymphocytes 14.6 % (21.0-51.0); %Monocytes 9.2 % (0.0-10.0); %Neutrophils 75.8 % (42.0-75.0); Hemoglobin 11.3 g/dL (12.0-16.0); Mean Corpuscular HGB CONC 30.9 g/dL (32.0-36.0); Mean Corpuscular Hemoglobin 25.8 pg (27.0-31.0); Mean Corpuscular Volume 83.6 fL (78.0-98.0); Mean Platelet Volume 8.8 fL (7.4-10.4); Platelet Count 184 thou/uL (130-400); RBC Distribution Width 17.2 % (11.5-14.5); White Blood Cell (WBC) Count 8.4 thou/uL (4.8-10.8)
[2019-08-04 16:12] LABS: ALT (SGPT) 29 U/L (8-55); AST (SGOT) 39 U/L (5-34); Albumin 3.7 g/dL (3.4-4.8); Alkaline Phosphatase 103 U/L (40-110); Anion Gap 16 mmol/L (10-20); BUN (Urea Nitrogen) 44 mg/dL (9.8-20.1); Bilirubin, Total 0.4 mg/dL (0.2-1.2); Calc. Creatinine Clearance 0 mL/min (70-130); Calcium 12.4 mg/dL (7.8-10.44); Carbon Dioxide 26 mmol/L (23-31); Chloride 99 mmol/L (98-107); Estimated GFR-MDRD 17; Globulin 3.8 g/dL (2.4-3.5); Glucose 75 mg/dL (83-110); Magnesium 2.9 mg/dL (1.6-2.6); Potassium 4.4 mmol/L (3.5-5.1); Protein, Total 7.5 g/dL (6.0-8.3); Sodium 137 mmol/L (136-145)
[2019-08-04 16:17] LABS: Bilirubin Negative (Negative); Blood, Urine Negative (Negative); Clarity Turbid (Clear); Glucose, Urine (Dipstick) Normal (Negative); Leukocyte Negative Leu/uL (Negative); Nitrite Negative (Negative); Protein, Urine (Dipstick) 30 mg/dL (Neg-Trace); RBC/HPF 0-3 HPF (0-3); Urobilinogen Normal mg/dL (Less than 2); WBC/HPF 0-3 HPF (0-3)
[2019-08-04 16:25] LABS: Bacteria/HPF 2+ HPF (None Seen)
[2019-08-04 16:32] LABS: CKMB 1.2 ng/mL (0-6.6)
[2019-08-04] MEDS ORDERED: Enoxaparin Sodium 60 MG/0.6 ML SYRINGE ONE (16:43)
--- NOTE | 2019-08-04 17:19 | CT ---
CT THORAX NONCONTRAST: DATE: 08/04/2019 HISTORY: 89-year-old female with generalized weakness. COMPARISON: 03/08/2018 FINDINGS: In the superior segment of the right lower lobe, the previously mentioned 0.9 cm pulmonary nodule has grown to current dimensions of approximately 3 x 3 x 2.5 cm. It has lobular margins. It contains several small air-filled cysts. There is no consolidation or pulmonary edema. Small focal scar at the left far lateral, subpleural as pect of the lingula unchanged. No pleural effusion. 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 Atherosclerosis, ectasia, and tortuosity of thoracic aorta. Extensive atherosclerosis o f coronary arteries. Calcified pleural plaque on the left suggests prior asbestos exposure . IMPRESSION: Superior segment right lower lobe pulmonary mass has grown, highly suspicious for lung cancer.
[2019-08-04] MEDS ORDERED: Acetaminophen 325 MG TAB PO PRN (18:22)
[2019-08-04] MEDS ORDERED: Acetaminophen 650 MG Suppository PR PRN (18:22)
[2019-08-04] MEDS ORDERED: Sodium Chloride 0.9% 1,000 ML IV SCH (18:30)
--- NOTE | 2019-08-04 19:24 | PDOC.HHP ---
Hospitalist HPI - History of Present Illness Dizziness/Weakness History of Present Illness: Patient states she has been feeling generally weak and unwell for "over a month " and has had dizziness with an unsteady gait for 2-3 weeks. She has been gradually feeling worse and today after she spoke to her daughter about it she contacted her PCP Dr. Christine who advised she come in to the ED. Patient was brought from home where she lives alone by ambulance. She states her gait was been off as if she were "drunk" and she has been unsteady despite using a walker as she normally does. She has felt a "spinning"sensation present even when she is laying down. At the moment her dizziness as settled. Denies any pain. No facial numbness no extremity numbness but does report generalized weakness. No headaches. Reports vomiting for a week and reduced oral intake for several weeks. Has had weight loss but is unsure how much. ED Course: CT head: negative, without contrast, no bleed, no mass, no acute ischemic stroke , no acute changes. Chest xray: 1. Suboptimal study. Suboptimal positioning. 2. Questionable left lower lobe consolidation. 3. Apparent focal pulmonary nodule in right midlung field. CT Chest without contrast: In the superior segment of the right lower lobe, the previously mentioned 0.9 cm pulmonary nodule has grown to 3 x 3 x 2.5 cm. It has lobular margins. It contains several small air-filled cysts. Highly suspicious for cancer, per radiology report. Stable left adrenal mass, benign. Atherosclerosis, ectasia, and tortuosity of thoracic aorta. Extensive atherosclerosis of coronary arteries. Calcified pleural plaque on the left suggests prior asbestos exposure . WCC 8.4, Hgb 11.3, Platelets 184, Neturophils, 75.8 Lactic acid 1.3, Trop 0.101, Mg 2.9 BUN 44, Creat 3.11, GFR 17 (worse from baseline). Glucose 75, Calcium 12.4, AST 39, ALT 29, lipase normal. TSH 50.7198 UA: 30 protein, 2+ bacteria, 11-20 squamous epithelial cells, otherwise negative. Turbid in appearance. Patient given 1L NS and meclizine. Also due to elevated trop and EKG showing T wave inversion, she was given Lovenox. Hospitalist ROS - Review of Systems Constitutional: reports: weakness, malaise, other (dizzinesss) Eyes: denies: pain, vision change, conjunctivae inflammation, eyelid inflammation, redness, other ENT: denies: ear pain, ear discharge, nose pain, nose discharge, nose congestion , mouth pain, mouth swelling, throat pain, throat swelling, other Respiratory: reports: cough (chronic and unchanged) Cardiovascular: reports: light headedness. denies: chest pain, palpitations, orthopnea, paroxysmal noc. dyspnea, edema, other Gastrointestinal: reports: nausea, vomiting Genitourinary: denies: dysuria, frequency, incontinence, hematuria, retention, other Musculoskeletal: denies: neck pain, shoulder pain, arm pain, back pain, hand pain, leg pain, foot pain, other Skin: denies: rash, lesions, cayetano, bruising, other Neurological: reports: incoordination, other (Dizziness/unsteady gait) - Medication Medications: ALLERGIES: No known drug allergies. HOME MEDICATIONS: omeprazole CAPSULE,DELAYED RELEASE (ENTERIC COATED) : Strength - 20 mg : ORAL Patient Dose: 20 mg Oral once a day. hydrALAZINE oral TABLET : Strength - 25 mg : ORAL Patient Dose: 1 tab(s) Oral 3 times a day (with meals). Januvia TABLET : Strength - 50 mg : ORAL Patient Dose: 1 tab(s) Oral once a day. calcitriol oral CAPSULE : Strength - 0.25 mcg : ORAL Patient Dose: 1 cap(s) Oral once a day. levothyroxine oral TABLET : Strength - 75 mcg : ORAL Patient Dose: 1 tab(s) Oral once a day (in the morning). meTOPROLOL tartrate oral TABLET : Strength - 25 mg : ORAL Patient Dose: 1 tab(s) Oral 2 times a day. Vitamin D3 CAPSULE : Strength - 1,000 unit : ORAL Patient Dose: 1 cap(s) Oral once a day. Crestor TABLET : Strength - 40 mg : ORAL Patient Dose: 40 mg Oral once a day. Iron (ferrous sulfate) TABLET : Strength - 325 mg (65 mg iron) : ORAL Patient Dose: 325 mg Oral once a day. traMADol TABLET : Strength - 50 mg : ORAL Patient Dose: 1 tab(s) Oral every 4 hours prn. colchicine oral TABLET : Strength - 0.6 mg : ORAL Patient Dose: 2 tab(s) Oral ONCE.take two tabs once, then one tab one hour later. Hospitalist History - Past Medical History Source: patient Cardiac: reports: HTN Pulmonary: reports: COPD Rheumatologic: reports: Gout Renal/: reports: Chronic renal failure Endocrine: reports: Diabetes, Hypothyroidism - Past Surgical History Past Surgical History: reports: Appendectomy, Hysterectomy, Tonsillectomy, Other (removal of left lung lesion (benign)) Other Surgical History: Thyroidectomy - Social History Smoking Status: Current some day smoker (3 cigarettes a week) Alcohol: reports: None Drugs: reports: none Living Situation: Alone Activity level: uses cane/walker - Exam General Appearance: NAD General - other findings: generally unwell and frail appearance Eye: PERRL ENT: normocephalic atraumatic, moist mucosa Neck: supple, no lymphadenopathy Heart: RRR, murmur present Respiratory: CTAB, no wheezes, no rales, no ronchi, no tachypnea Gastrointestinal: soft, non-tender, non-distended, normal bowel sounds, no guarding, no rigidity Extremities: no edema Skin: tenting Neurological: cranial nerve grossly intact Musculoskeletal: generalized weakness Musculoskeletal - other findings: generally diminished strength in arms and legs Psychiatric: normal affect, normal behavior, A&O x 3 Hospitalist Results - Labs Result Diagrams: 08/04/19 15:29 08/04/19 15:29 Lab results: WBC 8.4 thou/uL (4.8-10.8) 08/04/19 15: Hgb 11.3 g/dL (12.0-16.0) L 08/04/19 15:29 Hct 36.8 % (36.0-47.0) 08/04/19 15:29 MCV 83.6 fL (78.0-98.0) 08/04/19 15:29 Plt Count 184 thou/uL (130-400) 08/04/19 15:29 Neutrophils % 75.8 % (42.0-75.0) H 08/04/19 15:29 Sodium 137 mmol/L (136-145) 08/04/19 15:29 Potassium 4.4 mmol/L (3.5-5.1) 08/04/19 15:29 Chloride 99 mmol/L (98-107) 08/04/19 15: Carbon Dioxide 26 mmol/L (23-31) 08/04/19 15:29 BUN 44 mg/dL (9.8-20.1) H 08/04/19 15:29 Creatinine 3.11 mg/dL (0.6-1.1) H 08/04/19 15:29 Glucose 75 mg/dL (83-110) L 08/04/19 15:29 Lactic Acid 1.3 mmol/L (0.5-2.2) 08/04/19 15:34 Calcium 12.4 mg/dL (7.8-10.44) H* 08/04/19 15:29 Total Bilirubin 0.4 mg/dL (0.2-1.2) 08/04/19 15:29 AST 39 U/L (5-34) H 08/04/19 15:29 ALT 29 U/L (8-55) 08/04/19 15:29 Alkaline Phosphatase 103 U/L (40-110) 08/04/19 15:29 CK-MB (CK-2) 1.2 ng/mL (0-6.6) 08/04/19 15: Troponin I 0.101 ng/mL (< 0.028) H 08/04/19 15:29 Serum Total Protein 7.5 g/dL (6.0-8.3) 08/04/19 15:29 Albumin 3.7 g/dL (3.4-4.8) 08/04/19 15:29 Urine Ketones Negative mg/dL (Negative) 08/04/19 15:39 Urine Blood Negative (Negative) 08/04/19 15:39 Urine Nitrite Negative (Negative) 08/04/19 15:39 Ur Leukocyte Esterase Negative Roshan/uL (Negative) 08/04/19 15:39 Urine RBC 0-3 HPF (0-3) 08/04/19 15:39 Urine WBC 0-3 HPF (0-3) 08/04/19 15:39 Ur Squamous Epith Cells 11-20 HPF (0-3) A 08/04/19 15:39 Urine Bacteria 2+ HPF (None Seen) A 08/04/19 15:39 - Radiology Interpretation CT scan - head Status: report reviewed by me CT scan - chest Status: report reviewed by me Hospitalist H&P A/P - Problem (1) Dizziness Code(s): R42 - DIZZINESS AND GIDDINESS Status: Acute (2) Generalized weakness Code(s): R53.1 - WEAKNESS Status: Acute (3) Electrolyte disturbance Code(s): E87.8 - OTH DISORDERS OF ELECTROLYTE AND FLUID BALANCE, NEC Status: Acute (4) TSH elevation Code(s): R79.89 - OTHER SPECIFIED ABNORMAL FINDINGS OF BLOOD CHEMISTRY Status : Acute (5) Vomiting Code(s): R11.10 - VOMITING, UNSPECIFIED Status: Acute (6) Lung mass Code(s): R91.8 - OTHER NONSPECIFIC ABNORMAL FINDING OF LUNG FIELD Status: Acute (7) Appetite loss Code(s): R63.0 - ANOREXIA Status: Acute (8) Zrfle-se-nzdnwvy kidney injury Code(s): N17.9 - ACUTE KIDNEY FAILURE, UNSPECIFIED; N18.9 - CHRONIC KIDNEY DISEASE, UNSPECIFIED Status: Acute (9) Elevated troponin Code(s): R79.89 - OTHER SPECIFIED ABNORMAL FINDINGS OF BLOOD CHEMISTRY Status : Acute (10) CHF (congestive heart failure) Code(s): I50.9 - HEART FAILURE, UNSPECIFIED Status: Chronic Qualifiers: Heart failure type: unspecified (11) DM2 (diabetes mellitus, type 2) Status: Chronic Qualifiers: Diabetes mellitus chcf insulin use: without chcf use Diabetes mellitus complication status: with kidney complications Diabetes mellitus complication detail: with chronic kidney disease Chronic kidney disease stage : stage 3 (moderate) Qualified Code(s): E11.22 - Type 2 diabetes mellitus with diabetic chronic kidney disease; N18.3 - Chronic kidney disease, stage 3 ( moderate) (12) HTN (hypertension) Code(s): I10 - ESSENTIAL (PRIMARY) HYPERTENSION Status: Chronic Qualifiers: Hypertension type: essential hypertension Qualified Code(s): I10 - Essential (primary) hypertension (13) Hypothyroidism Code(s): E03.9 - HYPOTHYROIDISM, UNSPECIFIED Status: Chronic Qualifiers: Hypothyroidism type: unspecified Qualified Code(s): E03.9 - Hypothyroidism , unspecified - Plan Plan: Continue gentle IV hydration. Repeat electrolytes to assess for improvement following fluids. Orthostatic BPs. Echo ordered. Monitor blood glucose, initiate sliding scale. Pulmonary consult placed, given growth of lung mass. Consider Palliative Care consult. Continue to trend troponins. 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 Patient frail and high risk for falls, therefore will hold on further anticoagulation. PT/OT consulted. Complete bedside screening for dysphagia to ensure not at risk for aspiration. Manager Cardiovascular consulted. If symptoms persist despite hydration, consider further imaging of the brain with MRI, as per discussion with Dr. Musa. Monitor renal function, if no improvement consider nephrology consult. Further thyroid function tests ordered. Reconcile home medications as appropriate once verified. ADRIAN is her daughter Daniella Franz. CODE STATUS: FULL Above patient discussed with Dr. Musa who agrees with plan as above.
[2019-08-04] MEDS ORDERED: Dextrose 5 %-0.45 % NaCl 1,000 ML IV SCH (19:30)
[2019-08-04 21:05] LABS: Troponin I 0.099 ng/mL (< 0.028)
[2019-08-04 22:54] LABS: Troponin I 0.129 ng/mL (< 0.028)
[2019-08-05] MEDS ORDERED: traMADol HCl 50 MG TAB PO PRN (00:45)
[2019-08-05 02:45] LABS: #Lymphocytes 1.2 thou/uL (1.20-3.40); #Monocytes 0.7 thou/uL (0.11-0.59); #Neutrophils 5.2 thou/uL (1.40-6.50); %Basophils 0.7 % (0.0-1.0); %Eosinophils 0.5 % (0.0-10.0); %Lymphocytes 17.3 % (21.0-51.0); %Neutrophils 71.5 % (42.0-75.0); Hemoglobin 10.4 g/dL (12.0-16.0); Mean Corpuscular HGB CONC 30.5 g/dL (32.0-36.0); Mean Corpuscular Hemoglobin 25.9 pg (27.0-31.0); Mean Corpuscular Volume 84.9 fL (78.0-98.0); Mean Platelet Volume 11.5 fL (7.4-10.4); Platelet Count 155 thou/uL (130-400); RBC Distribution Width 16.9 % (11.5-14.5); Red Blood Cell (RBC) Count 4.01 mill/uL (4.20-5.40); White Blood Cell (WBC) Count 7.2 thou/uL (4.8-10.8)
[2019-08-05 03:10] LABS: Chloride 103 mmol/L (98-107); Potassium 3.5 mmol/L (3.5-5.1); Sodium 138 mmol/L (136-145)
[2019-08-05 03:11] LABS: Calcium 11.6 mg/dL (7.8-10.44); Glucose 94 mg/dL (83-110)
[2019-08-05 03:13] LABS: Anion Gap 11 mmol/L (10-20); Carbon Dioxide 28 mmol/L (23-31)
[2019-08-05 03:15] LABS: Calc. Creatinine Clearance 15 mL/min (70-130); Estimated GFR-MDRD 20
[2019-08-05 03:16] LABS: BUN (Urea Nitrogen) 40 mg/dL (9.8-20.1)
[2019-08-05 03:17] LABS: Magnesium 2.7 mg/dL (1.6-2.6)
[2019-08-05 03:27] LABS: CKMB 1.4 ng/mL (0-6.6)
[2019-08-05 03:36] LABS: Free T4 (Free Thyroxine) 0.76 ng/dL (0.70-1.48)
[2019-08-05] MEDS: Sodium Chloride 0.9% 1,000 ML IV SCH (03:43)
[2019-08-05] MEDS ORDERED: Sodium Chloride 0.9% 500 ML IV SCH (03:45)
[2019-08-05] MEDS: Levothyroxine Sodium 75 MCG TAB PO SCH (06:41)
[2019-08-05] MEDS: Famotidine/PF 20 mg/2ml Vial SLOW IVP SCH (08:40)
[2019-08-05] MEDS: Polyethylene Glycol 3350 17 GM Packet PO SCH (08:40)
[2019-08-05] MEDS: Docusate 100 MG CAP PO SCH ×2 (08:40→20:48)
[2019-08-05] MEDS: Colchicine 0.6 MG TAB PO SCH ×2 (08:40→20:47)
[2019-08-05] MEDS: Calcitriol 0.25 MCG CAP PO SCH (08:42)
[2019-08-05] MEDS ORDERED: Metoprolol Tartrate 25 MG TAB PO SCH (09:00)
[2019-08-05] MEDS: hydrALAZINE 25 MG TAB PO SCH ×3 (10:39→20:47)
--- NOTE | 2019-08-05 12:49 | PDOC.HOSPP ---
- Subjective Encounter Date: 08/05/19 Subjective: fragile, AOx3, she states that she did not hear well, with masks being on me. explained as loud as i could. covid rule out. asked whether she takes thyroxine at home - states she does not remember. BP on the low end. - Objective Vital Signs & Weight: Vital Signs (12 hours) Temp Pulse Resp BP Pulse Ox 08/05/19 10:39 50 L 08/05/19 08:00 97 08/05/19 07:00 98.6 F 08/05/19 04:45 50 L 117/56 L 99 08/05/19 04:21 44 L 101/51 L 99 08/05/19 03:42 40 L 111/56 L 99 08/05/19 03:19 41 L 98/50 L 08/05/19 03:15 39 L 88/47 L 99 08/05/19 02:25 98.6 F 58 L 16 139/63 98 Weight Weight 141 lb Most Recent Monitor Data Heart Rate from ECG 44 NIBP 116/45 NIBP BP-Mean 97 Respiration from ECG 22 SpO2 95 I&O: 08/04/19 08/05/19 08/06/19 06:59 06:59 06:59 Intake Total 450 Balance 450 Result Diagrams: 08/05/19 02:30 08/05/19 02:30 Additional Labs: Accuchecks 08/04/19 14:46 POC Glucose 92 Hospitalist ROS - Medication Medications: Active Medications Generic Name Dose Route Start Last Admin Trade Name Freq PRN Reason Stop Dose Admin Calcitriol 0.5 mcg 08/05/19 09:00 08/05/19 08:42 Rocaltrol PO 0.5 mcg DAILY ANNA Administration Cholecalciferol 1,000 units 08/05/19 09:00 08/05/19 08:40 Vitamin D3 PO 1,000 units DAILY ANNA Administration Colchicine 0.6 mg 08/05/19 09:00 08/05/19 08:40 Colchicine PO 0.6 mg BID ANNA Administration Docusate Sodium 100 mg 08/05/19 09:00 08/05/19 08:40 Colace PO 100 mg BID ANNA Administration Famotidine 20 mg 08/05/19 09:00 08/05/19 08:40 Pepcid SLOW IVP 20 mg DAILY ANNA Administration Hydralazine HCl 50 mg 08/05/19 09:00 08/05/19 10:39 Apresoline PO Not Given TID ANNA Sodium Chloride 1,000 mls @ 50 mls/hr 08/05/19 03:45 08/05/19 03:43 Normal Saline 0.9% IV 1,000 mls .Q20H ANNA Administration Levothyroxine Sodium 75 mcg 08/05/19 06:00 08/05/19 06:41 Synthroid PO 75 mcg 0600 ANNA Administration Polyethylene Glycol 17 gm 08/05/19 09:00 08/05/19 08:40 Miralax PO 17 gm DAILY ANNA Administration - Exam General Appearance: NAD, ill appearing Eye: PERRL ENT: normocephalic atraumatic Neck: supple Heart: irregular Respiratory: CTAB, normal chest expansion Gastrointestinal: soft, normal bowel sounds Hosp A/P - Plan 1) Dizziness Code(s): R42 - DIZZINESS AND GIDDINESS Status: Acute (2) Generalized weakness Code(s): R53.1 - WEAKNESS Status: Acute (3) Electrolyte disturbance Code(s): E87.8 - OTH DISORDERS OF ELECTROLYTE AND FLUID BALANCE, NEC Status: Acute (4) TSH elevation significant, severe hypothyroidis -FT4 nl range - cw levo at 75ucg - will repeat TSH in few days. (5) Vomiting Code(s): R11.10 - VOMITING, UNSPECIFIED Status: Acute (6) Lung mass -Pulm consulted. 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 (11) DM2 (diabetes mellitus, type 2) (12) HTN (hypertension) - bp on the low end, hydralazine on hold - restart home lopressor, when BP allows. COVID-19 rule out.
[2019-08-05] MEDS ORDERED: Vancomycin HCl 1.25 GM in Sodium Chloride 0.9% 250 ML 250 ML IVPB SCH (14:00)
--- NOTE | 2019-08-05 17:05 | CON ---
DATE OF CONSULTATION: 08/05/2019 REASON FOR CONSULTATION: Elevated troponins. HISTORY OF PRESENT ILLNESS: Ms. Howard is an 89-year-old female, who comes to the hospital for feeling weak and dizzy. She has been having vomiting for about a week and reduced oral intake for several weeks and weight loss of several pounds. She was admitted and evaluated. Troponins were drawn, they were indeterminate range x3, so Cardiology has been consulted for this. She denies any chest pain, tightness or pressure. No shortness of breath. PAST MEDICAL HISTORY: 1. COPD, on home O2. 2. Chronic kidney disease, stage 4, followed by Dr. Ferrell. 3. Type 2 diabetes. 4. Hypothyroidism. 5. Hypertension. 6. Ongoing tobacco use. PAST SURGICAL HISTORY: 1. Left lung tumor removed. 2. Appendectomy. 3. Hysterectomy. 4. Thyroidectomy. 5. Tonsillectomy. SOCIAL HISTORY: She smokes a pack that lasts about a month, before it was 2 packs a day. No drug use. No alcohol use. OUTPATIENT MEDICATIONS: 1. Colchicine 0.6 mg b.i.d. 2. Tramadol. 3. Januvia. 4. Prednisone 20 mg a day. 5. Hydralazine 50 mg t.i.d. 6. Rosuvastatin 40 mg at bedtime. 7. MiraLAX. 8. Omeprazole. 9. Metoprolol tartrate 12.5 mg b.i.d. 10. Levothyroxine 75 mcg a day. 11. Furosemide 40 mg a day. 12. Docusate 100 mg b.i.d. 13. Vitamin D3. 14. Calcitriol. ALLERGIES: NO KNOWN DRUG ALLERGIES. REVIEW OF SYSTEMS: Negative. PHYSICAL EXAMINATION: VITAL SIGNS: Temperature 98.6, pulse 54, respiratory rate 24, sat 92% on room air, and blood pressure 109/78. Rest of the physical exam was deferred secondary to the patient being a COVID rule out at this time. It will be updated tomorrow. LABORATORY DATA: Laboratory work was reviewed. White count of 7.2, hemoglobin of 10.4, hematocrit of 34, and platelet count of 155. Chemistries were reviewed, unremarkable except for BUN of 40, creatinine 2.7, and GFR of 20. Troponins were 0.09, 0.12 and 0.09. Very elevated TSH at 50, but free T4 was normal on the low side of 0.76 and free T3 at 1.62, which is low as well. UA was reviewed with 2+ bacteria, 11-20 squamous epithelial cells, and turbid. CT of the chest showed superior segment right lower lobe pulmonary mass, highly suspicious for lung cancer. ASSESSMENT/PLAN: 1. Lung mass, suspicious for lung cancer. 2. Type 2 World Health Organization demand ischemia. 3. Chronic obstructive pulmonary disease. PLAN: 1. Her troponin elevation is not indicative of an acute coronary syndrome, neither are her symptoms. 2. We will plan on doing an echocardiogram once COVID-19 has been ruled out. 3. Unlikely this is a cardiac issue, most probably this is related to her new mass. Thank you for letting us to participate in the care of your patient. We will follow with you. Job ID: [id number]
[2019-08-05] MEDS: Rosuvastatin 20 MG TAB PO SCH (20:48)
[2019-08-06] MEDS: Sodium Chloride 0.9% 1,000 ML IV SCH ×2 (00:43→20:41)
[2019-08-06] MEDS: Albuterol 200 PUFF (6.7GM INHALER) INH SCH ×4 (00:44→18:24)
[2019-08-06] MEDS: Levothyroxine Sodium 75 MCG TAB PO SCH (06:01)
[2019-08-06] MEDS: hydrALAZINE 25 MG TAB PO SCH ×3 (09:10→20:44)
[2019-08-06] MEDS: Colchicine 0.6 MG TAB PO SCH ×2 (09:11→20:44)
[2019-08-06] MEDS: Docusate 100 MG CAP PO SCH ×2 (09:11→20:44)
[2019-08-06] MEDS: Famotidine/PF 20 mg/2ml Vial SLOW IVP SCH (09:12)
[2019-08-06] MEDS: Calcitriol 0.25 MCG CAP PO SCH (09:13)
[2019-08-06] MEDS: Polyethylene Glycol 3350 17 GM Packet PO SCH (09:16)
[2019-08-06 11:53] LABS: SARS-CoV-2 MS2 Positive; SARS-CoV-2 N Gene Negative; SARS-CoV-2 S Gene Negative; SARS-CoV-2 orf1ab Negative
--- NOTE | 2019-08-06 12:28 | PDOC.HOSPP ---
- Subjective Encounter Date: 08/06/19 Encounter Time: 09:50 Subjective: coid pending, wants coffee. no acute events o/n. - Objective Vital Signs & Weight: Vital Signs (12 hours) Temp Pulse BP Pulse Ox 08/06/19 09:10 50 L 125/56 L 08/06/19 09:00 97.1 F L 95 Weight Admit Weight 141 lb Weight 150 lb 2.157 oz Most Recent Monitor Data Heart Rate from ECG 80 NIBP 116/72 NIBP BP-Mean 86 Respiration from ECG 20 SpO2 96 I&O: 08/05/19 08/06/19 08/07/19 06:59 06:59 06:59 Intake Total 2304 250 Balance 2304 250 Result Diagrams: 08/05/19 02:30 08/05/19 02:30 Hospitalist ROS - Medication Medications: Active Medications Generic Name Dose Route Start Last Admin Trade Name Freq PRN Reason Stop Dose Admin Albuterol Sulfate 2 puff 08/06/19 01:00 08/06/19 00:44 Proventil Hfa INH 2 puff [id number] ANNA Administration Calcitriol 0.5 mcg 08/05/19 09:00 08/06/19 09:13 Rocaltrol PO 0.5 mcg DAILY ANNA Administration Cholecalciferol 1,000 units 08/05/19 09:00 08/06/19 09:16 Vitamin D3 PO 1,000 units DAILY ANNA Administration Colchicine 0.6 mg 08/05/19 09:00 08/06/19 09:11 Colchicine PO 0.6 mg BID ANNA Administration Docusate Sodium 100 mg 08/05/19 09:00 08/06/19 09:11 Colace PO 100 mg BID ANNA Administration Famotidine 20 mg 08/05/19 09:00 08/06/19 09:12 Pepcid SLOW IVP 20 mg DAILY ANNA Administration Hydralazine HCl 50 mg 08/05/19 09:00 08/06/19 09:10 Apresoline PO 50 mg TID ANNA Administration Sodium Chloride 1,000 mls @ 50 mls/hr 08/05/19 03:45 08/06/19 00:43 Normal Saline 0.9% IV 1,000 mls .Q20H ANNA Administration Levothyroxine Sodium 75 mcg 08/05/19 06:00 08/06/19 06:01 Synthroid PO 75 mcg 0600 ANNA Administration Polyethylene Glycol 17 gm 08/05/19 09:00 08/06/19 09:16 Miralax PO 17 gm DAILY ANNA Administration Rosuvastatin Calcium 40 mg 08/05/19 21:00 08/05/19 20:48 Crestor PO 40 mg HS ANNA Administration - Exam General Appearance: NAD, awake alert, ill appearing Eye: PERRL ENT: normocephalic atraumatic Neck: supple Heart: RRR Respiratory: CTAB Gastrointestinal: soft, normal bowel sounds Neurological: no focal deficits Hosp A/P - Plan 1) Dizziness Code(s): R42 - DIZZINESS AND GIDDINESS Status: Acute (2) Generalized weakness Code(s): R53.1 - WEAKNESS Status: Acute (3) Electrolyte disturbance Code(s): E87.8 - OTH DISORDERS OF ELECTROLYTE AND FLUID BALANCE, NEC Status: Acute (4) TSH elevation significant, severe hypothyroidis -FT4 nl range - cw levo at 75ucg - will repeat TSH in few days. (5) Vomiting Code(s): R11.10 - VOMITING, UNSPECIFIED Status: Acute (6) Lung mass -Pulm consulted. 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 (11) DM2 (diabetes mellitus, type 2) (12) HTN (hypertension) - bp on the low end, hydralazine on hold - restart home lopressor, when BP allows. COVID-19 rule out.--results pending. will fw on repeat TSH
[2019-08-06] MEDS ORDERED: Vancomycin 1 GM in Premix Bag 1 BAG IVPB SCH (13:30)
[2019-08-06 14:50] LABS: Vancomycin, Random 10.7 ug/mL (See Comment)
[2019-08-06] MEDS ORDERED: Vancomycin HCl 1.25 GM in Sodium Chloride 0.9% 250 ML 250 ML IVPB SCH (16:00)
--- NOTE | 2019-08-06 16:02 | PDOC.CPN ---
- Subjective Date: 08/06/19 Time: 15:59 Interval history: No angina. - Review of Systems General: reports: fatigue. denies: fever/chills, weight/appetite/sleep changes , night sweats Respiratory: reports: exercise intolerance. denies: cough, congestion, shortness of breath Cardiovascular: denies: chest pain, palpitation, edema, paroxysmal nocturnal dyspnea, orthopnea Gastrointestinal: denies: nausea, vomiting, diarrhea, constipation, abd pain, GI bleeding Musculoskeletal: denies: pain, tenderness, stiffness, swelling, arthritis/ arthralgias Neurological: denies: numbness, syncope, seizure, weakness - Objective Allergies/Adverse Reactions: Allergies Allergy/AdvReac Type Severity Reaction Status Date / Time No Known Drug Allergies Allergy Verified 08/04/19 22:29 Visit Medications: Current Medications Acetaminophen (Tylenol) 650 mg PO Q4H PRN PRN Reason: Headache/Fever/Mild Pain (1-3) Acetaminophen (Tylenol) 650 mg UT Q4H PRN PRN Reason: Headache/Fever/Mild Pain (1-3) Albuterol Sulfate (Proventil Hfa) 2 puff INH [id number] [facility] Last Admin: 08/06/19 13:00 Dose: Not Given Calcitriol (Rocaltrol) 0.5 mcg PO DAILY [facility] Last Admin: 08/06/19 09:13 Dose: 0.5 mcg Cholecalciferol (Vitamin D3) 1,000 units PO DAILY [facility] Last Admin: 08/06/19 09:16 Dose: 1,000 units Colchicine (Colchicine) 0.6 mg PO BID [facility] Last Admin: 08/06/19 09:11 Dose: 0.6 mg Docusate Sodium (Colace) 100 mg PO BID [facility] Last Admin: 08/06/19 09:11 Dose: 100 mg Famotidine (Pepcid) 20 mg SLOW IVP DAILY [facility] Last Admin: 08/06/19 09:12 Dose: 20 mg Hydralazine HCl (Apresoline) 50 mg PO TID [facility] Last Admin: 08/06/19 09:10 Dose: 50 mg Sodium Chloride (Normal Saline 0.9%) 1,000 mls @ 50 mls/hr IV .Q20H [facility] Last Admin: 08/06/19 00:43 Dose: 1,000 mls Vancomycin HCl 1.25 gm/ Sodium (Chloride) 250 mls @ 166.667 mls/hr IVPB 1600 [facility] Stop: 08/06/19 18:00 Vancomycin HCl 1.25 gm/ Sodium (Chloride) 250 mls @ 166.667 mls/hr IVPB .DOSE BY LEVELS [facility] Levothyroxine Sodium (Synthroid) 75 mcg PO 0600 [facility] Last Admin: 08/06/19 06:01 Dose: 75 mcg Miscellaneous Medication (Pharmacy To Dose) 1 each IVPB PRN PRN PRN Reason: Pharmacy to dose Polyethylene Glycol (Miralax) 17 gm PO DAILY [facility] Last Admin: 08/06/19 09:16 Dose: 17 gm Rosuvastatin Calcium (Crestor) 40 mg PO HS [facility] Last Admin: 08/05/19 20:48 Dose: 40 mg Tramadol HCl (Ultram) 50 mg PO Q6H PRN PRN Reason: Pain Vital Signs & Weight: Vital Signs Temp Pulse BP Pulse Ox 08/06/19 12:00 97.1 F L 08/06/19 09:10 50 L 125/56 L 08/06/19 09:00 97.1 F L 95 Admit Weight 141 lb Weight 150 lb 2.157 oz - Physical Exam General: alert & oriented x3 HEENT: mucus membranes moist Neck: supple neck Cardiac: regular rate and rhythm Lungs: clear to auscultation Neuro: grossly intact Abdomen: active bowel sounds Extremities: no edema Skin: clear Musculoskeletal: no pain - Labs Result Diagrams: 08/05/19 02:30 08/06/19 14:18 Troponin/CKMB CK-MB (CK-2) 1.4 ng/mL (0-6.6) 08/05/19 02:30 Troponin I 0.097 ng/mL (< 0.028) H 08/05/19 02:30 - Telemetry Sinus rhythms and dysrhythmias: sinus rhythm - Assessment/Plan Assessment/Plan: 1. Weakness 2. Lung mass suspicious for Lung Ca 3. Type 2 WHO [place] demand ischemia. 4. COPD PLAN: - CV stable. - Echo to be done. - Will follow - May transfer to telemetry floor.
[2019-08-06] MEDS: Rosuvastatin 20 MG TAB PO SCH (20:43)
--- NOTE | 2019-08-06 22:22 | CON ---
DATE OF CONSULTATION: 08/06/2019 HISTORY OF PRESENT ILLNESS: Ms. Howard is an 89-year-old female, who came to the hospital for complaints of weak and dizzy feeling. She was admitted with a diagnosis of rule out COVID-19. This has been ruled out for all practical purposes. She was placed in the Critical Care Unit because of her complaints. PAST MEDICAL HISTORY: Remarkable for, 1. COPD. 2. History of chronic kidney disease. 3. Diabetes. 4. Hypothyroidism. 5. Hypertension. 6. Tobacco abuse. 7. Appendectomy. 8. Status post hysterectomy. 9. History of thyroidectomy. 10. History of tonsillectomy. 11. History of lung tumor, it has been removed in the past. In reviewing records, it looks like she is followed by Dr. Gutierrez. FAMILY HISTORY: Negative for lung disease in early age. REVIEW OF SYSTEMS: Otherwise negative. She says she is feeling better. She is actually smiling and quite pleasant. PHYSICAL EXAMINATION: VITAL SIGNS: She is afebrile, heart rate is 89, respiratory rate is 16, oximetry is 98% on room air, blood pressure 123/74. HEAD AND NECK: Unremarkable. LUNGS: Clear. HEART: Regular rhythm. ABDOMEN: Soft and nontender. EXTREMITIES: Without edema. NEURO: Nonfocal. Echocardiogram done shows normal ejection fraction, left ventricular hypertrophy , moderate aortic insufficiency, calcified aortic valve with moderate to severe aortic stenosis. IMPRESSION: CT of the chest reveals a 3 cm density in the right lower lobe. There is a 9 mm nodule apparently identified in March of 2018. She is stable to move out of the Critical Care Unit. I will be happy to follow with the other physicians taking care of her. In 89 years of age, I am not sure what the most appropriate workup for this is. She appears frail and obviously has valvular heart disease. I do not think surgery is an option, perhaps a biopsy and stereotactic radiation may be an option if it turns out to be malignant. This is a 70 min consult with greater than 50% of the time spent on the unit with coordination of care. Job ID: [id number] MTDD
[2019-08-07] MEDS: Albuterol 200 PUFF (6.7GM INHALER) INH SCH ×4 (00:17→18:39)
[2019-08-07 05:13] LABS: Free T4 (Free Thyroxine) 0.68 ng/dL (0.70-1.48); Thyroid Stimulating Hormone 40.143 uIU/mL (0.35-4.94)
[2019-08-07] MEDS: Levothyroxine Sodium 75 MCG TAB PO SCH (05:22)
[2019-08-07] MEDS: Calcitriol 0.25 MCG CAP PO SCH (09:41)
[2019-08-07] MEDS: Colchicine 0.6 MG TAB PO SCH (09:41)
[2019-08-07] MEDS: Famotidine/PF 20 mg/2ml Vial SLOW IVP SCH (09:42)
[2019-08-07] MEDS: Polyethylene Glycol 3350 17 GM Packet PO SCH (09:42)
[2019-08-07] MEDS: Docusate 100 MG CAP PO SCH (09:42)
[2019-08-07] MEDS: hydrALAZINE 25 MG TAB PO SCH ×3 (09:43→20:22)
[2019-08-07] MEDS ORDERED: traMADol HCl 50 MG TAB PO PRN (11:15)
--- NOTE | 2019-08-07 13:27 | PDOC.HOSPP ---
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 meds are not very uptodate. i dc'd few home meds as does not seem to be appropriate at this time. Lung cancer workup, new dx, severe Ao stenosis. - Objective Vital Signs & Weight: Vital Signs (12 hours) Temp Pulse Pulse Pulse Resp BP BP 08/07/19 12:00 97.6 F 81 16 08/07/19 09:51 91 106 H 163/83 H 167/87 H 08/07/19 09:50 91 106 H 163/83 H 167/87 H 08/07/19 07:50 98.4 F 92 16 08/07/19 04:46 97.6 F 83 16 BP BP BP BP Pulse Ox 08/07/19 12:00 116/65 95 08/07/19 09:51 08/07/19 09:50 08/07/19 07:50 141/79 H 129/71 124/72 98 08/07/19 04:46 123/71 99 Weight Admit Weight 141 lb Weight 148 lb 3.2 oz Most Recent Monitor Data Heart Rate from ECG 92 NIBP 129/72 NIBP BP-Mean 91 Respiration from ECG 27 SpO2 98 I&O: 08/06/19 08/07/19 08/08/19 06:59 06:59 06:59 Intake Total 2304 2527 Output Total 2 Balance 2304 2525 Result Diagrams: 08/05/19 02:30 08/06/19 14:18 Hospitalist ROS - Medication Medications: Active Medications Generic Name Dose Route Start Last Admin Trade Name Freq PRN Reason Stop Dose Admin Albuterol Sulfate 2 puff 08/06/19 01:00 08/07/19 12:11 Proventil Hfa INH 2 puff [id number] ANNA Administration Calcitriol 0.5 mcg 08/05/19 09:00 08/07/19 09:41 Rocaltrol PO 0.5 mcg DAILY ANNA Administration Cholecalciferol 1,000 units 08/05/19 09:00 08/07/19 09:41 Vitamin D3 PO 1,000 units DAILY ANNA Administration Colchicine 0.6 mg 08/05/19 09:00 08/07/19 09:41 Colchicine PO 0.6 mg BID ANNA Administration Docusate Sodium 100 mg 08/05/19 09:00 08/07/19 09:42 Colace PO Not Given BID ANNA Famotidine 20 mg 08/05/19 09:00 08/07/19 09:42 Pepcid SLOW IVP 20 mg DAILY ANNA Administration Hydralazine HCl 50 mg 08/05/19 09:00 08/07/19 09:43 Apresoline PO 50 mg TID ANNA Administration Sodium Chloride 1,000 mls @ 50 mls/hr 08/05/19 03:45 08/06/19 20:41 Normal Saline 0.9% IV 1,000 mls .Q20H ANNA Administration Levothyroxine Sodium 75 mcg 08/05/19 06:00 08/07/19 05:22 Synthroid PO 75 mcg 0600 ANNA Administration Polyethylene Glycol 17 gm 08/05/19 09:00 08/07/19 09:42 Miralax PO Not Given DAILY ANNA - Exam General Appearance: NAD, ill appearing Eye: PERRL ENT: normocephalic atraumatic Neck: supple Heart: RRR, normal peripheral pulses Respiratory: CTAB, normal chest expansion Gastrointestinal: soft, non-distended, normal bowel sounds Neurological: no focal deficits Hosp A/P - Plan 1) Dizziness Code(s): R42 - DIZZINESS AND GIDDINESS Status: Acute (2) Generalized weakness Code(s): R53.1 - WEAKNESS Status: Acute (3) Electrolyte disturbance Code(s): E87.8 - OTH DISORDERS OF ELECTROLYTE AND FLUID BALANCE, NEC Status: Acute (4) TSH elevation significant, severe hypothyroidis -FT4 nl range - cw levo at 75ucg - will repeat TSH in few days. (6) Lung mass -reveiwed Dr. Gaspar's note - (7) Appetite loss Code(s): R63.0 - ANOREXIA Status: Acute (8) Nnprm-jn-gyhdecg kidney injury Code(s): N17.9 - ACUTE KIDNEY FAILURE, UNSPECIFIED; N18.9 - CHRONIC KIDNEY DISEASE, UNSPECIFIED Status: Acute (9) Elevated troponin Code(s): R79.89 - OTHER SPECIFIED ABNORMAL FINDINGS OF BLOOD CHEMISTRY Status : Acute (10) CHF (congestive heart failure) -Echo pending Abnormal troponin Likely elevated due to ESRD with BIRDIE. (11) DM2 (diabetes mellitus, type 2) (12) HTN (hypertension) - bp on the low end, hydralazine on hold - restart home lopressor, when BP allows. COVID-19 rule out.--results pending. will fw on repeat TSH 4th talk to both sisters Explained risks/benefits of proceeding aggressively on med mgmt reg.. lung cancer and severe ao stenosis - Ms French agrees w.. no aggressive intervention - i also talk to arely. - addressed code status, both sisters dont have POA, they will discuss and let us know reg.. code. until then Full code -CM to work on rehab/SNF -palliative on board.
[2019-08-07] MEDS: Sodium Chloride 0.9% 1,000 ML IV SCH (15:45)
[2019-08-07] MEDS ORDERED: Vancomycin HCl 1.25 GM in Sodium Chloride 0.9% 250 ML 250 ML IVPB SCH (15:45)
[2019-08-07] MEDS: Rosuvastatin 10 MG TAB PO SCH (20:22)
[2019-08-08] MEDS: Albuterol 200 PUFF (6.7GM INHALER) INH SCH ×4 (00:10→19:02)
[2019-08-08] MEDS: Levothyroxine Sodium 112 MCG TAB PO SCH (05:20)
[2019-08-08] MEDS: Calcitriol 0.25 MCG CAP PO SCH (09:21)
[2019-08-08] MEDS: hydrALAZINE 25 MG TAB PO SCH ×3 (09:22→20:28)
[2019-08-08] MEDS: Polyethylene Glycol 3350 17 GM Packet PO SCH (09:28)
[2019-08-08] MEDS: Sodium Chloride 0.9% 1,000 ML IV SCH (11:45)
--- NOTE | 2019-08-08 12:13 | PDOC.HOSPP ---
- Subjective Encounter Date: 08/08/19 Encounter Time: 10:30 Subjective: she is not verbalizing much, not confused, talk to RN. family decided for full code and no intervention for cancer per my conversation. - Objective Vital Signs & Weight: Vital Signs (12 hours) Temp Pulse Resp BP Pulse Ox 08/08/19 11:55 98.2 F 102 H 16 125/69 94 L 08/08/19 07:32 97.9 F 95 20 142/74 H 99 08/08/19 04:12 1 L 08/08/19 03:25 99.3 F 96 20 122/73 99 Weight Admit Weight 141 lb Weight 147 lb 9.6 oz Most Recent Monitor Data Heart Rate from ECG 92 NIBP 129/72 NIBP BP-Mean 91 Respiration from ECG 27 SpO2 98 I&O: 08/07/19 08/08/19 08/09/19 06:59 06:59 06:59 Intake Total 2527 2337 Output Total 2 Balance 2525 2337 Result Diagrams: 08/05/19 02:30 08/07/19 15:57 Additional Labs: Accuchecks 08/08/19 08/08/19 08/07/19 11:04 05:55 20:17 POC Glucose 91 96 117 H 08/07/19 16:41 POC Glucose 101 Hospitalist ROS - Medication Medications: Active Medications Generic Name Dose Route Start Last Admin Trade Name Freq PRN Reason Stop Dose Admin Albuterol Sulfate 2 puff 08/06/19 01:00 08/08/19 08:17 Proventil Hfa INH 2 puff [id number] ANNA Administration Calcitriol 0.5 mcg 08/05/19 09:00 08/08/19 09:21 Rocaltrol PO 0.5 mcg DAILY ANNA Administration Cholecalciferol 1,000 units 08/05/19 09:00 08/08/19 09:21 Vitamin D3 PO 1,000 units DAILY ANNA Administration Hydralazine HCl 50 mg 08/05/19 09:00 08/08/19 09:22 Apresoline PO 50 mg TID ANNA Administration Sodium Chloride 1,000 mls @ 50 mls/hr 08/05/19 03:45 08/08/19 11:45 Normal Saline 0.9% IV 1,000 mls .Q20H ANNA Administration Levothyroxine Sodium 112 mcg 08/08/19 06:00 08/08/19 05:20 Synthroid PO 112 mcg 0600 ANNA Administration Polyethylene Glycol 17 gm 08/05/19 09:00 08/08/19 09:28 Miralax PO Not Given DAILY ANNA Rosuvastatin Calcium 10 mg 08/07/19 21:00 08/07/19 20:22 Crestor PO 10 mg HS ANNA Administration - Exam Eye: PERRL, anicteric sclera ENT: normocephalic atraumatic Neck: supple Heart: RRR Respiratory: CTAB, normal chest expansion Gastrointestinal: soft, normal bowel sounds Neurological: no focal deficits Hosp A/P - Plan 1) Dizziness Code(s): R42 - DIZZINESS AND GIDDINESS Status: Acute (2) Generalized weakness Code(s): R53.1 - WEAKNESS Status: Acute (3) Electrolyte disturbance Code(s): E87.8 - OTH DISORDERS OF ELECTROLYTE AND FLUID BALANCE, NEC Status: Acute (4) TSH elevation significant, severe hypothyroidis -FT4 nl range - cw levo at 75ucg - will repeat TSH in few days. (6) Lung mass -reveiwed Dr. Gaspar's note - (7) Appetite loss Code(s): R63.0 - ANOREXIA Status: Acute (8) Tbstg-rk-satadgk kidney injury Code(s): N17.9 - ACUTE KIDNEY FAILURE, UNSPECIFIED; N18.9 - CHRONIC KIDNEY DISEASE, UNSPECIFIED Status: Acute (9) Elevated troponin Code(s): R79.89 - OTHER SPECIFIED ABNORMAL FINDINGS OF BLOOD CHEMISTRY Status : Acute (10) CHF (congestive heart failure) -Echo pending Abnormal troponin Likely elevated due to ESRD with BIRDIE. (11) DM2 (diabetes mellitus, type 2) (12) HTN (hypertension) - bp on the low end, hydralazine on hold - restart home lopressor, when BP allows. COVID-19 rule out.--results pending. will fw on repeat TSH 4th talk to both sisters Explained risks/benefits of proceeding aggressively on med mgmt reg.. lung cancer and severe ao stenosis - Ms French agrees w.. no aggressive intervention - i also talk to arely. - addressed code status, both sisters dont have POA, they will discuss and let us know reg.. code. until then Full code -CM to work on rehab/SNF -palliative on board. Family wants her to be full code.
--- NOTE | 2019-08-08 15:47 | PRG ---
DATE OF SERVICE: 08/08/2019 SUBJECTIVE: Ms. Howard did well. She was seen today in followup for being in the Critical Care Unit. OBJECTIVE: VITAL SIGNS: She is afebrile. Heart rate 86, respiratory rate 14, oximetry is 96% on room air, blood pressure 135/76. GENERAL: She is lying flat in bed. LUNGS: Clear. IMPRESSION: Abnormal chest x-ray. She is 89 years of age. It is unclear whether or not she is really a candidate for any type of treatment of a malignancy if we were to identify one. A 3 cm in diameter, it is more likely to be malignant unless this resolves on a followup film. At a minimum, she needs followup chest x-ray in 4 to 6 weeks. This is visible on plain films, so I would just simply start with following up the plain chest x-ray in 4 to 6 weeks. Job ID: [id number]
[2019-08-08] MEDS: Rosuvastatin 10 MG TAB PO SCH (20:28)
[2019-08-09] MEDS: Albuterol 200 PUFF (6.7GM INHALER) INH SCH ×3 (00:30→12:45)
[2019-08-09] MEDS: Levothyroxine Sodium 112 MCG TAB PO SCH (05:37)
[2019-08-09] MEDS: Sodium Chloride 0.9% 1,000 ML IV SCH (07:00)
--- NOTE | 2019-08-09 08:12 | PDOC.PALCO ---
Palliative Care Consult - Consult Details Requesting Physician: Dr Gaspar Reason for Consult: family support - Pertinent HPI Prior to admission lived independently in a private setting. Onset of dizziness with increase in unsteady gait that began one month prior to admission and progressively escalated. Ms Howard's daughter spoke to her PCP and he advised she be evaluated in the emergency room. Evaluation identified also that she has had episodes of vomiting with reduced oral intake. CT identified growth of lung mass with dehydration secondary to decrease in intake and episodes of vomiting. Admitted for further evaluation. - Social History Smoking Status: Current some day smoker Smoking: cigarettes Alcohol Use: none Drug Use History: none Living Situation: independent (Uses a cane or walker intermittantly) - Medications MAR Reviewed: Yes - Allergies Allergies/Adverse Reactions: Allergies Allergy/AdvReac Type Severity Reaction Status Date / Time No Known Drug Allergies Allergy Verified 08/04/19 22:29 - Subjective Awake, alert. Converses easily, states "I want to go home". - ROS Constitutional: alert, weakness ENT: alteration in dentition Respiratory: dry cough, other (Denies shortness of breath) Cardiology: other (Denies chest pain, palpitation) Gastrointestinal: intolerance of foods, nausea Genitourinary: other (denies frequency, dysuria) Musculoskeletal: arthritis/arthralgias Neurological: other (denies numbness positive for dizziness and altered gait at times) Psychological: other (denies depression, anxiety) - Objective Vital Signs: Vital Signs - Most Recent Temp Pulse Resp BP Pulse Ox 98.9 F 93 16 144/85 H 97 08/09/19 07:18 08/09/19 07:18 08/09/19 07:18 08/09/19 07:18 08/09/19 07:18 Palliative Performance Scale: 40 - Physical Exam Constitutional: NAD HEENT: moist MMs, sclera anicteric, poor dentition Respiratory: clear to auscultation bilateral, no wheezing, unlabored breathing Cardiovascular: RRR Gastrointestinal: soft, non-tender, positive bowel sounds Genitourinary: incontinent Musculoskeletal: no cyanosis, no clubbing Neurology: moves all 4 limbs Skin: cap refill <2 seconds Psychiatric: normal mood - Problem List (1) Palliative care encounter Code(s): Z51.5 - ENCOUNTER FOR PALLIATIVE CARE Current Visit: Yes Status: Acute (2) Declining functional status Code(s): R53.81 - OTHER MALAISE Current Visit: Yes Status: Acute (3) Kpssc-cy-srkmddd kidney injury Code(s): N17.9 - ACUTE KIDNEY FAILURE, UNSPECIFIED; N18.9 - CHRONIC KIDNEY DISEASE, UNSPECIFIED Current Visit: Yes Status: Acute (4) Dizziness Code(s): R42 - DIZZINESS AND GIDDINESS Current Visit: Yes Status: Acute (5) Generalized weakness Code(s): R53.1 - WEAKNESS Current Visit: Yes Status: Acute (6) Lung mass Code(s): R91.8 - OTHER NONSPECIFIC ABNORMAL FINDING OF LUNG FIELD Current Visit: Yes Status: Acute - Plan/Recommendations Plan: Ms Howard converses easily. Her two daughters are involved in her care and are hopeful for their mothers transition to a detention facility secondary to her decline in the home setting and increasing difficulty in ADL's. Discussed resuscitation measures with Gillian and she and her sister wish to continue with full resuscitation measures for the time. Discussed that it may be a consideration at some point to revisit and allow for a natural . Although they are desiring to maintain with full resuscitation measures they are not electing to seek aggressive measures for identified growth in lung mass. Emotional support and therapeutic listening offered. Please also refer to Shubham Knight RNsteam fitter notes in note section. Palliative Care will sign off as we were consulted for family support. Please reconsult if we can assist in the future with goals of care or revisiting advance directives. [50] minutes spent on this encounter with >50% of the time in counseling and coordination of care. Thank you for this very appropriate consult.
[2019-08-09] MEDS: Calcitriol 0.25 MCG CAP PO SCH (08:58)
[2019-08-09] MEDS: hydrALAZINE 25 MG TAB PO SCH ×2 (08:59→15:29)
[2019-08-09] MEDS: Polyethylene Glycol 3350 17 GM Packet PO SCH (09:00)
[2019-08-09 13:41] VITALS: BMI 26.4
[2019-08-09 15:29] VITALS: BP 153/92; TEMP 98
--- NOTE | 2019-08-09 17:19 | DIS ---
DATE OF ADMISSION: 08/04/2019 DATE OF DISCHARGE: 08/09/2019 DISCHARGE MEDICATIONS: 1. Levothyroxine 112 mcg daily. 2. Calcitriol 0.5 mcg daily. 3. Cholecalciferol 1000 units daily. 4. Hydralazine 50 mg three times a day. 5. MiraLAX. 6. Rosuvastatin 40 mg at bedtime. 7. Lasix 40 mg daily. 8. Metoprolol tartrate 12.5 mg daily. 9. Omeprazole 20 mg daily. 10. Prednisone 20 mg daily. 11. Sitagliptin 25 mg daily. 12. Tramadol 50 mg every 6 hours as needed. DISCHARGE DIAGNOSES: 1. Severe hypothyroidism, suboptimally controlled with subtherapeutic dose and levothyroxine dose increased from 50 mcg to 112 mcg over the time. 2. Lung cancer with previous size of 0.9 pulmonary nodule increased to size 3 x 3 x 2.5 cm and it has lobular margin and small air-filled cyst, in superior segment of right lower lobe, concern for lung cancer. 3. Electrolyte disturbance that is corrected. 4. Overall deconditioning including weight loss and poor oral intake. rzror-da-cqkbhzd kidney injury that is resolved, and her creatinine improved to 1.87 from initial level of 3.11. 5. Type 2 diabetes mellitus. 6. Hypertension. 7. Elevated troponin/abnormal and congestive heart failure. Severe aortic stenosis with valve area of 0.7 cm per square PHYSICAL EXAMINATION: VITAL SIGNS: On the day of discharge, temperature 97.8, pulse 90, blood pressure 122/72. She is saturating 98% on room air. GENERAL: She is alert and oriented x2. She is not verbalizing much, which is the scenario during her entire hospitalization. CARDIOVASCULAR: Regular rate and rhythm without murmurs, rubs, or gallops. LUNGS: Clear to auscultation bilaterally without wheezing, rales, or rhonchi. ABDOMEN: Soft, nontender, nondistended. Good bowel sounds. EXTREMITIES: Without any pitting edema. HOSPITAL COURSE: Please refer to history and physical and progress note for more details. An 89-year-old female admitted with generalized weakness and dizziness. She noted to have significant hypothyroidism with a TSH level around 50 and low T4. Initial home regimen was 50 mcg, increased to 75 and then 112. Her TSH has to be repeated in 2 to 3 weeks by her primary care physician. She also had right upper lobe mass as mentioned above. Her abnormal troponin is due to end-stage renal disease with acute kidney injury. The patient has severe aortic stenosis with valve area of 0.7 cm per square. With so many comorbidities, severe aortic stenosis, chronic kidney disease, and lung mass and being advanced age of 89, has been evaluated for any intervention regarding her cancer. I discussed at length with both the sisters and it has been decided not to have any further intervention for the treatment of lung cancer. The patient will be following with superintendent compressor stations, Dr. Gapsar, as well as her primary care physician. She will be going to the [facility]. She is hemodynamically stable. Has a poor p.o. intake and overall prognosis remains guarded. DISCHARGE INSTRUCTION: Activity as tolerated. Regular diet. Follow up with primary care physician in one week. Follow up with Dr. Lee Gaspar, in 1 to 2 weeks. TSH to be checked in 2 to 3 weeks. TIME SPENT: Discharge time over 30 minutes. Job ID: [id number] MTDD
--- NOTE | 2019-08-11 11:08 | PQF ---
Caren DAVIS SOUNDARI [id number]- [id number] CLINICAL DOCUMENTATION CLARIFICATION FORM: POST DISCHARGE Addendum to original discharge summary date: ____ Late entry note date: __ DATE:08/10/2019 ATTN:ARTEM CHILDS Please exercise your independent, professional judgment in responding to the clarification form. Clinical indicators are provided on the bottom of this form for your review Please check appropriate box(s): HEART FAILURE: A. TYPE: [ ] Systolic / HFrEF [ x] Diastolic / HFpEF [ ] Combined Systolic / Diastolic B. ACUITY [ ] Acute [ ] Acute on Chronic [ x ] Chronic [ ] Other diagnosis [ ] Unable to determine In addition, please specify: Present on Admission (POA): [ x ] Yes [ ] No [ ] Unable to determine For continuity of documentation, please document condition throughout progress notes and discharge summary. Thank You. 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 All Rights Reserved [email or web address]
--- NOTE | 2019-08-11 11:28 | PQF ---
Caren DAVIS SOUNDARI [id number]- [id number] CLINICAL DOCUMENTATION CLARIFICATION FORM: POST DISCHARGE Addendum to original discharge summary date: ____ Late entry note date: __ Date: 08/11/2019 ATTN: ARTEM CHILDS Please exercise your independent, professional judgment in responding to the clarification form. Clinical indicators are provided on the bottom of this form for your review Please check appropriate box(s): [x ] Protein Calorie Malnutrition: [ x ] Mild [ ] Moderate [ ] Severe [ ] Other Malnutrition (please specify) __ [ ] Underweight without malnutrition [ ] Cachexia [ ] Other diagnosis [ ] Unable to determine In addition, please specify: Present on Admission (POA): [x ] Yes [ ] No [ ] Unable to determine CLINICAL INDICATORS - SIGNS / SYMPTOMS / LABS - Overall deconditioning including weight loss and poor oral intake- , 08/08, ARTEM CHILDS - Albumin: 3.7-Laboratory report, 08/03 - Total troponin: 7.5-Laboratory report, 08/03 - Calculated BMI: 24.2-FNS assessment - 14.5% weight loss over the past 7 months, reports of decreased intake of several weeks, recent n/V, RLL mass noted- FNS assessment RISK FACTORS - Lung cancer-DS, 08/08, ARTEM CHILDS - Hypothyroidism-DS, 08/08, ARTEM CHILDS TREATMENT: - Electrolytic disturbance correct, , 08/08, ARTEM CHILDS - Nepro BID- FNS assessment - Ensure-- FNS assessment Moderate Malnutrition (in acute illness) Energy Intake: <75% of estimated energy requirement for > 7 days Weight Loss: 1-2%/1 week; 5%/ 1 month; 7.5%/3 months Other: mild body fat loss; mild muscle mass loss; mild fluid accumulation; Severe Malnutrition (in acute illness) Energy Intake: < 50% of estimated energy requirement for > 5 days Weight Loss: >1-2%/1 week; >5%/1 month; >7.5%/3 months Other: moderate body fat loss; moderate muscle mass loss; moderate- severe fluid accumulation; measurably reduced tailor men's ready to wear strength Moderate Malnutrition (in chronic illness) Energy Intake: <75% of estimated energy requirement for >1 month Weight Loss: 5%/1 month; 7.5%/3 months; 10%/6 months; 20%/1 year Other: mild body fat loss; mild muscle mass loss; mild fluid accumulation Severe Malnutrition (in chronic illness) Energy Intake: <75% of estimated energy requirement for >1 month Weight Loss: >5%/1 month; >7.5%/3 months; >10%/6 months; >20%/1 year Other: severe body fat loss; severe muscle mass loss; severe fluid accumulation ; measurably reduced tailor men's ready to wear strength This form is maintained as a part of the permanent medical record) 2014 [employer]. All Rights Reserved [email or web address] [email or web address]
== END 2019-08-09 15:47 | DRG 643 ==
LOC: ERS 14:13 → 2SW 17:38 → CCU 08-05 05:15 → 2NO 08-06 16:44
PROVIDERS: ADMIT Family Medicine; ATTEND Family Medicine
PROC: 8E0ZXY6 Isolation (ICD-10-PCS; principal; 2019-08-04)
DX: E03.9 Hypothyroidism, unspecified (principal); N18.6 End stage renal disease; N17.9 Acute kidney failure, unspecified; C34.31 Malignant neoplasm of lower lobe, right bronchus or lung; I13.2 Hypertensive heart and chronic kidney disease with heart failure and with stage 5 chronic kidney disease, or end stage renal disease; I50.32 Chronic diastolic (congestive) heart failure; E44.1 Mild protein-calorie malnutrition; Z20.828 Contact with and (suspected) exposure to other viral communicable diseases; R53.81 Other malaise; Z51.5 Encounter for palliative care; E11.22 Type 2 diabetes mellitus with diabetic chronic kidney disease; I50.9 Heart failure, unspecified; I35.0 Nonrheumatic aortic (valve) stenosis; J44.9 Chronic obstructive pulmonary disease, unspecified; F17.210 Nicotine dependence, cigarettes, uncomplicated; Z90.49 Acquired absence of other specified parts of digestive tract; Z90.710 Acquired absence of both cervix and uterus; Z68.26 Body mass index [BMI] 26.0-26.9, adult
CPT/HCPCS: 36415; 36416; 70450; 71045; 71250; 80048; 80053; 80202; 81003; 81015; 82553; 82565; 83605; 83735; 84439; 84443; 84481; 84484; 84520; 85025; 87040; 87086; 87149; 87635; 93005; 93010; 93306; 94760; 96360; 96372; J1650; J3370; J7050; S0028; U0003

== ENCOUNTER 2019-08-16 03:34 | Emergency (ER) | payer MEDICARE, BC ==
[2019-08-16 04:24] LABS: Bilirubin Negative (Negative); Blood, Urine Negative (Negative); Clarity Turbid (Clear); Glucose, Urine (Dipstick) Normal (Negative); Leukocyte Negative Leu/uL (Negative); Nitrite Negative (Negative); Protein, Urine (Dipstick) 30 mg/dL (Neg-Trace); RBC/HPF 0-3 HPF (0-3); Squamous Epithelial Greater than 50 HPF (0-3); Urobilinogen Normal mg/dL (Less than 2); WBC/HPF 0-3 HPF (0-3)
[2019-08-16 04:25] LABS: Hemoglobin 10.1 g/dL (12.0-16.0); Mean Corpuscular HGB CONC 28.9 g/dL (32.0-36.0); Mean Corpuscular Hemoglobin 25.3 pg (27.0-31.0); Mean Corpuscular Volume 87.4 fL (78.0-98.0); Mean Platelet Volume 11.6 fL (7.4-10.4); Platelet Count 168 thou/uL (130-400); RBC Distribution Width 17.9 % (11.5-14.5); Red Blood Cell (RBC) Count 3.99 mill/uL (4.20-5.40); White Blood Cell (WBC) Count 8.9 thou/uL (4.8-10.8)
[2019-08-16 04:25] LABS: Bacteria/HPF 1+ HPF (None Seen)
[2019-08-16 04:46] LABS: ALT (SGPT) 21 U/L (8-55); AST (SGOT) 23 U/L (5-34); Albumin 3.2 g/dL (3.4-4.8); Alkaline Phosphatase 98 U/L (40-110); Anion Gap 13 mmol/L (10-20); BUN (Urea Nitrogen) 26 mg/dL (9.8-20.1); Bilirubin, Total 0.3 mg/dL (0.2-1.2); Calc. Creatinine Clearance 0 mL/min (70-130); Calcium 11.8 mg/dL (7.8-10.44); Carbon Dioxide 22 mmol/L (23-31); Chloride 107 mmol/L (98-107); Estimated GFR-MDRD 32; Globulin 2.5 g/dL (2.4-3.5); Glucose 96 mg/dL (83-110); Lipase 20 U/L (8-78); Potassium 4.2 mmol/L (3.5-5.1); Protein, Total 5.7 g/dL (6.0-8.3); Sodium 138 mmol/L (136-145)
[2019-08-16 05:02] LABS: #Eosinphils 0.1 thou/uL (0.0-0.7); #Lymphocytes 2.3 thou/uL (1.20-3.40); #Monocytes 1.1 thou/uL (0.11-0.59); #Neutrophils 5.3 thou/uL (1.40-6.50); %Basophils 0.5 % (0.0-1.0); %Eosinophils 0.6 % (0.0-10.0); %Lymphocytes 26.1 % (21.0-51.0); %Monocytes 12.8 % (0.0-10.0); Burr Cells SLIGHT = 2-5 cells (100X) (0-1/hpf); Elliptocytes SLIGHT = 2-5 cells (100X) (0-1/hpf); MDiff Complete? YES
--- NOTE | 2019-08-16 08:32 | CT ---
PRELIMINARY REPORT/[facility]/EMERGENCY AFTER HOURS EXAM: CT Abdomen and Pelvis Without Intravenous Contrast CLINICAL HISTORY: Patient presents with a chief complaint of abdominal pain. Patient says her pain began during the nig ht and is worse in the right mid and upper abdomen. She has had no nausea or vomiting. She says her l ast bowel movement was about a week ago, and this is unusual for her. She denies fever. She does comp dimas of pain in her lower abdomen and vaginal area as well. TECHNIQUE: Axial computed tomography images of the abdomen and pelvis without intravenous contrast. CONTRAST: None. COMPARISON: None provided. FINDINGS: LUNG BASES: Trace right pleural effusion. Mild cardiomegaly. LIVER: Unremarkable. GALLBLADDER AND BILE DUCTS: Unremarkable. No calcified stone. No ductal dilation. PANCREAS: Unremarkable. SPLEEN: Unremarkable. 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 KIDNEYS, URETERS, AND BLADDER: 2.7 cm left renal cyst. 2 mm nonobstructing stone left kidney. No hydr onephrosis. STOMACH AND BOWEL: Large amount of stool within the rectum measuring up to 7.3 cm and correlation for fecal impaction is recommended. Colonic diverticulosis without evidence of diverticulitis. No bowel obstruction. APPENDIX: No CT evidence for appendicitis. PERITONEUM: No free fluid. No free air. LYMPH NODES: No lymphadenopathy. REPRODUCTIVE: Status post hysterectomy. VASCULATURE: Atherosclerotic calcifications of the aorta. ABDOMINAL WALL AND SOFT TISSUES: Unremarkable. BONES: Degenerative changes of the spine. IMPRESSION: Large amount of stool within the rectum measuring up to 7.3 cm and correlation for fecal impaction is recommended. Additional chronic findings as described above. FINAL REPORT: CT ABDOMEN AND PELVIS WITHOUT CONTRAST: Comparison: 01-16-19 FINDINGS/IMPRESSION: I agree with the findings and impression given in the preliminary report per [facility] physici an. 1. There is a large amount of stool in the rectal vault. This is stable compared to the prior exam. C orrelate with physical exam for fecal impaction. 2. Diverticulosis. 3. Left renal cyst. 4. Nonobstructing left renal calcifications. 5. Small right pleural effusion with calcified pleural plaque in the right lung base. POS: EAA
--- NOTE | 2019-08-19 13:22 | EKG ---
Test Reason : DYSPNEA Blood Pressure : / mmHG Vent. Rate : 051 BPM Atrial Rate : 051 BPM P-R Int : 000 ms QRS Dur : 108 ms QT Int : 446 ms P-R-T Axes : 000 -45 088 degrees QTc Int : 411 ms Junctional rhythm Left anterior fascicular block Left ventricular hypertrophy with repolarization abnormality Abnormal ECG Confirmed by ACOSTA BARRERA ([id number]), scientific editor KUNAL WHITNEY ([id number] on 08/19/2019 1:22:23 PM Referred By: Confirmed By:ACOSTA BARRERA
== END 2019-08-16 05:48 | disposition home or self-care (01) ==
LOC: ERS 03:34
DX: R10.11 Right upper quadrant pain (principal); L89.151 Pressure ulcer of sacral region, stage 1; R06.00 Dyspnea, unspecified; E11.22 Type 2 diabetes mellitus with diabetic chronic kidney disease; I12.0 Hypertensive chronic kidney disease with stage 5 chronic kidney disease or end stage renal disease; N18.6 End stage renal disease; E03.9 Hypothyroidism, unspecified; J44.9 Chronic obstructive pulmonary disease, unspecified; M10.9 Gout, unspecified; F17.210 Nicotine dependence, cigarettes, uncomplicated; Z79.899 Other long term (current) drug therapy
CPT/HCPCS: 36415; 51701; 74176; 80053; 81003; 81015; 83690; 83880; 85025; 93005; A4353

== ENCOUNTER 2019-09-17 04:25 | Emergency (ER) | payer MEDICARE, BC, OTHER ==
[2019-09-17 05:08] LABS: Actual Bicarbonate (HCO3a) 20.1 mEq/L (22-28); Analyzer IN Cardio ER; Base Excess (BEa) -14.1 mEq/L (-2.0 to +3.0); Carboxyhemoglobin (COHb) 0.2 gm% (0.0-3.0); Hemoglobin (Hb) 8.4 g/dL (12.0-16.0); Potassium - ABG Lab 4.63 mmol/L (3.70-5.30)
[2019-09-17] MEDS ORDERED: EPINEPHrine 1 MG, Admixture Fee 1 EACH in Dextrose 5% in Water 250 ML IVPB SCH (05:15)
[2019-09-17 05:16] LABS: pH, Arterial 6.83 (7.35-7.45)
[2019-09-17 05:17] LABS: CO2 Tension 123.1 mmHg (35.0-45.0); O2 Tension (PaO2), arterial 42.6 mmHg (> 60.0); Puncture Site RRA
[2019-09-17 05:18] LABS: ALV-art Gradient 516.525 (0-20)
[2019-09-17 05:25] LABS: Anion Gap 26 mmol/L (10-20); BUN (Urea Nitrogen) 91 mg/dL (9.8-20.1); Calc. Creatinine Clearance 0 mL/min (70-130); Carbon Dioxide 16 mmol/L (23-31); Chloride 114 mmol/L (98-107); Estimated GFR-MDRD 17; Potassium 5.6 mmol/L (3.5-5.1); Sodium 150 mmol/L (136-145)
[2019-09-17 05:26] LABS: ALT (SGPT) 1737 U/L (8-55); AST (SGOT) 1526 U/L (5-34); Alkaline Phosphatase 111 U/L (40-110); Bilirubin, Total 0.3 mg/dL (0.2-1.2); Globulin 2.1 g/dL (2.4-3.5); Glucose 176 mg/dL (83-110); Magnesium 3.3 mg/dL (1.6-2.6); Protein, Total 4.1 g/dL (6.0-8.3)
[2019-09-17] MEDS ORDERED: Vancomycin 1 GM/200 ML BAG ONE (05:29)
[2019-09-17] MEDS ORDERED: Cefepime 1 GM VIAL ONE (05:29)
[2019-09-17] MEDS ORDERED: Sodium Chloride 0.9% 100 ML ONE (05:29)
[2019-09-17 05:41] LABS: Band 13 % (5-11); Crenated RBC MODERATE= 6-15 cells (100X) (None Seen); Elliptocytes MODERATE= 6-15 cells (100X) (0-1/hpf); Eosinophils 1 % (0-10); Hemoglobin 9.3 g/dL (12.0-16.0); Large Platelets SLIGHT; Lymphocytes 17 % (21-51); MDiff Complete? YES; Mean Corpuscular HGB CONC 29.1 g/dL (32.0-36.0); Mean Corpuscular Hemoglobin 26.4 pg (27.0-31.0); Mean Platelet Volume 13.4 fL (7.4-10.4); Metamyelocyte 6 % (0-0); Monocytes 10 % (0-10); Neutrophil 52 % (42-75); Nucleated RBC 5 % (0); Platelet Count 78 thou/uL (130-400); Platelet Morphology Comment Appears Decreased; RBC Distribution Width 19.9 % (11.5-14.5); Reactive Lymphocytes 1 % (0-10); Red Blood Cell (RBC) Count 3.53 mill/uL (4.20-5.40)
--- NOTE | 2019-09-17 08:12 | RAD ---
Exam: Chest one view HISTORY:Ventilated patient. Respiratory distress. CPR. Comparison: 08/04/2019 FINDINGS: Cardiac silhouette:Cardiomegaly. Aorta: Atherosclerosis of the aorta. Pulmonary vessels: Normal Costophrenic angles: Bilateral pleural effusions are suspected LUNGS: Right perihilar and left lower lobe consolidation. Additional patchy interstitial and alveolar opacities are noted. Pneumothorax: None Osseous abnormalities: No acute osseous abnormalities Lines and tubes: Endotracheal tube terminates at the level of clavicles. Nasogastric tube extends bey ond the diaphragm. 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 IMPRESSION: 1. Lines and tubes as above. Consider advancement of the nasogastric tube given of the sidehole at th e distal thoracic esophagus. 2. Possible congestive heart failure. Superimposed pneumonia and/or aspiration cannot be excluded.
[2019-09-17] MEDS ORDERED: EPINEPHrine 1 MG/10 ML Abboject SYRINGE ONE (09:03)
[2019-09-17] MEDS ORDERED: Atropine Sulfate 1 mg/10 ml Syringe ONE (09:03)
[2019-09-17] MEDS ORDERED: Sodium Bicarb 50 MEQ/50 ML Abboject 8.4% SYRINGE ONE (09:03)
[2019-09-17 12:26] LABS: SARS-CoV-2 MS2 Positive; SARS-CoV-2 N Gene Negative; SARS-CoV-2 S Gene Negative; SARS-CoV-2 orf1ab Negative
--- NOTE | 2019-09-23 14:39 | EKG ---
Test Reason : Blood Pressure : / mmHG Vent. Rate : 057 BPM Atrial Rate : 057 BPM P-R Int : 124 ms QRS Dur : 150 ms QT Int : 488 ms P-R-T Axes : 110 -69 090 degrees QTc Int : 474 ms Sinus bradycardia Right bundle branch block Left anterior fascicular block Bifascicular block Left ventricular hypertrophy with repolarization abnormality Abnormal ECG Confirmed by ACOSTA BARRERA ([id number]), editorial specialist KUNAL WHITNEY ([id number]) on 09/23/2019 2:38:48 PM Referred By: Confirmed By:ACOSTA BARRERA
== END 2019-09-17 06:30 | disposition expired ==
LOC: ERS 04:25
DX: I46.9 Cardiac arrest, cause unspecified (principal); E87.2 Acidosis; E03.9 Hypothyroidism, unspecified; I12.0 Hypertensive chronic kidney disease with stage 5 chronic kidney disease or end stage renal disease; N18.6 End stage renal disease; E11.22 Type 2 diabetes mellitus with diabetic chronic kidney disease; J44.9 Chronic obstructive pulmonary disease, unspecified; M10.9 Gout, unspecified; I35.9 Nonrheumatic aortic valve disorder, unspecified; Z79.899 Other long term (current) drug therapy
CPT/HCPCS: 71045; 80053; 82553; 82805; 83605; 83735; 83880; 84484; 85025; 85379; 87040; 87077; 87186; 93005; U0003; 51702; 87635; 96365; 96375; 96376; 99292; J0171; J0461; J0692; J1956; J3370; J3490; J7070